=== PATIENT | male | born 1935 | race Caucasian/White ===

== ENCOUNTER 2016-09-24 05:59 | Inpatient (IN) ==
[2016-09-24] MEDS ORDERED: POTASSIUM CHLORIDE RIDER 10 MEQ in PREMIX 1 EACH IV PRN (06:03)
[2016-09-24] MEDS ORDERED: ASPIRIN 325 MG TABLET PO ONE (06:03)
[2016-09-24] MEDS ORDERED: DIAZEPAM 5 MG TABLET PO ONE (06:03)
[2016-09-24] MEDS ORDERED: MAGNESIUM SULF RIDER 2 GM in PREMIX 1 EACH IV PRN (06:03)
[2016-09-24] MEDS ORDERED: diphenhydrAMINE CAP 25 MG CAPSULE PO ONE (06:03)
[2016-09-24] MEDS ORDERED: HEPARIN/NACL 0.9% 2 UNITS/ML 1,000 ML IV ONE ×2 (06:38→06:44)
[2016-09-24] MEDS ORDERED: LIDOCAINE 1% 20 ML VIAL ONE ×2 (06:38→06:44)
[2016-09-24] MEDS ORDERED: DIAZEPAM 5 MG TABLET ONE (07:07)
[2016-09-24] MEDS ORDERED: diphenhydrAMINE CAP 25 MG CAPSULE ONE (07:07)
--- NOTE | 2016-09-24 07:09 | History and Physical Update ---
Sedation H&P Update - History and Physical H&P was reviewed, the patient examined and there: are no changes in the patients condition since last H&P was completed. - Dictation Physical: refer to scanned H&P - Physical Exam Mental Status: alert and oriented Heart: regular rate and rhythm Lung: clear to auscultation Abdomen: within normal limits Vitals: within normal limits - Sedation Plan for Sedation: moderate Patient Consent: Procedure disscussed with patient and patinet has consented., Risks and benefits were discussed with patient,including infection,, bleeding, injury to surrounding structures, seizure, temporary nerve, Patient understands and accepts potential risks/benefits and agrees to, proceed. ASA Class: II Airway Assessment: Class II: Soft palate, uvula, fauces visible
[2016-09-24] MEDS: SODIUM CHLORIDE 0.9% 1,000 ML IV SCH ×2 (07:10→17:46)
[2016-09-24] MEDS ORDERED: HYDROmorphone 2 MG/1 ML VIAL ONE (07:19)
[2016-09-24] MEDS ORDERED: MIDAZOLAM 2 MG/2 ML VIAL ONE (07:19)
[2016-09-24] MEDS ORDERED: ZALEPLON 5 MG CAPSULE PO PRN (08:12)
[2016-09-24] MEDS ORDERED: NITROGLYCERIN SL 0.4 MG TABLET SL PRN (08:12)
[2016-09-24] MEDS ORDERED: ONDANSETRON 4 MG/2 ML VIAL IV PRN (08:12)
[2016-09-24] MEDS ORDERED: ACETAMINOPHEN 325 MG TABLET PO PRN (08:12)
--- NOTE | 2016-09-24 08:12 | Cardiac Catheterization ---
Date of Procedure:: 09/24/16 Pre-op Diagnosis: Chest pain CAD Post-op diagnosis: same Procedure: Cardiac catheterization procedure note #1 left heart catheterization #2 selective coronary angiography #3 left ventriculography #4 vein graft angiography #5 KIRK angiography Omnipaque was used for the procedure Description of procedure Following sterile preparation draping of the right groin local anesthesia was achieved by infiltration with 1% Xylocaine. Using a Cook needle the right femoral artery was cannulated and a #6 sheath was inserted. A 6 Moroccan pigtail catheter introduced and advanced retrograde across aortic valve into the left ventricle and the end-diastolic pressure was recorded. Left ventricular atrophy was performed the DENNIS projection using 24 cc of contrast. A pullback recording was made across aortic valve. The pigtail catheter change for a 6 Moroccan left Kuldip catheter and left coronary angiography was performed in limited views. Catheter change for a 6 Moroccan right Amplatz catheter and right coronary angiography was performed in the HUNGARIAN projection only. The catheter change for a 6 Moroccan left coronary bypass graft catheter and vein graft angiography was performed in DENNIS and HUNGARIAN projections. The catheter change for a 6 Moroccan JENN catheter and KIRK angiography was performed in the HUNGARIAN projection only. The catheter and sheath were then removed and the femoral arteriotomy site was sealed percutaneously minx closure device with prompt cessation of bleeding and prompt return of femoral and foot pulses. The patient transferred back to telemetry in stable condition. Hemodynamic data Aortic pressure 132/54 mean of 86 LV 132/18 Selective coronary angiography the left main trunk has an ulcerated 90% distal stenosis. The LAD is densely calcified and occluded proximally. The circumflex is occluded proximally after a small OM1 takeoff. Right coronary is calcified and occluded proximally. The saphenous vein graft to the OM branch has a 90% stenosis in the midportion of the graft and a 99% stenosis at the distal anastomosis. Two moderate size OM branches extend out to the apex and are patent. The vein graft to the LAD has a ulcerated 99% proximal stenosis with slow flow. The distal LAD reaches the apex and has mild disease only. The vein graft to the distal right coronary has a 70% distal stenosis. This vessel provides right to left collaterals to several septal perforators. The JENN is a 2.5 Mazariegos non- tortuous patent vessel and excellent potential conduit for revascularization. Left ventriculography Ejection fraction is 50% with mild global hypokinesis. No mitral regurgitation under the conditions of the study. Conclusions #1 increased LVEDP 18 #2 ejection fraction 50% with mild global hypokinesis #3 no mitral regurgitation #4 no aortic valve gradient #5 left main trunk-ulcerated 90% distal stenosis #6 LAD-calcified, 100% proximal occlusion #7 circumflex-100% occlusion after small OM1 branch #8 dominant right coronary-calcified, 100% proximal occlusion #9 SVG to OM-yes sequential 90% mid and 99% distal anastomosis lesions. #10 SVG to LAD-ulcerated 99% proximal stenosis with slow flow. The distal LAD has mild disease only. #11 SVG to distal RCA-70% distal stenosis. This vessel provides right to left collaterals to several septal perforators #12 KIRK-2.5 mm non-tortuous widely patent vessel. Disposition The patient status post three-vessel CABG in 1991. 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 Significant myocardium is at risk. Dr. Harris has been counseled for redo CABG. Cine pictures were reviewed with the patient's Erick and his daughters Jessa and Liv. Continue normal saline hydration and recheck BMP in a.m. Implants: No implants Anesthesia: moderate conscious sedation Surgeon / Physician: Mark Anthony Wing Estimated blood loss: minimal Specimens: none sent Condition: stable Disposition: floor - Medications / Follow-up
[2016-09-24] MEDS: ATENOLOL 25 MG TABLET PO SCH (08:42)
[2016-09-24] MEDS ORDERED: ALFALFA PO SCH (09:00)
[2016-09-24] MEDS ORDERED: DEXTROSE 50% 25 GM/50 ML VIAL IV PRN ×2 (09:19)
[2016-09-24] MEDS ORDERED: GLUCAGON 1 MG VIAL IM PRN ×2 (09:19)
--- NOTE | 2016-09-24 09:19 | Cardiothoracic Progress Note ---
Cardiothoracic Subjective Interval history: Patient is a 80-year-old man who had coronary bypass surgery 25 years ago at which time he underwent triple-vessel grafting with saphenous vein graft to the anterior descending circumflex marginal and right coronary arteries. He had done well until recently when he has begun to have exertional chest discomfort and was admitted as an outpatient today for catheterization. Cardiac cath revealed occlusion of all 3 [place] coronary arteries with patency of his saphenous vein grafts but high-grade occlusive disease in all 3 bypass grafts. I agree that he would benefit from repeat bypass surgery and he is to be admitted for that purpose. I have scheduled surgery for Saturday morning and discussed it at length with the patient and his and daughters. Exam (Progress Note) - Constitutional Vitals: Period Temp Pulse Resp BP Sys/Lea Pulse Ox Last 24 Hr 97.9 F-97.9 F 58-58 16-16 164-164/78-78 96-97 Quality Measures - VTE Contraindication to Mechanical VTE Prophylaxis: Trauma to Legs
[2016-09-24] MEDS ORDERED: SODIUM CHLORIDE 0.9% 1,000 ML IV SCH (09:30)
[2016-09-24] MEDS ORDERED: ALBUTEROL 2.5 MG/3 ML NEB RESP TX PRN (13:00)
[2016-09-24] MEDS: LISINOPRIL/HCTZ 20-12.5 MG TABLET PO SCH (14:36)
[2016-09-24] MEDS: PANTOPRAZOLE 40 MG TABLET PO SCH (14:36)
[2016-09-24] MEDS: ROSUVASTATIN 20 MG TABLET PO SCH (21:24)
[2016-09-24] MEDS: ASPIRIN CHEW 81 MG TABLET PO SCH (21:24)
[2016-09-24] MEDS: CHLORHEXIDINE 0.12% ORAL RINSE 60 ML BOTTLE SWISH/SPIT SCH (21:25)
[2016-09-25] MEDS: SODIUM CHLORIDE 0.9% 1,000 ML IV SCH ×3 (01:50→15:27)
[2016-09-25 03:56] LABS: Allen Test Positive; Pt O2 Delivery Device Room Air
[2016-09-25 03:58] LABS: ABG HCO3 25.3 MMOL/L (20-26); ABG Oxygen Saturation 96.3 % (95-100); ABG PCO2 41.4 MM HG (35-48); ABG PH 7.403 (7.35-7.45); ABG PO2 78.2 MM HG (80-95); ABG TCO2 22.9 MMOL/L (23-27)
[2016-09-25 05:15] LABS: Basophils # 0.1 10*3/uL (0.0-0.2); Eosinophils # 0.3 10*3/uL (0.0-0.87); Eosinophils % 5.5 % (0.00-10.9); Hematocrit 37.5 VOL% (42.0-52.0); Hemoglobin 12.5 GM/DL (14.0-18.0); Immature Granulocytes % 0.6 %; Immature Granulocytes Absolute 0.03 #; Lymphocytes # 1.1 10*3/uL (1.4-4.0); Lymphocytes % 21.6 % (21.2-54.2); Mean Corpuscular HGB Conc 33.3 GM/DL (32-36); Mean Corpuscular Hemoglobin 29 PG (27-34); Mean Platelet Volume 9.3 FL (9.6-12.0); Monocytes # 0.6 10*3/uL (0.11-0.8); Monocytes % 12.1 % (1.7-12.7); Neutrophils % 59.2 % (38.7-73.9); Platelet Count 117 T/CUMM (130-400); Red Blood Count 4.36 MC/CUMM (3.8-5.5); Red Cell Distribution Width 14.5 % (9.3-17.3); White Blood Count 5.1 T/CUMM (4-12)
[2016-09-25 05:53] LABS: Albumin 2.7 G/DL (3.4-5.0); Bilirubin,Total 0.5 MG/DL (0.2-1.0); Osmolality,Calculated 280.3 MOS/KG (273-304)
--- NOTE | 2016-09-25 07:48 | EKG Report ---
Stationary ECG Study [facility] Test Date: 09/25/2016 7:47:07 AM Pat Name: JUAN BAKER Department: Room: 284 Gender: M Doctor Naturopathic: MCKENZIE : 1935 Requested by: Margarito Zepeda Order Number: [id number] Scotty MD: GHAZAL MARKHAM Intervals [place] Rate: 51 P: 62 NH: 167 QRS: 100 QRSD: 146 T: -87 QT: 462 QTc: 438 Interpretive Statements SINUS BRADYCARDIA WITH SINUS ARRHYTHMIA at 51 bpm RIGHT BUNDLE BRANCH BLOCK Electronically Signed On 09-25-16 08:25:33 CDT by GHAZAL MARKHAM [email or web address]
[2016-09-25] MEDS: LISINOPRIL/HCTZ 20-12.5 MG TABLET PO SCH (08:49)
[2016-09-25] MEDS: CHLORHEXIDINE 0.12% ORAL RINSE 60 ML BOTTLE SWISH/SPIT SCH ×2 (08:49→21:35)
[2016-09-25] MEDS: CHLORHEXIDINE 4% SOLN 118 ML BOTTLE TOP SCH ×3 (08:49→21:35)
[2016-09-25] MEDS: PANTOPRAZOLE 40 MG TABLET PO SCH (08:49)
[2016-09-25] MEDS: ATENOLOL 25 MG TABLET PO SCH (08:51)
--- NOTE | 2016-09-25 09:03 | Cardiothoracic Progress Note ---
Cardiothoracic Subjective Interval history: Patient is ready for surgery in the morning. Laboratory and x-ray studies look basically within normal limits. Patient has been pain-free since his catheterization yesterday. Exam (Progress Note) - Constitutional Vitals: Period Temp Pulse Resp BP Sys/Lea Pulse Ox Last 24 Hr 97.2 F-99.2 F 47-88 18-20 104-144/53-85 91-99 Result/EKG - Labs CBC & BMP: 09/25/16 03:25 09/25/16 03:25 Labs: Laboratory Results - last 24 hr 09/25/16 09/25/16 09/25/16 03:25 03:25 03:25 WBC 5.1 RBC 4.36 Hgb 12.5 L Hct 37.5 L MCV 86.0 L MCH 29 MCHC 33.3 RDW 14.5 Plt Count 117 L MPV 9.3 L Neut % (Auto) 59.2 Lymph % (Auto) 21.6 [place] % (Auto) 12.1 Eos % (Auto) 5.5 Baso % (Auto) 1.0 H Neut # (Auto) 3.0 Lymph # (Auto) 1.1 L [place] # (Auto) 0.6 Eos # (Auto) 0.3 Baso # (Auto) 0.1 Immature Gran % 0.6 Nucleated RBC % 0.0 Immature Gran # 0.03 Nucleated RBCs # 0.00 Immature Plt Fraction 0.0 ABG pH ABG pCO2 ABG pO2 ABG HCO3 ABG Total CO2 ABG O2 Saturation ABG Base Excess FiO2 Sodium 141 Potassium 4.0 Chloride 108 H Carbon Dioxide 27 Anion Gap 10.0 BUN 12 Creatinine 0.90 GFR Calculation 93 BUN/Creatinine Ratio 13.00 Glucose 94 Calculated Osmolality 280.3 Calcium 8.0 L Total Bilirubin 0.50 AST 16 ALT 17 Alkaline Phosphatase 51 Total Protein 5.0 L Albumin 2.7 L Globulin 2.3 Albumin/Globulin Ratio 1.1 Blood Type AB NEGATIVE Antibody Screen Negative Crossmatch See Detail 09/25/16 09/25/16 03:40 Unknown WBC RBC Hgb Hct MCV MCH MCHC RDW Plt Count MPV Neut % (Auto) Lymph % (Auto) [place] % (Auto) Eos % (Auto) Baso % (Auto) Neut # (Auto) Lymph # (Auto) [place] # (Auto) Eos # (Auto) Baso # (Auto) Immature Gran % Nucleated RBC % Immature Gran # Nucleated RBCs # Immature Plt Fraction ABG pH 7.403 ABG pCO2 41.4 ABG pO2 78.2 L ABG HCO3 25.3 ABG Total CO2 22.9 L ABG O2 Saturation 96.3 ABG Base Excess 1.0 FiO2 21.00 Sodium Potassium Chloride Carbon Dioxide Anion Gap BUN Creatinine GFR Calculation BUN/Creatinine Ratio Glucose Calculated Osmolality Calcium Total Bilirubin AST ALT Alkaline Phosphatase Total Protein Albumin Globulin Albumin/Globulin Ratio Blood Type AB NEGATIVE Antibody Screen Crossmatch Quality Measures - VTE Contraindication to Pharmacological VTE Prophylaxis: High Risk of Bleeding
--- NOTE | 2016-09-25 11:56 | XRay Report ---
XR chest 2V Indication: CAD Comparison: Chest x-ray dated March 19, 2016 Technique: Frontal and lateral views of the chest. Findings: Cardiomediastinal silhouette is stable status post sternotomy. Chronic change of the lungs without focal consolidation, pleural effusion, or pneumothorax. Continued elevation of the right hemidiaphragm. Visualized osseous and surrounding soft tissue structures appear grossly unchanged. IMPRESSION: Stable chest x-ray without acute cardiopulmonary process demonstrated. PROCEDURE INTERPRETED AT [facility] DEPARTMENT OF RADIOLOGY Final Report Signed by: Dr Feliciano Dickinson
--- NOTE | 2016-09-25 18:43 | Cardiology Progress Note ---
Shady Coreas Vanessa, RN, am scribing for, and in the presence of, Michelle Bond MD 18:42. Assessment and Plan - Time spent with patient Time spent with patient: Greater than 30 minutes (1) Hypertension Status: Chronic Assessment and plan: SEE PLAN OF CARE LISTED BELOW. Current Visit: Yes (2) CAD (coronary artery disease) Status: Chronic Assessment and plan: SEE PLAN OF CARE LISTED BELOW. Current Visit: Yes (3) CAD (coronary artery disease) of bypass graft Status: Chronic Assessment and plan: SEE PLAN OF CARE LISTED BELOW. Current Visit: Yes (4) History of coronary artery bypass graft x 3 Status: Chronic Assessment and plan: SEE PLAN OF CARE LISTED BELOW. Current Visit: Yes (5) Dyslipidemia Status: Chronic Assessment and plan: SEE PLAN OF CARE LISTED BELOW. Current Visit: Yes (6) History of carotid endarterectomy Status: Chronic Assessment and plan: SEE PLAN OF CARE LISTED BELOW. Current Visit: Yes (7) GERD (gastroesophageal reflux disease) Status: Chronic Assessment and plan: SEE PLAN OF CARE LISTED BELOW. Current Visit: Yes (8) History of carotid artery stenosis Status: Chronic Assessment and plan: SEE PLAN OF CARE LISTED BELOW. Current Visit: Yes Cardiology - PN: Subj Interval history: PRIMARY ESCAPE WHEEL TOOTH CUTTER: DR. WING SUMMARY: Mr. Goldberg is a 80 year old white male with risk factors significant for: age, hypertension, dyslipidemia, and previous history of CAD. He has never been a smoker. Patient is status post CABG x [address] Harris with SVG to LAD, SVG to OM, and SVG to PDA. He is a former patient of Dr. Hatch, and he had an abnormal but stable exercise cardiac stress test in April 2015 in the office which showed mixed inferolateral scar and ischemia with EF 55%. Patient had tolerated medical therapy well without anginal complaint. Mr. Goldberg was evaluated by Dr. Wing in clinic on September 19 as a work in for exertional chest pain with associated dyspnea and relieved with 3-5 minutes of rest. Due to clinical presentation and cardiac history, it was elected he undergo left heart catheterization to define coronary anatomy with percutaneous coronary intervention if necessary. 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 Wing. Cardiac cath revealed severe, high grade occlusive disease of all three saphenous vein grafts with significant myocardium at risk, EF 50% with mild global hypokinesis. After discussion with patient and family, Dr. Harris was consulted for redo CABG. Dr. Harris has evaluated , and patient is now scheduled to undergo coronary artery bypass grafting September 26. SEPTEMBER 25, 2016: Mr. Goldberg has been monitored overnight on telemetry unit. He is up out of bed this morning ambulating back from bathroom to bedside chair. is present with him. He is not having any anginal complaint this morning. Appetite is fair this morning with no nausea or vomiting. Right femoral artery cath site soft without hematoma, bruising, femoral bruit. Distal pulses present and palpable bilaterally. Labs reviewed and overall unremarkable with normal cell counts, electrolytes and renal function within normal limits. Sinus bradycardia, pulse rate 50, no ectopy or arrhythmia. SBP 110-130 mmHg. ASSESSMENT/PLAN: 1. CORONARY ARTERY DISEASE - Clinically stable at this time. Continue low dose ASA, JYOTSNA inhibitor, and statin. I am going to discontinue his beta-jac due to bradycardia. 2. HISTORY OF CABG - Status post saphenous vein grafting x 3 in 1991 and now has been found to have severe occlusive disease of all 3 grafts. Patient is scheduled for redo CABG on Tuesday 09/[address] Harris. 3. HYPERTENSION - Overall, fairly well controlled. Continue to monitor closely and adjust antihypertensives as medical condition indicates. 4. HYPERLIPIDEMIA - Continue rosuvastatin 20 mg PO nightly. FLP in clinic on August 10 unremarkable. 5. GERD - Continue PPI. 6. HISTORY OF CAROTID ARTERY STENOSIS - This was asymptomatic. He is now status post left CEA. No neurologic symptoms at this time. Exam (Progress Note) - Constitutional Vitals: Period Temp Pulse Resp BP Sys/Lea Pulse Ox Last 24 Hr 97.2 F-99.2 F 47-88 18-20 104-144/53-85 91-99 General appearance: normal weight, no acute distress - Head Head exam: Present: normal inspection. Absent: abrasion, contusion, hematoma, laceration - Eye Eye exam: Present: EOMI. Absent: periorbital swelling, scleral icterus Pupils: Present: ANGEL. Absent: dilated, fixed - ENT ENT exam: Present: normal external ear exam - Neck Neck exam: Present: normal inspection. Absent: tenderness - Respiratory Respiratory exam: Present: clear to auscultation bilaterally. Absent: rales, rhonchi, stridor, wheezes - Cardiovascular Cardiovascular exam: Present: bradycardia (regular rhythm), carotid bruit ( bilateral). Absent: irregular rhythm, JVD, systolic murmur, tachycardia - GI/Abdominal GI/Abdominal exam: Present: normal bowel sounds, soft. Absent: ascites, distended, firm, mass, tenderness - Extremities Exam Extremities exam: Present: normal inspection, normal capillary refill, full ROM. Absent: calf tenderness, edema - Back Exam Back exam: Present: normal inspection - Neurological Exam Neurological exam: Present: alert, oriented X3 - Psychiatric Psychiatric exam: Present: normal affect, normal mood. Absent: agitated, anxious, depressed - Skin Skin exam: Present: normal color, warm, dry, intact, other (right groin cath site dsg removed - area soft, no hematoma, bruise, bruit). Absent: abrasion, cyanosis, diaphoretic, rash Result/EKG - Labs CBC & BMP: 09/25/16 03:25 09/25/16 03:25 Lab Results: I have reviewed the past 24 hour labs Labs: Laboratory Results - last 24 hr 09/25/16 09/25/16 09/25/16 03:25 03:25 03:25 WBC 5.1 RBC 4.36 Hgb 12.5 L Hct 37.5 L MCV 86.0 L MCH 29 MCHC 33.3 RDW 14.5 Plt Count 117 L MPV 9.3 L Neut % (Auto) 59.2 Lymph % (Auto) 21.6 [place] % (Auto) 12.1 Eos % (Auto) 5.5 Baso % (Auto) 1.0 H Neut # (Auto) 3.0 Lymph # (Auto) 1.1 L [place] # (Auto) 0.6 Eos # (Auto) 0.3 Baso # (Auto) 0.1 Immature Gran % 0.6 Nucleated RBC % 0.0 Immature Gran # 0.03 Nucleated RBCs # 0.00 Immature Plt Fraction 0.0 ABG pH ABG pCO2 ABG pO2 ABG HCO3 ABG Total CO2 ABG O2 Saturation ABG Base Excess FiO2 Sodium 141 Potassium 4.0 Chloride 108 H Carbon Dioxide 27 Anion Gap 10.0 BUN 12 Creatinine 0.90 GFR Calculation 93 BUN/Creatinine Ratio 13.00 Glucose 94 Calculated Osmolality 280.3 Calcium 8.0 L Total Bilirubin 0.50 AST 16 ALT 17 Alkaline Phosphatase 51 Total Protein 5.0 L Albumin 2.7 L Globulin 2.3 Albumin/Globulin Ratio 1.1 Blood Type AB NEGATIVE Antibody Screen Negative Crossmatch See Detail 09/25/16 09/25/16 03:40 Unknown WBC RBC Hgb Hct MCV MCH MCHC RDW Plt Count MPV Neut % (Auto) Lymph % (Auto) [place] % (Auto) Eos % (Auto) Baso % (Auto) Neut # (Auto) Lymph # (Auto) [place] # (Auto) Eos # (Auto) Baso # (Auto) Immature Gran % Nucleated RBC % Immature Gran # Nucleated RBCs # Immature Plt Fraction ABG pH 7.403 ABG pCO2 41.4 ABG pO2 78.2 L ABG HCO3 25.3 ABG Total CO2 22.9 L ABG O2 Saturation 96.3 ABG Base Excess 1.0 FiO2 21.00 Sodium Potassium Chloride Carbon Dioxide Anion Gap BUN Creatinine GFR Calculation BUN/Creatinine Ratio Glucose Calculated Osmolality Calcium Total Bilirubin AST ALT Alkaline Phosphatase Total Protein Albumin Globulin Albumin/Globulin Ratio Blood Type AB NEGATIVE Antibody Screen Crossmatch - Diagnostic Findings Procedure: Chest x-ray: image reviewed by me, report reviewed by me - EKG EKG results: interpreted by me, no acute changes EKG shows: sinus rhythm Quality Measures - VTE Contraindication to Pharmacological VTE Prophylaxis: High Risk of Bleeding Varun Coreas Jennifer, MD, personally performed the services described in this documentation, ascribed by Maggie Caruso RN in my presence, and it is both accurate and complete 842 .
[2016-09-25] MEDS: ROSUVASTATIN 20 MG TABLET PO SCH (21:34)
[2016-09-25] MEDS: ASPIRIN CHEW 81 MG TABLET PO SCH (21:35)
[2016-09-26] MEDS: SODIUM CHLORIDE 0.9% 1,000 ML IV SCH ×2 (02:26→07:00)
[2016-09-26] MEDS ORDERED: CEFUROXIME INJ 1,500 MG in SODIUM CHLORIDE 0.9% 100 ML IV ONE (04:00)
[2016-09-26] MEDS ORDERED: VANCOMYCIN 1,000 MG VIAL ONE (04:42)
[2016-09-26] MEDS ORDERED: PAPAVERINE 60 MG/2 ML VIAL ONE (04:42)
[2016-09-26] MEDS ORDERED: SUFentanil 250 MCG/5 ML AMP ONE (05:50)
[2016-09-26] MEDS ORDERED: MIDAZOLAM 10 MG/2 ML VIAL ONE ×3 (05:51→12:11)
[2016-09-26] MEDS: PANTOPRAZOLE 40 MG TABLET PO SCH (06:00)
[2016-09-26] MEDS: LISINOPRIL/HCTZ 20-12.5 MG TABLET PO SCH (06:00)
[2016-09-26] MEDS: CHLORHEXIDINE 4% SOLN 118 ML BOTTLE TOP SCH ×2 (06:01→09:00)
[2016-09-26] MEDS ORDERED: AMIODARONE 150 MG/3 ML VIAL ONE (06:45)
[2016-09-26] MEDS ORDERED: VECURONIUM 10 MG VIAL IV ONE (06:45)
[2016-09-26] MEDS ORDERED: LIDOCAINE 2% 5 ML VIAL ONE (06:45)
[2016-09-26] MEDS ORDERED: FUROSEMIDE 20 MG/2 ML VIAL ONE ×2 (06:45→11:18)
[2016-09-26] MEDS ORDERED: PHENYLEPHRINE 1 MG/10 ML SYRINGE IV ONE (06:45)
[2016-09-26] MEDS ORDERED: POTASSIUM CHLORIDE RIDER 100 ML IV ONE (07:13)
[2016-09-26] MEDS ORDERED: NITROPRUSSIDE 50 MG/2 ML VIAL ONE (07:13)
[2016-09-26] MEDS ORDERED: PHENYLEPHRINE DRIP 40 MG/250 ML PREMIX IV ONE (07:13)
[2016-09-26 07:38] LABS: ABG Base Excess -0.3 MMOL/L (-2.5-2.5); ABG HCO3 24.2 MMOL/L (20-26); ABG PCO2 36.9 MM HG (35-48); ABG PH 7.418 (7.35-7.45); ABG TCO2 21.1 MMOL/L (23-27); Glucose Heart Surgery 114 MG/DL (74-106); Hematocrit Heart Surgery 36.5 PERCENT (42-52); Hemoglobin Heart Surgery 11.9 G/DL (14.0-18.0); Ionized Calcium Arterial 1.19 MMOL/L (1.21-1.46); PCO2 Patient Temp Arterial 36.9 MMHG; PH Patient Temp Arterial 7.418; Patient Temperature 37 CELCIUS; Potassium Heart/CVR 3.6 MMOL/L (3.5-5.1); Sodium Heart/CVR 137 MMOL/L (135-145)
[2016-09-26 07:42] LABS: Apearance,Urine CLEAR (Clear); Bilirubin,Urine Negative (Negative); Blood, Urine Moderate mg/dL (Negative); Glucose,Urine (UA) Negative (Negative); Ketones,Urine Negative (Negative); Nitrite,Urine Negative (Negative); Protein,Urine Negative; RBC,Urine 2 /HPF (0-4); Squamous Epithelial Cell,Urine Occasional /HPF (0-10); Urine Color Straw (Yellow); Urine Specific Gravity 1.006 (1.001-1.035); Urine Urobilinogen < 2.0 EU/DL (0.2-1.0)
[2016-09-26] MEDS: CHLORHEXIDINE 0.12% ORAL RINSE 60 ML BOTTLE SWISH/SPIT SCH ×2 (09:00→22:03)
[2016-09-26 09:22] LABS: Hemoglobin Heart Surgery 9.7 G/DL (14.0-18.0); PCO2 Patient Temp Venous 36.6 MM HG; PH Patient Temp Venous 7.435; PO2 Patient Temp Venous 36.8 MM HG; Potassium Heart/CVR 4.2 MMOL/L (3.5-5.1); VBG Base Excess 0.7 MEQ/L (0-4); VBG HCO3 24.7 MEQ/L (24-28); VBG Oxygen Saturation 81.1 %; VBG PCO2 42.3 MMHG (41-51); VBG PH 7.391; VBG PO2 45.3 MMHG (17-40)
[2016-09-26 09:53] LABS: Hematocrit Heart Surgery 29.3 PERCENT (42-52); Hemoglobin Heart Surgery 9.5 G/DL (14.0-18.0); PCO2 Patient Temp Venous 34.4 MM HG; PH Patient Temp Venous 7.47; PO2 Patient Temp Venous 32.7 MM HG; Potassium Heart/CVR 4.3 MMOL/L (3.5-5.1); VBG Base Excess 1.7 MEQ/L (0-4); VBG HCO3 25.6 MEQ/L (24-28); VBG Oxygen Saturation 78.1 %; VBG PCO2 39.7 MMHG (41-51); VBG PH 7.426; VBG PO2 40.4 MMHG (17-40)
[2016-09-26 10:25] LABS: PCO2 Patient Temp Venous 33.2 MM HG; PH Patient Temp Venous 7.481; PO2 Patient Temp Venous 34.9 MM HG; Potassium Heart/CVR 4.2 MMOL/L (3.5-5.1); VBG Base Excess 1.7 MEQ/L (0-4); VBG HCO3 25.6 MEQ/L (24-28); VBG Oxygen Saturation 80.6 %; VBG PCO2 38.4 MMHG (41-51); VBG PH 7.436
[2016-09-26] MEDS ORDERED: SODIUM BICARBONATE 50 MEQ/50 ML SYRINGE IV ONE (11:17)
[2016-09-26] MEDS ORDERED: ALBUMIN 25% 25 GM/100 ML VIAL IV ONE (11:17)
[2016-09-26] MEDS ORDERED: PROTAMINE SULFATE 250 MG/25 ML VIAL IV ONE (11:17)
[2016-09-26] MEDS ORDERED: DEXTROSE 5% KCL 20 MEQ 40 MEQ/2,000 ML BAG IV ONE (11:17)
[2016-09-26] MEDS ORDERED: PHENYLEPHRINE DRIP 20 MG/250 ML PREMIX IV ONE (11:17)
[2016-09-26] MEDS ORDERED: MAGNESIUM SULFATE 1 GM/2 ML VIAL ONE (11:18)
[2016-09-26] MEDS ORDERED: methylPREDNISolone SOD SUC 1,000 MG/8 ML VIAL ONE (11:18)
[2016-09-26] MEDS ORDERED: HEPARIN 10,000 UNIT/10 ML VIAL ONE (11:18)
[2016-09-26] MEDS ORDERED: MANNITOL 12.5 GM/50 ML VIAL IV ONE (11:18)
[2016-09-26] MEDS ORDERED: POTASSIUM CHLORIDE 20 MEQ/10 ML VIAL ONE (11:18)
[2016-09-26 11:21] LABS: ABG Base Excess -0.5 MMOL/L (-2.5-2.5); ABG PCO2 39.6 MM HG (35-48); ABG PH 7.394 (7.35-7.45); Glucose Heart Surgery 223 MG/DL (74-106); Ionized Calcium Arterial 1.27 MMOL/L (1.21-1.46); PCO2 Patient Temp Arterial 39.6 MMHG; PH Patient Temp Arterial 7.394; Patient Temperature 37 CELCIUS; Sodium Heart/CVR 136 MMOL/L (135-145)
[2016-09-26] MEDS ORDERED: NITROGLYCERIN DRIP 50 MG/250 ML BOTTLE IV SCH (12:00)
--- NOTE | 2016-09-26 12:02 | XRay Report ---
XR chest 1V portable Indication: Surgical miscount. Possible foreign body. Multiple sternal wires are present Comparison: None. Technique: Portable AP chest was performed. Findings: Curvilinear density in the lower right chest within the right cardiophrenic angle was not previously demonstrated. Wire sutures to the right of midline adjacent to right hilum remain present. Additional sternal wires are present. Bilateral chest tubes are present. Right IJ central venous catheter is present. Endotracheal tube is in place. NG tube or mediastinal drain is present. Impression: 1. Curvilinear density in the right cardiophrenic angle possibly within the posterior sulcus is of uncertain etiology. This does not appear to represent typical surgical needle. No other abnormalities are present to suggest foreign body. 09/26/2016 11:56 AM PROCEDURE INTERPRETED AT [facility] DEPARTMENT OF RADIOLOGY Final Report Signed by: Dr. Jack Acharya
[2016-09-26] MEDS ORDERED: ePHEDrine 50 MG/ML AMP ONE (12:10)
[2016-09-26] MEDS ORDERED: SUFentanil 50 MCG/ML AMP ONE (12:11)
--- NOTE | 2016-09-26 12:11 | Operative Note ---
Date of procedure: 09/26/16 Pre-op diagnosis: Recurrent coronary artery disease Post-op diagnosis: same Procedure: Procedure: Repeat coronary bypass surgery with an internal mammary graft to the circumflex marginal coronary artery saphenous vein graft to the anterior descending and right coronary arteries. Findings: Patient is a 80-year-old man who underwent bypass surgery 25 years ago at which time he had vein graft to the circumflex marginal anterior descending and right coronary arteries. He has developed recurrent chest pain and cardiac catheterization demonstrated patency of 3 coronary grafts but significant disease in all 3 grafts. Patient was advised to have repeat bypass surgery. Time of surgery left internal mammary artery was grafted to the circumflex marginal coronary artery. Saphenous vein grafts were placed to the anterior descending and right coronary arteries. Patient tolerated procedure well and returned to recovery in satisfactory condition. Procedure: Patient was brought to the operating room placed in the operating table in supine position. After satisfactory induction of general anesthesia the chest abdomen and legs were prepped and draped in sterile fashion. Greater saphenous vein was harvested from the right thigh and prepared as an arterial graft. Incision in the leg was closed with 3-0 subcuticular Monocryl and 3-0 subcutaneous Monocryl. A standard sternotomy incision was made in the previous sternal wires were removed and the sternum divided. The left internal mammary artery was dissected free from its position in the anterior chest wall prepared as an arterial graft. Heart was then dissected free from any adhesions from previous surgery and then the patient was made ready for cardiopulmonary bypass with systemic heparinization and cannulation of the ascending aorta and right atrium. Cardiopulmonary bypass was begun and the aorta was crossclamped and the heart arrested with cardioplegia solution injected into the aortic root. Heart was protected during the period of crossclamping with topical saline slush. Distal anastomoses were constructed as noted above and proximal anastomoses were constructed between the ascending aorta and the inflow ends of the saphenous vein graft. The aorta was then unclamped reestablishing cardiac action. Once the patient was rewarmed patient was weaned from cardiopulmonary bypass without difficulty. Heparin effect was reversed with protamine and decannulation carried out with a defects in the right atrium and ascending aorta closed with 3-0 Prolene. Operative field was inspected for hemostasis and this was considered adequate incision was closed with interrupted stainless steel wire and the sternum and 0 Monocryl in the presternal fascia. The skin was closed with 3-0 subcuticular Monocryl. Chest tubes were left in each hemithorax and in the anterior mediastinum and brought out through separate stab incisions. Sterile dressings were applied the patient was returned to recovery in satisfactory condition. Surgeon / Physician: Margarito Harris Estimated blood loss: other (Unable to determine because of cardiopulmonary bypass) Condition: stable Disposition: ICU Results - Labs CBC & BMP: 09/26/16 11:19 09/25/16 03:25 Discharge Plan - Discharge Medications No Action Rosuvastatin Calcium 20 mg PO BEDTIME Albuterol Inhaler [Proventil Inhaler] 2 puff INH Q4-6H PRN PRN Reason: Shortness Of Breath Omeprazole 20 mg PO DAILY Lisinopril/Hydrochlorothiazide [Lisinopril-Hctz 20-12.5 mg Tab] 1 each PO DAILY Fluticasone 50 Mcg Nasal [place] [Flonase Nasal [place]] 1 spray BOTH NARES DAILY Aspirin 81 mg PO BEDTIME [place] 1,200 mg PO DAILY Sildenafil Citrate [Viagra] 100 mg PO DAILY PRN PRN Reason: Erectile Dysfunction Atenolol 25 mg PO DAILY - Follow Up or Referral - Forms/Instructions
[2016-09-26] MEDS ORDERED: SODIUM CHLORIDE 0.9% 2,000 ML IV ONE (12:12)
[2016-09-26] MEDS ORDERED: SEVOFLURANE 1 UNIT/15 MINUTE INH ONE (12:12)
[2016-09-26] MEDS ORDERED: LACTATED RINGERS 2,000 ML IV ONE (12:12)
[2016-09-26] MEDS ORDERED: SODIUM CHLORIDE 0.9% 250 ML IV ONE (12:12)
[2016-09-26] MEDS ORDERED: PROTAMINE SULFATE 50 MG/5 ML VIAL IV ONE ×2 (12:15→12:19)
[2016-09-26] MEDS ORDERED: ACETAMINOPHEN 650 MG SUPP RECTAL PRN (12:25)
[2016-09-26] MEDS ORDERED: PHENYLEPHRINE DRIP 40 MG/250 ML PREMIX IV PRN (12:25)
[2016-09-26] MEDS ORDERED: MIDAZOLAM 10 MG/2 ML VIAL IV PRN (12:25)
[2016-09-26] MEDS ORDERED: MAGNESIUM SULF RIDER 4 GM in PREMIX 1 EACH IV PRN (12:25)
[2016-09-26] MEDS ORDERED: NITROPRUSSIDE 100 MG in DEXTROSE 5% 250 ML IV PRN (12:25)
[2016-09-26] MEDS ORDERED: CALCIUM CHLORIDE 1,000 MG/10 ML SYRINGE IV PRN (12:25)
[2016-09-26] MEDS ORDERED: VECURONIUM 10 MG VIAL IV PRN ×2 (12:25)
[2016-09-26] MEDS ORDERED: INSULIN REGULAR 100 UNIT/ML IV PRN (12:25)
[2016-09-26] MEDS ORDERED: MAGNESIUM SULF RIDER 2 GM in PREMIX 1 EACH IV PRN (12:25)
[2016-09-26] MEDS ORDERED: LACTATED RINGERS 250 ML IV PRN (12:25)
[2016-09-26] MEDS ORDERED: INSULIN REGULAR 100 UNIT/ML IV ONE (12:25)
[2016-09-26] MEDS ORDERED: DEXTROSE 50% 25 GM/50 ML SYRINGE IV PRN ×2 (12:25)
[2016-09-26] MEDS ORDERED: POTASSIUM CHLORIDE RIDER 10 MEQ in PREMIX 1 EACH IV PRN (12:25)
[2016-09-26] MEDS ORDERED: MIDAZOLAM 2 MG/2 ML VIAL IV PRN (12:25)
[2016-09-26] MEDS ORDERED: MORPHINE 10 MG/1 ML VIAL IV PRN (12:25)
[2016-09-26] MEDS ORDERED: INSULIN REGULAR DRIP 100 ML IV SCH (12:30)
[2016-09-26] MEDS ORDERED: SODIUM CHLORIDE 0.45% 1,000 ML IV SCH ×2 (12:30)
[2016-09-26 12:35] LABS: ABG Base Excess 0.4 MMOL/L (-2.5-2.5); ABG HCO3 24.8 MMOL/L (20-26); ABG PCO2 35.9 MM HG (35-48); ABG PH 7.438 (7.35-7.45); ABG TCO2 21.8 MMOL/L (23-27); Glucose Heart Surgery 178 MG/DL (74-106); Hematocrit Heart Surgery 33.4 PERCENT (42-52); Hemoglobin Heart Surgery 10.8 G/DL (14.0-18.0); Potassium Heart/CVR 3.8 MMOL/L (3.5-5.1)
[2016-09-26 12:38] LABS: Basophils % 0.2 % (0.0-0.8); Eosinophils # 0.1 10*3/uL (0.0-0.87); Eosinophils % 0.6 % (0.00-10.9); Hematocrit 31.8 VOL% (42.0-52.0); Hemoglobin 10.9 GM/DL (14.0-18.0); Immature Granulocytes % 0.9 %; Immature Granulocytes Absolute 0.07 #; Lymphocytes # 0.6 10*3/uL (1.4-4.0); Lymphocytes % 7.8 % (21.2-54.2); Mean Corpuscular HGB Conc 34.3 GM/DL (32-36); Mean Corpuscular Hemoglobin 29 PG (27-34); Mean Corpuscular Volume 84.4 FL (87-102); Mean Platelet Volume 9.1 FL (9.6-12.0); Monocytes # 0.5 10*3/uL (0.11-0.8); Monocytes % 5.7 % (1.7-12.7); Neutrophils # 6.9 10*3/uL (1.4-7.4); Neutrophils % 84.8 % (38.7-73.9); Platelet Count 95 T/CUMM (130-400); Red Blood Count 3.77 MC/CUMM (3.8-5.5); Red Cell Distribution Width 14.3 % (9.3-17.3); White Blood Count 8.1 T/CUMM (4-12)
[2016-09-26] MEDS: POTASSIUM CHLORIDE RIDER 20 MEQ in PREMIX 1 EACH IV PRN ×5 (12:45→22:02)
[2016-09-26] MEDS: KETOROLAC 30 MG/1 ML VIAL IV SCH ×2 (12:54→18:30)
--- NOTE | 2016-09-26 12:55 | Operative Note ---
Date of procedure: 09/26/16 Pre-op diagnosis: Severe coronary artery disease Post-op diagnosis: same Procedure: 1. [place] of the right great saphenous vein from the groin to the knee level. 2. Assist with coronary artery bypass graft. Details of the procedure: I made an incision from the groin crease all the way down to the knee level on the medial side. The saphenous vein was identified. It was circumferentially dissected and all the tributaries were clipped. It was then resected and reversed and tested for leaks. There was no leaks. Hemostasis was achieved. The subcutaneous tissue and the skin were closed. I then moved up to assist Dr. Harris with coronary artery bypass graft. I assisted with completion of cannulation as well as distal anastomoses of the bypass grafts. There were done successfully without any problems. Details of this procedure are dictated by Dr. Harris in a separate note. Surgeon / Physician: Sean River Results - Labs CBC & BMP: 09/26/16 12:34 09/25/16 03:25 Discharge Plan - Discharge Medications No Action Rosuvastatin Calcium 20 mg PO BEDTIME Albuterol Inhaler [Proventil Inhaler] 2 puff INH Q4-6H PRN PRN Reason: Shortness Of Breath Omeprazole 20 mg PO DAILY Lisinopril/Hydrochlorothiazide [Lisinopril-Hctz 20-12.5 mg Tab] 1 each PO DAILY Fluticasone 50 Mcg Nasal [place] [Flonase Nasal [place]] 1 spray BOTH NARES DAILY Aspirin 81 mg PO BEDTIME [place] 1,200 mg PO DAILY Sildenafil Citrate [Viagra] 100 mg PO DAILY PRN PRN Reason: Erectile Dysfunction Atenolol 25 mg PO DAILY - Follow Up or Referral - Forms/Instructions
[2016-09-26 13:20] LABS: Burr Cells 2+
[2016-09-26 13:21] LABS: Hypochromasia Slight; Platelet Estimate Decreased
[2016-09-26 13:33] LABS: Albumin 2.4 G/DL (3.4-5.0); Bilirubin,Total 1.3 MG/DL (0.2-1.0); Calcium 7.8 MG/DL (8.5-10.1); Magnesium 2.2 MG/DL (1.8-2.4); Osmolality,Calculated 285.1 MOS/KG (273-304); Potassium 3.9 MMOL/L (3.5-5.1); Total Protein 4.3 G/DL (6.4-8.3)
[2016-09-26 13:46] LABS: CKMB % 11.3 %
[2016-09-26 13:51] LABS: Troponin I Only 5.05 NG/ML (0.00-0.045)
[2016-09-26 14:18] LABS: ABG Base Excess 1.2 MMOL/L (-2.5-2.5); ABG HCO3 25.5 MMOL/L (20-26); ABG Oxygen Saturation 99.7 % (95-100); ABG PCO2 32.7 MM HG (35-48); ABG PH 7.477 (7.35-7.45); ABG TCO2 21.5 MMOL/L (23-27); Glucose Heart Surgery 153 MG/DL (74-106); Hematocrit Heart Surgery 34.7 PERCENT (42-52); Hemoglobin Heart Surgery 11.2 G/DL (14.0-18.0); Potassium Heart/CVR 4.7 MMOL/L (3.5-5.1)
[2016-09-26] MEDS: ALBUMIN 5% 12.5 GM in PREMIX 1 EACH IV PRN ×6 (14:30→20:36)
[2016-09-26 14:45] LABS: INR 1.2; PT Patient Result 13.1 SECS; Partial Thromboplastin Time 29.5 SECS (0-40)
--- NOTE | 2016-09-26 14:49 | XRay Report ---
XR chest 1V portable Indication: Line placement Comparison: AP chest 09/26/2016. Technique: Portable AP chest was performed. Findings: Interval placement of [place]-Brittany catheter has occurred the tip lying within the pulmonary artery. Otherwise the chest is stable and demonstrates little change. Impression: 1. Interval placement Pe[place]-Brittany catheter as detailed. 09/26/2016 2:46 PM PROCEDURE INTERPRETED AT [facility] DEPARTMENT OF RADIOLOGY Final Report Signed by: Dr. Jack Acharya
--- NOTE | 2016-09-26 15:30 | Cardiology Progress Note ---
Shady Coreas Vanessa, RN, am scribing for, and in the presence of, Michelle Bond MD 15:29. Assessment and Plan - Time spent with patient Time spent with patient: Greater than 30 minutes (1) Hypertension Status: Chronic Assessment and plan: SEE PLAN OF CARE LISTED BELOW. Current Visit: Yes (2) CAD (coronary artery disease) Status: Chronic Assessment and plan: SEE PLAN OF CARE LISTED BELOW. Current Visit: Yes (3) CAD (coronary artery disease) of bypass graft Status: Chronic Assessment and plan: SEE PLAN OF CARE LISTED BELOW. Current Visit: Yes (4) History of coronary artery bypass graft x 3 Status: Chronic Assessment and plan: SEE PLAN OF CARE LISTED BELOW. Current Visit: Yes (5) Dyslipidemia Status: Chronic Assessment and plan: SEE PLAN OF CARE LISTED BELOW. Current Visit: Yes (6) History of carotid endarterectomy Status: Chronic Assessment and plan: SEE PLAN OF CARE LISTED BELOW. Current Visit: Yes (7) GERD (gastroesophageal reflux disease) Status: Chronic Assessment and plan: SEE PLAN OF CARE LISTED BELOW. Current Visit: Yes (8) History of carotid artery stenosis Status: Chronic Assessment and plan: SEE PLAN OF CARE LISTED BELOW. Current Visit: Yes Cardiology - PN: Subj Interval history: PRIMARY THEORETICAL PHYSICIST: DR. WING SUMMARY: Mr. Goldberg is a 80 year old white male with risk factors significant for: age, hypertension, dyslipidemia, and previous history of CAD. He has never been a smoker. Patient is status post CABG x [address] Harris with SVG to LAD, SVG to OM, and SVG to PDA. He is a former patient of Dr. aHtch, and he had an abnormal but stable exercise cardiac stress test in April 2015 in the office which showed mixed inferolateral scar and ischemia with EF 55%. Patient had tolerated medical therapy well without anginal complaint. Mr. Goldberg was evaluated by Dr. Wing in clinic on September 19 as a work in for exertional chest pain with associated dyspnea and relieved with 3-5 minutes of rest. Due to clinical presentation and cardiac history, it was elected he undergo left heart catheterization to define coronary anatomy with percutaneous coronary intervention if necessary. Patient presented to [facility] on September 24 for elective cath per Dr. Wing. Cardiac cath revealed severe, high grade occlusive disease of all three saphenous vein grafts with significant myocardium at risk, EF 50% with mild global hypokinesis. After discussion with patient and family, Dr. Harris was consulted for redo CABG. Dr. Harris has evaluated , and patient is scheduled to undergo repeat coronary artery bypass grafting September 26. September: Patient taken to the OR per Dr. Harris and Dr. River this morning for redo CABG , and he is now status post grafting 3 with KIRK to circumflex marginal, SVG to LAD, and SVG to RCA. He is now in the CVR post procedure. Patient has intubated and sedated. Low-dose vasopressor in place and being weaned as tolerated. BP 87/60 per arterial line. Regular rate and rhythm. We will continue to follow along perioperatively. ASSESSMENT/PLAN: 1. CORONARY ARTERY DISEASE - Clinically stable at this time. Continue low dose ASA, JYOTSNA inhibitor, and statin. Bradycardia improved today after discontinuing beta jac. 2. HISTORY OF CABG - Status post saphenous vein grafting x 3 in 1991 and now has been found to have severe occlusive disease of all 3 grafts. He is now s/p redo CABG x 3 with KIRK to Cx marginal, SVG to LAD, and SVG to RCA. Continue current plan of care. 3. HYPERTENSION - Borderline hypotensive in immediate postoperative period. Low dose vasopressor being weaned as tolerated. 4. HYPERLIPIDEMIA - Continue rosuvastatin 20 mg PO nightly. FLP in clinic on August 10 unremarkable. 5. GERD - Continue PPI. 6. HISTORY OF CAROTID ARTERY STENOSIS - This was asymptomatic. He is now status post left CEA. No neurologic symptoms at this time. Exam (Progress Note) - Constitutional Vitals: Period Temp Pulse Resp BP Sys/Lea Pulse Ox Last 24 Hr 96.9 F-98.6 F 56-81 10-81 92-150/56-70 93-99 Exam: General appearance: normal weight. intubated, sedated, mechanically ventilated in CVR. - Head Head exam: Present: normal inspection. Absent: abrasion, contusion, hematoma, laceration - Eye Eye exam: Present: EOMI. Absent: periorbital swelling, scleral icterus Pupils: Present: ANGEL. Absent: dilated, fixed - ENT ENT exam: Present: normal external ear exam - Neck Neck exam: Present: normal inspection. Absent: tenderness - Respiratory Respiratory exam: Present: clear to auscultation bilaterally anteriorly. Absent : rales, rhonchi, stridor, wheezes - Cardiovascular Cardiovascular exam: Present: regular rhythm and rate, carotid bruit (bilateral) . Absent: irregular rhythm, JVD, systolic murmur, tachycardia - GI/Abdominal GI/Abdominal exam: Present: normal bowel sounds, soft. Absent: ascites, distended, firm, mass, tenderness - Extremities Exam Extremities exam: Present: normal inspection, normal capillary refill, full ROM. Absent: calf tenderness, edema - Neurological Exam Neurological exam: Present: unable to adequately assess due to sedation with mechanical ventilation. - Psychiatric Psychiatric exam: Present: unable to assess due to sedation with mechanical ventilation. - Skin Skin exam: Present: normal color, warm, dry. other (sternal incision and right lower leg incision are intact with dressings in place). Absent: abrasion, cyanosis, diaphoretic, rash Result/EKG - Labs CBC & BMP: 09/26/16 12:34 09/26/16 12:34 Lab Results: I have reviewed the past 24 hour labs Labs: Laboratory Results - last 24 hr 09/25/16 09/26/16 09/26/16 03:25 05:46 07:31 WBC RBC Hgb Hct MCV MCH MCHC RDW Plt Count 79 L D MPV Neut % (Auto) Lymph % (Auto) [place] % (Auto) Eos % (Auto) Baso % (Auto) Neut # (Auto) Lymph # (Auto) [place] # (Auto) Eos # (Auto) Baso # (Auto) Immature Gran % Nucleated RBC % Immature Gran # Nucleated RBCs # Platelet Estimate Immature Plt Fraction Hypochromasia Joni Cells Patient Temperature ABG pH ABG pH at Pt Temp ABG pCO2 ABG pCO2 at Pt Temp ABG pO2 ABG pO2 at Pt Temp ABG HCO3 ABG Total CO2 ABG O2 Saturation ABG Base Excess ABG Sodium VBG pH VBG pCO2 VBG pO2 VBG HCO3 VBG Total CO2 VBG O2 Saturation VBG Base Excess Hemoglobin Hematocrit Potassium Glucose Ionized Calcium FiO2 Sodium Chloride Carbon Dioxide Anion Gap BUN Creatinine GFR Calculation BUN/Creatinine Ratio POC Glucose 105 Calculated Osmolality Calcium Venous Ioniz Calcium Magnesium Total Bilirubin AST ALT Alkaline Phosphatase Total Protein Albumin Globulin Albumin/Globulin Ratio Urine Color Urine Appearance Urine pH Ur Specific [place] Urine Protein Urine Glucose (UA) Urine Ketones Urine Blood Urine Nitrate Urine Bilirubin Urine Urobilinogen Urine Leukocytes Urine RBC Ur Squamous Epith Cells Ur Culture Indicated? Blood Type AB NEGATIVE Antibody Screen Negative Crossmatch See Detail 09/26/16 09/26/16 09/26/16 07:31 07:37 09:20 WBC RBC Hgb Hct MCV MCH MCHC RDW Plt Count MPV Neut % (Auto) Lymph % (Auto) [place] % (Auto) Eos % (Auto) Baso % (Auto) Neut # (Auto) Lymph # (Auto) [place] # (Auto) Eos # (Auto) Baso # (Auto) Immature Gran % Nucleated RBC % Immature Gran # Nucleated RBCs # Platelet Estimate Immature Plt Fraction Hypochromasia Joni Cells Patient Temperature 37 34 ABG pH 7.418 ABG pH at Pt Temp 7.418 7.435 ABG pCO2 36.9 ABG pCO2 at Pt Temp 36.9 36.6 ABG pO2 342.0 H ABG pO2 at Pt Temp 342.0 36.8 ABG HCO3 24.2 ABG Total CO2 21.1 L ABG O2 Saturation 100.0 ABG Base Excess -0.3 ABG Sodium 137 139 VBG pH 7.391 VBG pCO2 42.3 VBG pO2 45.3 H VBG HCO3 24.7 VBG Total CO2 23.6 VBG O2 Saturation 81.1 VBG Base Excess 0.7 Hemoglobin 11.9 L 9.7 L D Hematocrit 36.5 L 30.0 L Potassium 3.6 4.2 Glucose 114 H 120 H Ionized Calcium 1.19 L FiO2 80.00 Sodium Chloride Carbon Dioxide Anion Gap BUN Creatinine GFR Calculation BUN/Creatinine Ratio POC Glucose Calculated Osmolality Calcium Venous Ioniz Calcium 1.01 L Magnesium Total Bilirubin AST ALT Alkaline Phosphatase Total Protein Albumin Globulin Albumin/Globulin Ratio Urine Color Straw Urine Appearance Clear Urine pH 6.0 Ur Specific [place] 1.006 Urine Protein Negative Urine Glucose (UA) Negative Urine Ketones Negative Urine Blood Moderate Urine Nitrate Negative Urine Bilirubin Negative Urine Urobilinogen < 2.0 H Urine Leukocytes Negative Urine RBC 2 Ur Squamous Epith Cells Occasional Ur Culture Indicated? Not indicated Blood Type Antibody Screen Crossmatch 09/26/16 09/26/16 09/26/16 09:45 10:20 11:19 WBC RBC Hgb Hct MCV MCH MCHC RDW Plt Count 55 L D MPV Neut % (Auto) Lymph % (Auto) [place] % (Auto) Eos % (Auto) Baso % (Auto) Neut # (Auto) Lymph # (Auto) [place] # (Auto) Eos # (Auto) Baso # (Auto) Immature Gran % Nucleated RBC % Immature Gran # Nucleated RBCs # Platelet Estimate Immature Plt Fraction Hypochromasia [place] Cells Patient Temperature 34 34 ABG pH ABG pH at Pt Temp 7.470 7.481 ABG pCO2 ABG pCO2 at Pt Temp 34.4 33.2 ABG pO2 ABG pO2 at Pt Temp 32.7 34.9 ABG HCO3 ABG Total CO2 ABG O2 Saturation ABG Base Excess ABG Sodium 134 L 134 L VBG pH 7.426 7.436 VBG pCO2 39.7 L 38.4 L VBG pO2 40.4 H 43.0 H VBG HCO3 25.6 25.6 VBG Total CO2 24.0 23.5 VBG O2 Saturation 78.1 80.6 VBG Base Excess 1.7 1.7 Hemoglobin 9.5 L 10.0 L Hematocrit 29.3 L 31.0 L Potassium 4.3 4.2 Glucose 258 H 290 H Ionized Calcium FiO2 80.00 80.00 Sodium Chloride Carbon Dioxide Anion Gap BUN Creatinine GFR Calculation BUN/Creatinine Ratio POC Glucose Calculated Osmolality Calcium Venous Ioniz Calcium 1.04 L 1.05 L Magnesium Total Bilirubin AST ALT Alkaline Phosphatase Total Protein Albumin Globulin Albumin/Globulin Ratio Urine Color Urine Appearance Urine pH Ur Specific [place] Urine Protein Urine Glucose (UA) Urine Ketones Urine Blood Urine Nitrate Urine Bilirubin Urine Urobilinogen Urine Leukocytes Urine RBC Ur Squamous Epith Cells Ur Culture Indicated? Blood Type Antibody Screen Crossmatch 09/26/16 09/26/16 09/26/16 11:19 12:34 12:34 WBC 8.1 D RBC 3.77 L Hgb 10.9 L Hct 31.8 L MCV 84.4 L MCH 29 MCHC 34.3 RDW 14.3 Plt Count 95 L D MPV 9.1 L Neut % (Auto) 84.8 H Lymph % (Auto) 7.8 L [place] % (Auto) 5.7 Eos % (Auto) 0.6 Baso % (Auto) 0.2 Neut # (Auto) 6.9 Lymph # (Auto) 0.6 L [place] # (Auto) 0.5 Eos # (Auto) 0.1 Baso # (Auto) 0.0 Immature Gran % 0.9 Nucleated RBC % 0.0 Immature Gran # 0.07 Nucleated RBCs # 0.00 Platelet Estimate Decreased Immature Plt Fraction 1.0 Hypochromasia Slight [place] Cells 2+ Patient Temperature 37 ABG pH 7.394 ABG pH at Pt Temp 7.394 ABG pCO2 39.6 ABG pCO2 at Pt Temp 39.6 ABG pO2 217.0 H ABG pO2 at Pt Temp 217.0 ABG HCO3 24.0 ABG Total CO2 22.0 L ABG O2 Saturation 100.0 ABG Base Excess -0.5 ABG Sodium 136 VBG pH VBG pCO2 VBG pO2 VBG HCO3 VBG Total CO2 VBG O2 Saturation VBG Base Excess Hemoglobin 10.0 L Hematocrit 31.0 L Potassium 4.0 3.9 Glucose 223 H 174 H Ionized Calcium 1.27 FiO2 Sodium 142 Chloride 109 H Carbon Dioxide 25 Anion Gap 11.9 BUN 10 Creatinine 0.90 GFR Calculation 93 BUN/Creatinine Ratio 11.00 POC Glucose Calculated Osmolality 285.1 Calcium 7.8 L Venous Ioniz Calcium Magnesium 2.2 Total Bilirubin 1.30 H AST 39 H ALT 13 L Alkaline Phosphatase 43 L Total Protein 4.3 L Albumin 2.4 L Globulin 1.9 L Albumin/Globulin Ratio 1.2 Urine Color Urine Appearance Urine pH Ur Specific [place] Urine Protein Urine Glucose (UA) Urine Ketones Urine Blood Urine Nitrate Urine Bilirubin Urine Urobilinogen Urine Leukocytes Urine RBC Ur Squamous Epith Cells Ur Culture Indicated? Blood Type Antibody Screen Crossmatch 09/26/16 12:34 WBC RBC Hgb Hct MCV MCH MCHC RDW Plt Count MPV Neut % (Auto) Lymph % (Auto) [place] % (Auto) Eos % (Auto) Baso % (Auto) Neut # (Auto) Lymph # (Auto) [place] # (Auto) Eos # (Auto) Baso # (Auto) Immature Gran % Nucleated RBC % Immature Gran # Nucleated RBCs # Platelet Estimate Immature Plt Fraction Hypochromasia [place] Cells Patient Temperature ABG pH 7.438 ABG pH at Pt Temp ABG pCO2 35.9 ABG pCO2 at Pt Temp ABG pO2 131.0 H ABG pO2 at Pt Temp ABG HCO3 24.8 ABG Total CO2 21.8 L ABG O2 Saturation 99.0 ABG Base Excess 0.4 ABG Sodium VBG pH VBG pCO2 VBG pO2 VBG HCO3 VBG Total CO2 VBG O2 Saturation VBG Base Excess Hemoglobin 10.8 L Hematocrit 33.4 L Potassium 3.8 Glucose 178 H Ionized Calcium FiO2 Sodium Chloride Carbon Dioxide Anion Gap BUN Creatinine GFR Calculation BUN/Creatinine Ratio POC Glucose Calculated Osmolality Calcium Venous Ioniz Calcium Magnesium Total Bilirubin AST ALT Alkaline Phosphatase Total Protein Albumin Globulin Albumin/Globulin Ratio Urine Color Urine Appearance Urine pH Ur Specific [place] Urine Protein Urine Glucose (UA) Urine Ketones Urine Blood Urine Nitrate Urine Bilirubin Urine Urobilinogen Urine Leukocytes Urine RBC Ur Squamous Epith Cells Ur Culture Indicated? Blood Type Antibody Screen Crossmatch - Diagnostic Findings Procedure: Chest x-ray: image reviewed by me, report reviewed by me - EKG EKG results: interpreted by me, no acute changes EKG shows: sinus rhythm Quality Measures - VTE Contraindication to Pharmacological VTE Prophylaxis: High Risk of Bleeding Varun Coreas Jennifer, MD, personally performed the services described in this documentation, ascribed by Maggie Caruso RN in my presence, and it is both accurate and complete 529 .
[2016-09-26 15:58] LABS: ABG Base Excess 0.5 MMOL/L (-2.5-2.5); ABG HCO3 24.9 MMOL/L (20-26); ABG Oxygen Saturation 99.2 % (95-100); ABG PCO2 32.1 MM HG (35-48); ABG PH 7.475 (7.35-7.45); ABG TCO2 21.4 MMOL/L (23-27); Glucose Heart Surgery 139 MG/DL (74-106); Hematocrit Heart Surgery 30.1 PERCENT (42-52); Hemoglobin Heart Surgery 9.7 G/DL (14.0-18.0); Potassium Heart/CVR 4.2 MMOL/L (3.5-5.1)
[2016-09-26] MEDS: MORPHINE 2 MG/1 ML SYRINGE IV PRN ×2 (16:20→20:38)
[2016-09-26 17:59] LABS: ABG Base Excess -0.2 MMOL/L (-2.5-2.5); ABG HCO3 24.3 MMOL/L (20-26); ABG Oxygen Saturation 98.6 % (95-100); ABG PH 7.437 (7.35-7.45); ABG PO2 93.2 MM HG (80-95); ABG TCO2 21.7 MMOL/L (23-27); Glucose Heart Surgery 151 MG/DL (74-106); Potassium Heart/CVR 4.3 MMOL/L (3.5-5.1)
[2016-09-26] MEDS ORDERED: AMIODARONE INJ 50 MG in DEXTROSE 5% 100 ML IV ONE (18:28)
[2016-09-26] MEDS ORDERED: FUROSEMIDE 40 MG/4 ML VIAL IM PRN (18:28)
[2016-09-26] MEDS ORDERED: AMIODARONE INJ 450 MG in DEXTROSE 5% 241 ML IV SCH (18:30)
[2016-09-26] MEDS ORDERED: DILTIAZEM INJ 100 MG in SODIUM CHLORIDE 0.9% 100 ML IV SCH (20:00)
[2016-09-26] MEDS ORDERED: DILTIAZEM 50 MG/10 ML VIAL IV ONE (20:00)
[2016-09-26] MEDS ORDERED: DILTIAZEM 100 MG VIAL.ADD IV ONE (20:01)
[2016-09-26] MEDS ORDERED: SODIUM CHLORIDE 0.9% 100 ML IV ONE (20:02)
[2016-09-26] MEDS: CEFUROXIME INJ 1,500 MG in SODIUM CHLORIDE 0.9% 100 ML IV SCH (20:43)
[2016-09-26 21:04] LABS: ABG Base Excess -2.6 MMOL/L (-2.5-2.5); ABG HCO3 22.3 MMOL/L (20-26); ABG Oxygen Saturation 98.9 % (95-100); ABG PCO2 34.9 MM HG (35-48); ABG PH 7.402 (7.35-7.45); ABG TCO2 19.9 MMOL/L (23-27); Glucose Heart Surgery 163 MG/DL (74-106); Hematocrit Heart Surgery 29.2 PERCENT (42-52); Hemoglobin Heart Surgery 9.4 G/DL (14.0-18.0)
[2016-09-26 21:36] LABS: CKMB % 9.1 %
[2016-09-26 21:41] LABS: Troponin I Only 6.94 NG/ML (0.00-0.045)
[2016-09-26] MEDS: ONDANSETRON 4 MG/2 ML VIAL IV PRN (22:48)
[2016-09-26 23:59] LABS: Hemoglobin Heart Surgery 9.7 G/DL (14.0-18.0); PCO2 Patient Temp Venous 36.6 MM HG; PH Patient Temp Venous 7.407; PO2 Patient Temp Venous 37.4 MM HG; Potassium Heart/CVR 4.2 MMOL/L (3.5-5.1); VBG Base Excess -1.3 MEQ/L (0-4); VBG HCO3 22.9 MEQ/L (24-28); VBG PCO2 36.6 MMHG (41-51); VBG PH 7.407; VBG PO2 37.4 MMHG (17-40)
[2016-09-27] MEDS ORDERED: FUROSEMIDE 40 MG/4 ML VIAL IV ONE (00:15)
[2016-09-27] MEDS: POTASSIUM CHLORIDE RIDER 20 MEQ in PREMIX 1 EACH IV PRN ×2 (00:15→01:35)
[2016-09-27 01:19] LABS: ABG Base Excess -2.1 MMOL/L (-2.5-2.5); ABG HCO3 22.7 MMOL/L (20-26); ABG Oxygen Saturation 98.1 % (95-100); ABG PCO2 32.3 MM HG (35-48); ABG PH 7.431 (7.35-7.45); ABG PO2 93.8 MM HG (80-95); ABG TCO2 19.4 MMOL/L (23-27); Glucose Heart Surgery 162 MG/DL (74-106); Hematocrit Heart Surgery 32.6 PERCENT (42-52); Hemoglobin Heart Surgery 10.5 G/DL (14.0-18.0); Potassium Heart/CVR 4.4 MMOL/L (3.5-5.1)
[2016-09-27] MEDS: KETOROLAC 30 MG/1 ML VIAL IV SCH ×5 (01:30→21:19)
[2016-09-27] MEDS: ONDANSETRON 4 MG/2 ML VIAL IV PRN (01:33)
[2016-09-27 02:39] LABS: ABG HCO3 22.8 MMOL/L (20-26); ABG PCO2 33.2 MM HG (35-48); ABG PH 7.424 (7.35-7.45); ABG TCO2 19.7 MMOL/L (23-27); Glucose Heart Surgery 162 MG/DL (74-106); Hematocrit Heart Surgery 31.7 PERCENT (42-52); Hemoglobin Heart Surgery 10.3 G/DL (14.0-18.0); Potassium Heart/CVR 4.7 MMOL/L (3.5-5.1)
[2016-09-27 02:51] LABS: ABG Base Excess -1.7 MMOL/L (-2.5-2.5); ABG Oxygen Saturation 99.2 % (95-100); ABG PCO2 35.5 MM HG (35-48); ABG PH 7.409 (7.35-7.45); ABG TCO2 20.3 MMOL/L (23-27); Glucose Heart Surgery 163 MG/DL (74-106); Hematocrit Heart Surgery 31.6 PERCENT (42-52); Hemoglobin Heart Surgery 10.2 G/DL (14.0-18.0); Potassium Heart/CVR 4.6 MMOL/L (3.5-5.1)
[2016-09-27] MEDS ORDERED: AMIODARONE 450 MG/9 ML VIAL IV ONE (03:00)
[2016-09-27] MEDS ORDERED: AMIODARONE INJ 450 MG in DEXTROSE 5% 241 ML IV SCH (03:45)
[2016-09-27 04:13] LABS: ABG Base Excess -2.1 MMOL/L (-2.5-2.5); ABG HCO3 22.7 MMOL/L (20-26); ABG Oxygen Saturation 98.7 % (95-100); ABG PCO2 36.7 MM HG (35-48); ABG PH 7.393 (7.35-7.45); ABG TCO2 20.3 MMOL/L (23-27); Basophils % 0.1 % (0.0-0.8); Glucose Heart Surgery 150 MG/DL (74-106); Hematocrit 30.7 VOL% (42.0-52.0); Hematocrit Heart Surgery 32.2 PERCENT (42-52); Hemoglobin 10.5 GM/DL (14.0-18.0); Hemoglobin Heart Surgery 10.4 G/DL (14.0-18.0); Immature Granulocytes % 0.4 %; Immature Granulocytes Absolute 0.05 #; Lymphocytes # 0.5 10*3/uL (1.4-4.0); Lymphocytes % 3.9 % (21.2-54.2); Mean Corpuscular HGB Conc 34.2 GM/DL (32-36); Mean Corpuscular Hemoglobin 29 PG (27-34); Mean Corpuscular Volume 84.3 FL (87-102); Mean Platelet Volume 9.4 FL (9.6-12.0); Monocytes # 0.6 10*3/uL (0.11-0.8); Monocytes % 4.5 % (1.7-12.7); Neutrophils # 12.2 10*3/uL (1.4-7.4); Neutrophils % 91.1 % (38.7-73.9); Platelet Count 102 T/CUMM (130-400); Potassium Heart/CVR 4.3 MMOL/L (3.5-5.1); Red Blood Count 3.64 MC/CUMM (3.8-5.5); Red Cell Distribution Width 14.1 % (9.3-17.3); White Blood Count 13.4 T/CUMM (4-12)
[2016-09-27 04:40] LABS: Albumin 3.7 G/DL (3.4-5.0); Bilirubin,Direct 0.3 MG/DL (0.0-0.20); Bilirubin,Total 0.9 MG/DL (0.2-1.0); Calcium 8.3 MG/DL (8.5-10.1); Osmolality,Calculated 284.1 MOS/KG (273-304); Potassium 4.4 MMOL/L (3.5-5.1); Total Protein 5.1 G/DL (6.4-8.3)
[2016-09-27 04:45] LABS: CKMB % 8.1 %
[2016-09-27 04:49] LABS: Troponin I Only 6.64 NG/ML (0.00-0.045)
[2016-09-27 04:53] LABS: Band Neutrophils 1 % (0-10); Lymphocytes 6 % (20-55); Segmented Neutrophils 90 % (50-85); Total Cells Counted 100
[2016-09-27 04:54] LABS: Acanthocytes Few; Microcytosis Slight; Ovalocytes Slight
[2016-09-27 04:55] LABS: Platelet Estimate Decreased
--- NOTE | 2016-09-27 06:23 | Cardiothoracic Progress Note ---
Cardiothoracic Subjective Interval history: Patient is awake alert and extubated. He had a fairly comfortable night and was extubated about 3:00 this morning. Vital signs have been stable although he did have a brief run of atrial fibrillation last night controlled with amiodarone and Cardizem. He remains on IV Cardizem now. He is in sinus rhythm. Cardiac output is greater than 6 L/min and cardiac enzymes are within normal limits for postoperative day #1. Arterial blood gases are satisfactory postextubation and urine output has been good with a creatinine in the normal range. Chest tube drainage is minimal at this point and his chest tubes are discontinued. We will switch him to oral amiodarone and restart some of his home medicines but I think that he can be transferred to telemetry later this morning. Exam (Progress Note) - Constitutional Vitals: Period Temp Pulse Resp BP Sys/Lea Pulse Ox Last 24 Hr 96.9 F-98.7 F 80-132 10-81 87-156/44-85 98-100 Result/EKG - Labs CBC & BMP: 09/27/16 04:00 09/27/16 04:00 Labs: Laboratory Results - last 24 hr 09/25/16 09/26/16 09/26/16 03:25 07:31 07:31 WBC RBC Hgb Hct MCV MCH MCHC RDW Plt Count 79 L D MPV Neut % (Auto) Lymph % (Auto) [place] % (Auto) Eos % (Auto) Baso % (Auto) Neut # (Auto) Lymph # (Auto) [place] # (Auto) Eos # (Auto) Baso # (Auto) Total Counted Immature Gran % Nucleated RBC % Immature Gran # Segmented Neutrophils Band Neutrophils Lymphocytes Monocytes Nucleated RBCs # Platelet Estimate Immature Plt Fraction Hypochromasia Microcytosis Ovalocytes [place] Cells Acanthocytes (Spur) INR PT Patient/Control Mix Circ Anticoag PTT Patient Temperature 37 ABG pH 7.418 ABG pH at Pt Temp 7.418 ABG pCO2 36.9 ABG pCO2 at Pt Temp 36.9 ABG pO2 342.0 H ABG pO2 at Pt Temp 342.0 ABG HCO3 24.2 ABG Total CO2 21.1 L ABG O2 Saturation 100.0 ABG Base Excess -0.3 ABG Sodium 137 VBG pH VBG pCO2 VBG pO2 VBG HCO3 VBG Total CO2 VBG O2 Saturation VBG Base Excess Hemoglobin 11.9 L Hematocrit 36.5 L Potassium 3.6 Glucose 114 H Ionized Calcium 1.19 L FiO2 Sodium Chloride Carbon Dioxide Anion Gap BUN Creatinine GFR Calculation BUN/Creatinine Ratio Calculated Osmolality Calcium Venous Ioniz Calcium Magnesium Total Bilirubin Direct Bilirubin AST ALT Alkaline Phosphatase Total Creatine Kinase CK-MB (CK-2) CK and CKMB Interp Troponin I Total Protein Albumin Globulin Albumin/Globulin Ratio Urine Color Urine Appearance Urine pH Ur Specific [place] Urine Protein Urine Glucose (UA) Urine Ketones Urine Blood Urine Nitrate Urine Bilirubin Urine Urobilinogen Urine Leukocytes Urine RBC Ur Squamous Epith Cells Ur Culture Indicated? Blood Type AB NEGATIVE Antibody Screen Negative Crossmatch See Detail 09/26/16 09/26/16 09/26/16 07:37 09:20 09:45 WBC RBC Hgb Hct MCV MCH MCHC RDW Plt Count MPV Neut % (Auto) Lymph % (Auto) [place] % (Auto) Eos % (Auto) Baso % (Auto) Neut # (Auto) Lymph # (Auto) [place] # (Auto) Eos # (Auto) Baso # (Auto) Total Counted Immature Gran % Nucleated RBC % Immature Gran # Segmented Neutrophils Band Neutrophils Lymphocytes Monocytes Nucleated RBCs # Platelet Estimate Immature Plt Fraction Hypochromasia Microcytosis Ovalocytes [place] Cells Acanthocytes (Spur) INR PT Patient/Control Mix Circ Anticoag PTT Patient Temperature 34 34 ABG pH ABG pH at Pt Temp 7.435 7.470 ABG pCO2 ABG pCO2 at Pt Temp 36.6 34.4 ABG pO2 ABG pO2 at Pt Temp 36.8 32.7 ABG HCO3 ABG Total CO2 ABG O2 Saturation ABG Base Excess ABG Sodium 139 134 L VBG pH 7.391 7.426 VBG pCO2 42.3 39.7 L VBG pO2 45.3 H 40.4 H VBG HCO3 24.7 25.6 VBG Total CO2 23.6 24.0 VBG O2 Saturation 81.1 78.1 VBG Base Excess 0.7 1.7 Hemoglobin 9.7 L D 9.5 L Hematocrit 30.0 L 29.3 L Potassium 4.2 4.3 Glucose 120 H 258 H Ionized Calcium FiO2 80.00 80.00 Sodium Chloride Carbon Dioxide Anion Gap BUN Creatinine GFR Calculation BUN/Creatinine Ratio Calculated Osmolality Calcium Venous Ioniz Calcium 1.01 L 1.04 L Magnesium Total Bilirubin Direct Bilirubin AST ALT Alkaline Phosphatase Total Creatine Kinase CK-MB (CK-2) CK and CKMB Interp Troponin I Total Protein Albumin Globulin Albumin/Globulin Ratio Urine Color Straw Urine Appearance Clear Urine pH 6.0 Ur Specific [place] 1.006 Urine Protein Negative Urine Glucose (UA) Negative Urine Ketones Negative Urine Blood Moderate Urine Nitrate Negative Urine Bilirubin Negative Urine Urobilinogen < 2.0 H Urine Leukocytes Negative Urine RBC 2 Ur Squamous Epith Cells Occasional Ur Culture Indicated? Not indicated Blood Type Antibody Screen Crossmatch 09/26/16 09/26/16 09/26/16 10:20 11:19 11:19 WBC RBC Hgb Hct MCV MCH MCHC RDW Plt Count 55 L D MPV Neut % (Auto) Lymph % (Auto) [place] % (Auto) Eos % (Auto) Baso % (Auto) Neut # (Auto) Lymph # (Auto) [place] # (Auto) Eos # (Auto) Baso # (Auto) Total Counted Immature Gran % Nucleated RBC % Immature Gran # Segmented Neutrophils Band Neutrophils Lymphocytes Monocytes Nucleated RBCs # Platelet Estimate Immature Plt Fraction Hypochromasia Microcytosis Ovalocytes [place] Cells Acanthocytes (Spur) INR PT Patient/Control Mix Circ Anticoag PTT Patient Temperature 34 37 ABG pH 7.394 ABG pH at Pt Temp 7.481 7.394 ABG pCO2 39.6 ABG pCO2 at Pt Temp 33.2 39.6 ABG pO2 217.0 H ABG pO2 at Pt Temp 34.9 217.0 ABG HCO3 24.0 ABG Total CO2 22.0 L ABG O2 Saturation 100.0 ABG Base Excess -0.5 ABG Sodium 134 L 136 VBG pH 7.436 VBG pCO2 38.4 L VBG pO2 43.0 H VBG HCO3 25.6 VBG Total CO2 23.5 VBG O2 Saturation 80.6 VBG Base Excess 1.7 Hemoglobin 10.0 L 10.0 L Hematocrit 31.0 L 31.0 L Potassium 4.2 4.0 Glucose 290 H 223 H Ionized Calcium 1.27 FiO2 80.00 Sodium Chloride Carbon Dioxide Anion Gap BUN Creatinine GFR Calculation BUN/Creatinine Ratio Calculated Osmolality Calcium Venous Ioniz Calcium 1.05 L Magnesium Total Bilirubin Direct Bilirubin AST ALT Alkaline Phosphatase Total Creatine Kinase CK-MB (CK-2) CK and CKMB Interp Troponin I Total Protein Albumin Globulin Albumin/Globulin Ratio Urine Color Urine Appearance Urine pH Ur Specific [place] Urine Protein Urine Glucose (UA) Urine Ketones Urine Blood Urine Nitrate Urine Bilirubin Urine Urobilinogen Urine Leukocytes Urine RBC Ur Squamous Epith Cells Ur Culture Indicated? Blood Type Antibody Screen Crossmatch 09/26/16 09/26/16 09/26/16 12:34 12:34 12:34 WBC 8.1 D RBC 3.77 L Hgb 10.9 L Hct 31.8 L MCV 84.4 L MCH 29 MCHC 34.3 RDW 14.3 Plt Count 95 L D MPV 9.1 L Neut % (Auto) 84.8 H Lymph % (Auto) 7.8 L [place] % (Auto) 5.7 Eos % (Auto) 0.6 Baso % (Auto) 0.2 Neut # (Auto) 6.9 Lymph # (Auto) 0.6 L [place] # (Auto) 0.5 Eos # (Auto) 0.1 Baso # (Auto) 0.0 Total Counted Immature Gran % 0.9 Nucleated RBC % 0.0 Immature Gran # 0.07 Segmented Neutrophils Band Neutrophils Lymphocytes Monocytes Nucleated RBCs # 0.00 Platelet Estimate Decreased Immature Plt Fraction 1.0 Hypochromasia Slight Microcytosis Ovalocytes Joni Cells 2+ Acanthocytes (Spur) INR PT Patient/Control Mix Circ Anticoag PTT Patient Temperature ABG pH 7.438 ABG pH at Pt Temp ABG pCO2 35.9 ABG pCO2 at Pt Temp ABG pO2 131.0 H ABG pO2 at Pt Temp ABG HCO3 24.8 ABG Total CO2 21.8 L ABG O2 Saturation 99.0 ABG Base Excess 0.4 ABG Sodium VBG pH VBG pCO2 VBG pO2 VBG HCO3 VBG Total CO2 VBG O2 Saturation VBG Base Excess Hemoglobin 10.8 L Hematocrit 33.4 L Potassium 3.9 3.8 Glucose 174 H 178 H Ionized Calcium FiO2 Sodium 142 Chloride 109 H Carbon Dioxide 25 Anion Gap 11.9 BUN 10 Creatinine 0.90 GFR Calculation 93 BUN/Creatinine Ratio 11.00 Calculated Osmolality 285.1 Calcium 7.8 L Venous Ioniz Calcium Magnesium 2.2 Total Bilirubin 1.30 H Direct Bilirubin AST 39 H ALT 13 L Alkaline Phosphatase 43 L Total Creatine Kinase CK-MB (CK-2) CK and CKMB Interp Troponin I Total Protein 4.3 L Albumin 2.4 L Globulin 1.9 L Albumin/Globulin Ratio 1.2 Urine Color Urine Appearance Urine pH Ur Specific [place] Urine Protein Urine Glucose (UA) Urine Ketones Urine Blood Urine Nitrate Urine Bilirubin Urine Urobilinogen Urine Leukocytes Urine RBC Ur Squamous Epith Cells Ur Culture Indicated? Blood Type Antibody Screen Crossmatch 09/26/16 09/26/16 09/26/16 12:34 14:07 14:18 WBC RBC Hgb Hct MCV MCH MCHC RDW Plt Count MPV Neut % (Auto) Lymph % (Auto) [place] % (Auto) Eos % (Auto) Baso % (Auto) Neut # (Auto) Lymph # (Auto) [place] # (Auto) Eos # (Auto) Baso # (Auto) Total Counted Immature Gran % Nucleated RBC % Immature Gran # Segmented Neutrophils Band Neutrophils Lymphocytes Monocytes Nucleated RBCs # Platelet Estimate Immature Plt Fraction Hypochromasia Microcytosis Ovalocytes Joni Cells Acanthocytes (Spur) INR 1.2 PT Patient/Control Mix 13.1 Circ Anticoag PTT 29.5 Patient Temperature ABG pH 7.477 H ABG pH at Pt Temp ABG pCO2 32.7 L ABG pCO2 at Pt Temp ABG pO2 197.0 H ABG pO2 at Pt Temp ABG HCO3 25.5 ABG Total CO2 21.5 L ABG O2 Saturation 99.7 ABG Base Excess 1.2 ABG Sodium VBG pH VBG pCO2 VBG pO2 VBG HCO3 VBG Total CO2 VBG O2 Saturation VBG Base Excess Hemoglobin 11.2 L Hematocrit 34.7 L Potassium 4.7 Glucose 153 H Ionized Calcium FiO2 Sodium Chloride Carbon Dioxide Anion Gap BUN Creatinine GFR Calculation BUN/Creatinine Ratio Calculated Osmolality Calcium Venous Ioniz Calcium Magnesium Total Bilirubin Direct Bilirubin AST ALT Alkaline Phosphatase Total Creatine Kinase 287 CK-MB (CK-2) 32.4 H CK and CKMB Interp 11.3 Troponin I 5.050 H Total Protein Albumin Globulin Albumin/Globulin Ratio Urine Color Urine Appearance Urine pH Ur Specific [place] Urine Protein Urine Glucose (UA) Urine Ketones Urine Blood Urine Nitrate Urine Bilirubin Urine Urobilinogen Urine Leukocytes Urine RBC Ur Squamous Epith Cells Ur Culture Indicated? Blood Type Antibody Screen Crossmatch 09/26/16 09/26/16 09/26/16 15:50 17:51 20:50 WBC RBC Hgb Hct MCV MCH MCHC RDW Plt Count MPV Neut % (Auto) Lymph % (Auto) [place] % (Auto) Eos % (Auto) Baso % (Auto) Neut # (Auto) Lymph # (Auto) [place] # (Auto) Eos # (Auto) Baso # (Auto) Total Counted Immature Gran % Nucleated RBC % Immature Gran # Segmented Neutrophils Band Neutrophils Lymphocytes Monocytes Nucleated RBCs # Platelet Estimate Immature Plt Fraction Hypochromasia Microcytosis Ovalocytes [place] Cells Acanthocytes (Spur) INR PT Patient/Control Mix Circ Anticoag PTT Patient Temperature ABG pH 7.475 H 7.437 ABG pH at Pt Temp ABG pCO2 32.1 L 35.0 ABG pCO2 at Pt Temp ABG pO2 134.0 H 93.2 ABG pO2 at Pt Temp ABG HCO3 24.9 24.3 ABG Total CO2 21.4 L 21.7 L ABG O2 Saturation 99.2 98.6 ABG Base Excess 0.5 -0.2 ABG Sodium VBG pH VBG pCO2 VBG pO2 VBG HCO3 VBG Total CO2 VBG O2 Saturation VBG Base Excess Hemoglobin 9.7 L 9.0 L Hematocrit 30.1 L 28.0 L Potassium 4.2 4.3 Glucose 139 H 151 H Ionized Calcium FiO2 Sodium Chloride Carbon Dioxide Anion Gap BUN Creatinine GFR Calculation BUN/Creatinine Ratio Calculated Osmolality Calcium Venous Ioniz Calcium Magnesium Total Bilirubin Direct Bilirubin AST ALT Alkaline Phosphatase Total Creatine Kinase 344 H CK-MB (CK-2) 31.2 H CK and CKMB Interp 9.1 Troponin I 6.940 H D Total Protein Albumin Globulin Albumin/Globulin Ratio Urine Color Urine Appearance Urine pH Ur Specific [place] Urine Protein Urine Glucose (UA) Urine Ketones Urine Blood Urine Nitrate Urine Bilirubin Urine Urobilinogen Urine Leukocytes Urine RBC Ur Squamous Epith Cells Ur Culture Indicated? Blood Type Antibody Screen Crossmatch 09/26/16 09/26/16 09/27/16 20:50 23:55 01:15 WBC RBC Hgb Hct MCV MCH MCHC RDW Plt Count MPV Neut % (Auto) Lymph % (Auto) [place] % (Auto) Eos % (Auto) Baso % (Auto) Neut # (Auto) Lymph # (Auto) [place] # (Auto) Eos # (Auto) Baso # (Auto) Total Counted Immature Gran % Nucleated RBC % Immature Gran # Segmented Neutrophils Band Neutrophils Lymphocytes Monocytes Nucleated RBCs # Platelet Estimate Immature Plt Fraction Hypochromasia Microcytosis Ovalocytes [place] Cells Acanthocytes (Spur) INR PT Patient/Control Mix Circ Anticoag PTT Patient Temperature 37 ABG pH 7.402 7.431 ABG pH at Pt Temp 7.407 ABG pCO2 34.9 L 32.3 L ABG pCO2 at Pt Temp 36.6 ABG pO2 104.0 H 93.8 ABG pO2 at Pt Temp 37.4 ABG HCO3 22.3 22.7 ABG Total CO2 19.9 L 19.4 L ABG O2 Saturation 98.9 98.1 ABG Base Excess -2.6 L -2.1 ABG Sodium 140 VBG pH 7.407 VBG pCO2 36.6 L VBG pO2 37.4 VBG HCO3 22.9 L VBG Total CO2 21.1 VBG O2 Saturation 73.0 VBG Base Excess -1.3 L Hemoglobin 9.4 L 9.7 L 10.5 L Hematocrit 29.2 L 30.0 L 32.6 L Potassium 4.0 4.2 4.4 Glucose 163 H 160 H 162 H Ionized Calcium FiO2 21.00 Sodium Chloride Carbon Dioxide Anion Gap BUN Creatinine GFR Calculation BUN/Creatinine Ratio Calculated Osmolality Calcium Venous Ioniz Calcium 1.17 L Magnesium Total Bilirubin Direct Bilirubin AST ALT Alkaline Phosphatase Total Creatine Kinase CK-MB (CK-2) CK and CKMB Interp Troponin I Total Protein Albumin Globulin Albumin/Globulin Ratio Urine Color Urine Appearance Urine pH Ur Specific [place] Urine Protein Urine Glucose (UA) Urine Ketones Urine Blood Urine Nitrate Urine Bilirubin Urine Urobilinogen Urine Leukocytes Urine RBC Ur Squamous Epith Cells Ur Culture Indicated? Blood Type Antibody Screen Crossmatch 09/27/16 09/27/16 09/27/16 02:15 02:45 04:00 WBC 13.4 H D RBC 3.64 L Hgb 10.5 L Hct 30.7 L MCV 84.3 L MCH 29 MCHC 34.2 RDW 14.1 Plt Count 102 L MPV 9.4 L Neut % (Auto) 91.1 H Lymph % (Auto) 3.9 L [place] % (Auto) 4.5 Eos % (Auto) 0.0 Baso % (Auto) 0.1 Neut # (Auto) 12.2 H Lymph # (Auto) 0.5 L [place] # (Auto) 0.6 Eos # (Auto) 0.0 Baso # (Auto) 0.0 Total Counted 100 Immature Gran % 0.4 Nucleated RBC % 0.0 Immature Gran # 0.05 Segmented Neutrophils 90 H Band Neutrophils 1 Lymphocytes 6 L Monocytes 3 Nucleated RBCs # 0.00 Platelet Estimate Decreased Immature Plt Fraction 0.0 Hypochromasia Microcytosis Slight Ovalocytes Slight [place] Cells Acanthocytes (Spur) Few INR PT Patient/Control Mix Circ Anticoag PTT Patient Temperature ABG pH 7.424 7.409 ABG pH at Pt Temp ABG pCO2 33.2 L 35.5 ABG pCO2 at Pt Temp ABG pO2 117.0 H 128.0 H ABG pO2 at Pt Temp ABG HCO3 22.8 23.0 ABG Total CO2 19.7 L 20.3 L ABG O2 Saturation 99.0 99.2 ABG Base Excess -2.0 -1.7 ABG Sodium VBG pH VBG pCO2 VBG pO2 VBG HCO3 VBG Total CO2 VBG O2 Saturation VBG Base Excess Hemoglobin 10.3 L 10.2 L Hematocrit 31.7 L 31.6 L Potassium 4.7 4.6 Glucose 162 H 163 H Ionized Calcium FiO2 Sodium Chloride Carbon Dioxide Anion Gap BUN Creatinine GFR Calculation BUN/Creatinine Ratio Calculated Osmolality Calcium Venous Ioniz Calcium Magnesium Total Bilirubin Direct Bilirubin AST ALT Alkaline Phosphatase Total Creatine Kinase CK-MB (CK-2) CK and CKMB Interp Troponin I Total Protein Albumin Globulin Albumin/Globulin Ratio Urine Color Urine Appearance Urine pH Ur Specific [place] Urine Protein Urine Glucose (UA) Urine Ketones Urine Blood Urine Nitrate Urine Bilirubin Urine Urobilinogen Urine Leukocytes Urine RBC Ur Squamous Epith Cells Ur Culture Indicated? Blood Type Antibody Screen Crossmatch 09/27/16 09/27/16 09/27/16 04:00 04:00 04:00 WBC RBC Hgb Hct MCV MCH MCHC RDW Plt Count MPV Neut % (Auto) Lymph % (Auto) [place] % (Auto) Eos % (Auto) Baso % (Auto) Neut # (Auto) Lymph # (Auto) [place] # (Auto) Eos # (Auto) Baso # (Auto) Total Counted Immature Gran % Nucleated RBC % Immature Gran # Segmented Neutrophils Band Neutrophils Lymphocytes Monocytes Nucleated RBCs # Platelet Estimate Immature Plt Fraction Hypochromasia Microcytosis Ovalocytes Joni Cells Acanthocytes (Spur) INR PT Patient/Control Mix Circ Anticoag PTT Patient Temperature ABG pH 7.393 ABG pH at Pt Temp ABG pCO2 36.7 ABG pCO2 at Pt Temp ABG pO2 112.0 H ABG pO2 at Pt Temp ABG HCO3 22.7 ABG Total CO2 20.3 L ABG O2 Saturation 98.7 ABG Base Excess -2.1 ABG Sodium VBG pH VBG pCO2 VBG pO2 VBG HCO3 VBG Total CO2 VBG O2 Saturation VBG Base Excess Hemoglobin 10.4 L Hematocrit 32.2 L Potassium 4.4 4.3 Glucose 140 H 150 H Ionized Calcium FiO2 Sodium 142 Chloride 111 H Carbon Dioxide 24 Anion Gap 11.4 BUN 13 Creatinine 1.10 GFR Calculation 75 BUN/Creatinine Ratio 11.00 Calculated Osmolality 284.1 Calcium 8.3 L Venous Ioniz Calcium Magnesium 2.0 Total Bilirubin 0.90 Direct Bilirubin 0.30 H AST 48 H ALT 16 Alkaline Phosphatase 34 L Total Creatine Kinase 389 H CK-MB (CK-2) 31.7 H CK and CKMB Interp 8.1 Troponin I 6.640 H Total Protein 5.1 L Albumin 3.7 Globulin 1.4 L Albumin/Globulin Ratio 2.6 H Urine Color Urine Appearance Urine pH Ur Specific [place] Urine Protein Urine Glucose (UA) Urine Ketones Urine Blood Urine Nitrate Urine Bilirubin Urine Urobilinogen Urine Leukocytes Urine RBC Ur Squamous Epith Cells Ur Culture Indicated? Blood Type Antibody Screen Crossmatch Quality Measures - VTE Contraindication to Pharmacological VTE Prophylaxis: High Risk of Bleeding
[2016-09-27] MEDS ORDERED: ALBUTEROL 2.5 MG/3 ML NEB RESP TX PRN (06:25)
[2016-09-27] MEDS: CEFUROXIME INJ 1,500 MG in SODIUM CHLORIDE 0.9% 100 ML IV SCH (07:05)
--- NOTE | 2016-09-27 07:40 | EKG Report ---
Stationary ECG Study [facility] Test Date: 09/27/2016 7:38:28 AM Pat Name: JUAN BAKER Department: Room: 104 Gender: M Subscription Crew Leader: MCKENZIE : [id number] Requested by: Margarito Zepeda Order Number: [id number] Scotty MD: ERIK OLIVARES Intervals [place] Rate: 80 P: -77 IA: 201 QRS: 222 QRSD: 142 T: 102 QT: 413 QTc: 449 Interpretive Statements ELECTRONIC ATRIAL PACEMAKER INDETERMINATE AXIS RIGHT BUNDLE BRANCH BLOCK Electronically Signed On 09-30-16 18:31:34 CDT by ERIK OLIVARES [email or web address]
--- NOTE | 2016-09-27 07:51 | XRay Report ---
XR chest 1V portable Indication: Chest tube removal Comparison: Chest x-ray dated September 26, 2016 at 2:12 PM Technique: Single frontal view of the chest. Findings: Interval removal [place] catheter and bilateral chest tubes. Heart is stable status post sternotomy. Right-sided central venous catheter tip projects over the distal SVC. Continued elevation of the right hemidiaphragm. No pneumothorax. Visualized osseous and surrounding soft tissue structures appear grossly unchanged. IMPRESSION: No adverse interval change. PROCEDURE INTERPRETED AT [facility] DEPARTMENT OF RADIOLOGY Final Report Signed by: Dr Feliciano Dickinson
[2016-09-27] MEDS: LISINOPRIL/HCTZ 20-12.5 MG TABLET PO SCH (08:00)
[2016-09-27] MEDS: CHLORHEXIDINE 0.12% ORAL RINSE 60 ML BOTTLE SWISH/SPIT SCH ×3 (08:00→21:19)
[2016-09-27] MEDS: AMIODARONE 200 MG TABLET PO SCH (08:00)
[2016-09-27] MEDS ORDERED: MAGNESIUM SULF RIDER 2 GM in PREMIX 1 EACH IV PRN (08:25)
[2016-09-27] MEDS ORDERED: MORPHINE 2 MG/1 ML SYRINGE IV PRN (08:25)
[2016-09-27] MEDS ORDERED: ACETAMINOPHEN 325 MG TABLET PO PRN (08:25)
[2016-09-27] MEDS ORDERED: oxyCODONE/ACETAMINOPHEN 5-325 MG TABLET PO PRN (08:25)
[2016-09-27] MEDS ORDERED: POTASSIUM CHLORIDE 20 MEQ TABLET PO PRN (08:25)
[2016-09-27] MEDS ORDERED: DEXTROSE 50% 25 GM/50 ML VIAL IV PRN ×2 (08:25)
[2016-09-27] MEDS ORDERED: MAGNESIUM SULF RIDER 4 GM in PREMIX 1 EACH IV PRN (08:25)
[2016-09-27] MEDS ORDERED: SODIUM CHLOR 0.45% KCL 20 MEQ 20 MEQ/1,000 ML BAG IV SCH (08:25)
[2016-09-27] MEDS ORDERED: ALUMINUM/MAGNES/SIMETH MAX STR 30 ML UDCUP PO PRN (08:25)
[2016-09-27] MEDS ORDERED: SILDENAFIL CITRATE 100 MG PO PRN (08:25)
[2016-09-27] MEDS ORDERED: GLUCAGON 1 MG VIAL IM PRN ×2 (08:25)
[2016-09-27] MEDS ORDERED: ONDANSETRON 4 MG/2 ML VIAL IV PRN (08:25)
[2016-09-27] MEDS: PANTOPRAZOLE 40 MG TABLET PO SCH (09:00)
[2016-09-27] MEDS: FERROUS SULFATE 325 MG TABLET PO SCH (09:00)
[2016-09-27] MEDS: DOCUSATE SODIUM 100 MG CAPSULE PO SCH (09:00)
[2016-09-27] MEDS: FLUTICASONE 50 MCG NASAL SPRAY 16 GM BOTTLE BOTH NARES SCH (09:12)
--- NOTE | 2016-09-27 12:42 | Pathology Report from [facility] ---
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 Gross only. DIAGNOSIS FOR JUAN GOLDBERG: Sternal wires, gross only. COLLECTED DATE: 09/26/2016 [facility] [place]: 09/27/2016 ELECTRONICALLY SIGNED BY: Theo Cerda M.D. 09/27/2016 - 9:21:15 [facility]
--- NOTE | 2016-09-27 15:58 | Cardiology Progress Note ---
Shady Coreas Vanessa, RN, am scribing for, and in the presence of, Michelle Bond MD 15:58. Assessment and Plan - Time spent with patient Time spent with patient: Greater than 30 minutes (1) Hypertension Status: Chronic Assessment and plan: SEE PLAN OF CARE LISTED BELOW. Current Visit: Yes (2) CAD (coronary artery disease) Status: Chronic Assessment and plan: SEE PLAN OF CARE LISTED BELOW. Current Visit: Yes (3) CAD (coronary artery disease) of bypass graft Status: Chronic Assessment and plan: SEE PLAN OF CARE LISTED BELOW. Current Visit: Yes (4) History of coronary artery bypass graft x 3 Status: Chronic Assessment and plan: SEE PLAN OF CARE LISTED BELOW. Current Visit: Yes (5) Dyslipidemia Status: Chronic Assessment and plan: SEE PLAN OF CARE LISTED BELOW. Current Visit: Yes (6) History of carotid endarterectomy Status: Chronic Assessment and plan: SEE PLAN OF CARE LISTED BELOW. Current Visit: Yes (7) GERD (gastroesophageal reflux disease) Status: Chronic Assessment and plan: SEE PLAN OF CARE LISTED BELOW. Current Visit: Yes (8) History of carotid artery stenosis Status: Chronic Assessment and plan: SEE PLAN OF CARE LISTED BELOW. Current Visit: Yes Cardiology - PN: Subj Interval history: PRIMARY TESTER VIBRATOR EQUIPMENT: DR. WING SUMMARY: Mr. Goldberg is a 80 year old white male with risk factors significant for: age, hypertension, dyslipidemia, and previous history of CAD. He has never been a smoker. Patient is status post CABG x [address] Harris with SVG to LAD, SVG to OM, and SVG to PDA. He is a former patient of Dr. Hatch, and he had an abnormal but stable exercise cardiac stress test in April 2015 in the office which showed mixed inferolateral scar and ischemia with EF 55%. Patient had tolerated medical therapy well without anginal complaint. Mr. Goldberg was evaluated by Dr. Wing in clinic on September 19 as a work in for exertional chest pain with associated dyspnea and relieved with 3-5 minutes of rest. Due to clinical presentation and cardiac history, it was elected he undergo left heart catheterization to define coronary anatomy with percutaneous coronary intervention if necessary. [facility] on September 24 for elective cath per Dr. Wing. Cardiac cath revealed severe, high grade occlusive disease of all three saphenous vein grafts with significant myocardium at risk, EF 50% with mild global hypokinesis. After discussion with patient and family, Dr. Harris was consulted for redo CABG. Dr. Harris has evaluated , and patient is scheduled to undergo repeat coronary artery bypass grafting September 26. September: Mr. Goldberg is postoperative day #1 s/p redo CABG x 3. He was extubated earlier, and he is awake and alert this morning. Denies complaint at this time. SBP 140- 160 mmHg. IV Nitroglycerin is being weaned as tolerated, and after it is discontinued and vitals remain stable, patient will be transferred to telemetry unit later this afternoon. Pacing wires intact. Surgical incisions are dry and intact. He is taking PO medicines this morning without difficulty. Labs reviewed. He did have a brief period of atrial fibrillation overnight but was controlled with IV Cardizem and IV amiodarone which has since been able to be discontinued. ASSESSMENT/PLAN: 1. CORONARY ARTERY DISEASE - Clinically stable at this time. Continue low dose ASA, JYOTSNA inhibitor, and statin. Beta jac currently being held. 2. HISTORY OF CABG - Status post saphenous vein grafting x 3 in 1991 and now has been found to have severe occlusive disease of all 3 grafts. He is now POD # 1 s/p redo CABG x 3 with KIRK to Cx marginal, SVG to LAD, and SVG to RCA. Continue current plan of care. 3. HYPERTENSION - Borderline hypotensive in immediate postoperative period. No longer requiring vasopressor. Weaning IV Nitro as BP allows. 4. HYPERLIPIDEMIA - Continue rosuvastatin 20 mg PO nightly. FLP in clinic on August 10 unremarkable. 5. GERD - Continue PPI. 6. HISTORY OF CAROTID ARTERY STENOSIS - This was asymptomatic. He is now status post left CEA. No neurologic symptoms at this time. Exam (Progress Note) - Constitutional Vitals: Period Temp Pulse Resp BP Sys/Lea Pulse Ox Last 24 Hr 96.9 F-98.7 F 80-132 10-81 87-161/44-85 96-100 Exam: General appearance: normal weight. no acute distress. pleasant and oriented x 3. - Head Head exam: Present: normal inspection. Absent: abrasion, contusion, hematoma, laceration - Eye Eye exam: Present: EOMI. Absent: periorbital swelling, scleral icterus Pupils: Present: ANGEL. Absent: dilated, fixed - ENT ENT exam: Present: normal external ear exam - Neck Neck exam: Present: normal inspection. Absent: tenderness - Respiratory Respiratory exam: Present: clear to auscultation bilaterally anteriorly. Absent : rales, rhonchi, stridor, wheezes - Cardiovascular Cardiovascular exam: Present: regular rhythm and rate, carotid bruit (bilateral) . Absent: irregular rhythm, JVD, systolic murmur, tachycardia - GI/Abdominal GI/Abdominal exam: Present: normal bowel sounds, soft. Absent: ascites, distended, firm, mass, tenderness - Extremities Exam Extremities exam: Present: normal inspection, normal capillary refill, full ROM. Absent: calf tenderness, edema - Neurological Exam Neurological exam: Present: grossly intact; no resting tremor - Psychiatric Psychiatric exam: Present: normal affect, normal mood. He does not appear anxious or depressed. - Skin Skin exam: Present: normal color, warm, dry. other (sternal incision and right lower leg incision are dry/intact with dressings in place). Absent: abrasion, cyanosis, diaphoretic, rash Result/EKG - Labs CBC & BMP: 09/27/16 04:00 09/27/16 04:00 Lab Results: I have reviewed the past 24 hour labs Labs: Laboratory Results - last 24 hr 09/25/16 09/26/16 09/26/16 03:25 09:20 09:45 WBC RBC Hgb Hct MCV MCH MCHC RDW Plt Count MPV Neut % (Auto) Lymph % (Auto) [place] % (Auto) Eos % (Auto) Baso % (Auto) Neut # (Auto) Lymph # (Auto) [place] # (Auto) Eos # (Auto) Baso # (Auto) Total Counted Immature Gran % Nucleated RBC % Immature Gran # Segmented Neutrophils Band Neutrophils Lymphocytes Monocytes Nucleated RBCs # Platelet Estimate Immature Plt Fraction Hypochromasia Microcytosis Ovalocytes Joni Cells Acanthocytes (Spur) INR PT Patient/Control Mix Circ Anticoag PTT Patient Temperature 34 34 ABG pH ABG pH at Pt Temp 7.435 7.470 ABG pCO2 ABG pCO2 at Pt Temp 36.6 34.4 ABG pO2 ABG pO2 at Pt Temp 36.8 32.7 ABG HCO3 ABG Total CO2 ABG O2 Saturation ABG Base Excess ABG Sodium 139 134 L VBG pH 7.391 7.426 VBG pCO2 42.3 39.7 L VBG pO2 45.3 H 40.4 H VBG HCO3 24.7 25.6 VBG Total CO2 23.6 24.0 VBG O2 Saturation 81.1 78.1 VBG Base Excess 0.7 1.7 Hemoglobin 9.7 L D 9.5 L Hematocrit 30.0 L 29.3 L Potassium 4.2 4.3 Glucose 120 H 258 H Ionized Calcium FiO2 80.00 80.00 Sodium Chloride Carbon Dioxide Anion Gap BUN Creatinine GFR Calculation BUN/Creatinine Ratio Calculated Osmolality Calcium Venous Ioniz Calcium 1.01 L 1.04 L Magnesium Total Bilirubin Direct Bilirubin AST ALT Alkaline Phosphatase Total Creatine Kinase CK-MB (CK-2) CK and CKMB Interp Troponin I Total Protein Albumin Globulin Albumin/Globulin Ratio Blood Type AB NEGATIVE Antibody Screen Negative Crossmatch See Detail 09/26/16 09/26/16 09/26/16 10:20 11:19 11:19 WBC RBC Hgb Hct MCV MCH MCHC RDW Plt Count 55 L D MPV Neut % (Auto) Lymph % (Auto) [place] % (Auto) Eos % (Auto) Baso % (Auto) Neut # (Auto) Lymph # (Auto) [place] # (Auto) Eos # (Auto) Baso # (Auto) Total Counted Immature Gran % Nucleated RBC % Immature Gran # Segmented Neutrophils Band Neutrophils Lymphocytes Monocytes Nucleated RBCs # Platelet Estimate Immature Plt Fraction Hypochromasia Microcytosis Ovalocytes Walsh Cells Acanthocytes (Spur) INR PT Patient/Control Mix Circ Anticoag PTT Patient Temperature 34 37 ABG pH 7.394 ABG pH at Pt Temp 7.481 7.394 ABG pCO2 39.6 ABG pCO2 at Pt Temp 33.2 39.6 ABG pO2 217.0 H ABG pO2 at Pt Temp 34.9 217.0 ABG HCO3 24.0 ABG Total CO2 22.0 L ABG O2 Saturation 100.0 ABG Base Excess -0.5 ABG Sodium 134 L 136 VBG pH 7.436 VBG pCO2 38.4 L VBG pO2 43.0 H VBG HCO3 25.6 VBG Total CO2 23.5 VBG O2 Saturation 80.6 VBG Base Excess 1.7 Hemoglobin 10.0 L 10.0 L Hematocrit 31.0 L 31.0 L Potassium 4.2 4.0 Glucose 290 H 223 H Ionized Calcium 1.27 FiO2 80.00 Sodium Chloride Carbon Dioxide Anion Gap BUN Creatinine GFR Calculation BUN/Creatinine Ratio Calculated Osmolality Calcium Venous Ioniz Calcium 1.05 L Magnesium Total Bilirubin Direct Bilirubin AST ALT Alkaline Phosphatase Total Creatine Kinase CK-MB (CK-2) CK and CKMB Interp Troponin I Total Protein Albumin Globulin Albumin/Globulin Ratio Blood Type Antibody Screen Crossmatch 09/26/16 09/26/16 09/26/16 12:34 12:34 12:34 WBC 8.1 D RBC 3.77 L Hgb 10.9 L Hct 31.8 L MCV 84.4 L MCH 29 MCHC 34.3 RDW 14.3 Plt Count 95 L D MPV 9.1 L Neut % (Auto) 84.8 H Lymph % (Auto) 7.8 L [place] % (Auto) 5.7 Eos % (Auto) 0.6 Baso % (Auto) 0.2 Neut # (Auto) 6.9 Lymph # (Auto) 0.6 L [place] # (Auto) 0.5 Eos # (Auto) 0.1 Baso # (Auto) 0.0 Total Counted Immature Gran % 0.9 Nucleated RBC % 0.0 Immature Gran # 0.07 Segmented Neutrophils Band Neutrophils Lymphocytes Monocytes Nucleated RBCs # 0.00 Platelet Estimate Decreased Immature Plt Fraction 1.0 Hypochromasia Slight Microcytosis Ovalocytes Joni Cells 2+ Acanthocytes (Spur) INR PT Patient/Control Mix Circ Anticoag PTT Patient Temperature ABG pH 7.438 ABG pH at Pt Temp ABG pCO2 35.9 ABG pCO2 at Pt Temp ABG pO2 131.0 H ABG pO2 at Pt Temp ABG HCO3 24.8 ABG Total CO2 21.8 L ABG O2 Saturation 99.0 ABG Base Excess 0.4 ABG Sodium VBG pH VBG pCO2 VBG pO2 VBG HCO3 VBG Total CO2 VBG O2 Saturation VBG Base Excess Hemoglobin 10.8 L Hematocrit 33.4 L Potassium 3.9 3.8 Glucose 174 H 178 H Ionized Calcium FiO2 Sodium 142 Chloride 109 H Carbon Dioxide 25 Anion Gap 11.9 BUN 10 Creatinine 0.90 GFR Calculation 93 BUN/Creatinine Ratio 11.00 Calculated Osmolality 285.1 Calcium 7.8 L Venous Ioniz Calcium Magnesium 2.2 Total Bilirubin 1.30 H Direct Bilirubin AST 39 H ALT 13 L Alkaline Phosphatase 43 L Total Creatine Kinase CK-MB (CK-2) CK and CKMB Interp Troponin I Total Protein 4.3 L Albumin 2.4 L Globulin 1.9 L Albumin/Globulin Ratio 1.2 Blood Type Antibody Screen Crossmatch 09/26/16 09/26/16 09/26/16 12:34 14:07 14:18 WBC RBC Hgb Hct MCV MCH MCHC RDW Plt Count MPV Neut % (Auto) Lymph % (Auto) [place] % (Auto) Eos % (Auto) Baso % (Auto) Neut # (Auto) Lymph # (Auto) [place] # (Auto) Eos # (Auto) Baso # (Auto) Total Counted Immature Gran % Nucleated RBC % Immature Gran # Segmented Neutrophils Band Neutrophils Lymphocytes Monocytes Nucleated RBCs # Platelet Estimate Immature Plt Fraction Hypochromasia Microcytosis Ovalocytes Joni Cells Acanthocytes (Spur) INR 1.2 PT Patient/Control Mix 13.1 Circ Anticoag PTT 29.5 Patient Temperature ABG pH 7.477 H ABG pH at Pt Temp ABG pCO2 32.7 L ABG pCO2 at Pt Temp ABG pO2 197.0 H ABG pO2 at Pt Temp ABG HCO3 25.5 ABG Total CO2 21.5 L ABG O2 Saturation 99.7 ABG Base Excess 1.2 ABG Sodium VBG pH VBG pCO2 VBG pO2 VBG HCO3 VBG Total CO2 VBG O2 Saturation VBG Base Excess Hemoglobin 11.2 L Hematocrit 34.7 L Potassium 4.7 Glucose 153 H Ionized Calcium FiO2 Sodium Chloride Carbon Dioxide Anion Gap BUN Creatinine GFR Calculation BUN/Creatinine Ratio Calculated Osmolality Calcium Venous Ioniz Calcium Magnesium Total Bilirubin Direct Bilirubin AST ALT Alkaline Phosphatase Total Creatine Kinase 287 CK-MB (CK-2) 32.4 H CK and CKMB Interp 11.3 Troponin I 5.050 H Total Protein Albumin Globulin Albumin/Globulin Ratio Blood Type Antibody Screen Crossmatch 09/26/16 09/26/16 09/26/16 15:50 17:51 20:50 WBC RBC Hgb Hct MCV MCH MCHC RDW Plt Count MPV Neut % (Auto) Lymph % (Auto) [place] % (Auto) Eos % (Auto) Baso % (Auto) Neut # (Auto) Lymph # (Auto) [place] # (Auto) Eos # (Auto) Baso # (Auto) Total Counted Immature Gran % Nucleated RBC % Immature Gran # Segmented Neutrophils Band Neutrophils Lymphocytes Monocytes Nucleated RBCs # Platelet Estimate Immature Plt Fraction Hypochromasia Microcytosis Ovalocytes Joni Cells Acanthocytes (Spur) INR PT Patient/Control Mix Circ Anticoag PTT Patient Temperature ABG pH 7.475 H 7.437 ABG pH at Pt Temp ABG pCO2 32.1 L 35.0 ABG pCO2 at Pt Temp ABG pO2 134.0 H 93.2 ABG pO2 at Pt Temp ABG HCO3 24.9 24.3 ABG Total CO2 21.4 L 21.7 L ABG O2 Saturation 99.2 98.6 ABG Base Excess 0.5 -0.2 ABG Sodium VBG pH VBG pCO2 VBG pO2 VBG HCO3 VBG Total CO2 VBG O2 Saturation VBG Base Excess Hemoglobin 9.7 L 9.0 L Hematocrit 30.1 L 28.0 L Potassium 4.2 4.3 Glucose 139 H 151 H Ionized Calcium FiO2 Sodium Chloride Carbon Dioxide Anion Gap BUN Creatinine GFR Calculation BUN/Creatinine Ratio Calculated Osmolality Calcium Venous Ioniz Calcium Magnesium Total Bilirubin Direct Bilirubin AST ALT Alkaline Phosphatase Total Creatine Kinase 344 H CK-MB (CK-2) 31.2 H CK and CKMB Interp 9.1 Troponin I 6.940 H D Total Protein Albumin Globulin Albumin/Globulin Ratio Blood Type Antibody Screen Crossmatch 09/26/16 09/26/16 09/27/16 20:50 23:55 01:15 WBC RBC Hgb Hct MCV MCH MCHC RDW Plt Count MPV Neut % (Auto) Lymph % (Auto) [place] % (Auto) Eos % (Auto) Baso % (Auto) Neut # (Auto) Lymph # (Auto) [place] # (Auto) Eos # (Auto) Baso # (Auto) Total Counted Immature Gran % Nucleated RBC % Immature Gran # Segmented Neutrophils Band Neutrophils Lymphocytes Monocytes Nucleated RBCs # Platelet Estimate Immature Plt Fraction Hypochromasia Microcytosis Ovalocytes Walsh Cells Acanthocytes (Spur) INR PT Patient/Control Mix Circ Anticoag PTT Patient Temperature 37 ABG pH 7.402 7.431 ABG pH at Pt Temp 7.407 ABG pCO2 34.9 L 32.3 L ABG pCO2 at Pt Temp 36.6 ABG pO2 104.0 H 93.8 ABG pO2 at Pt Temp 37.4 ABG HCO3 22.3 22.7 ABG Total CO2 19.9 L 19.4 L ABG O2 Saturation 98.9 98.1 ABG Base Excess -2.6 L -2.1 ABG Sodium 140 VBG pH 7.407 VBG pCO2 36.6 L VBG pO2 37.4 VBG HCO3 22.9 L VBG Total CO2 21.1 VBG O2 Saturation 73.0 VBG Base Excess -1.3 L Hemoglobin 9.4 L 9.7 L 10.5 L Hematocrit 29.2 L 30.0 L 32.6 L Potassium 4.0 4.2 4.4 Glucose 163 H 160 H 162 H Ionized Calcium FiO2 21.00 Sodium Chloride Carbon Dioxide Anion Gap BUN Creatinine GFR Calculation BUN/Creatinine Ratio Calculated Osmolality Calcium Venous Ioniz Calcium 1.17 L Magnesium Total Bilirubin Direct Bilirubin AST ALT Alkaline Phosphatase Total Creatine Kinase CK-MB (CK-2) CK and CKMB Interp Troponin I Total Protein Albumin Globulin Albumin/Globulin Ratio Blood Type Antibody Screen Crossmatch 09/27/16 09/27/16 09/27/16 02:15 02:45 04:00 WBC 13.4 H D RBC 3.64 L Hgb 10.5 L Hct 30.7 L MCV 84.3 L MCH 29 MCHC 34.2 RDW 14.1 Plt Count 102 L MPV 9.4 L Neut % (Auto) 91.1 H Lymph % (Auto) 3.9 L [place] % (Auto) 4.5 Eos % (Auto) 0.0 Baso % (Auto) 0.1 Neut # (Auto) 12.2 H Lymph # (Auto) 0.5 L [place] # (Auto) 0.6 Eos # (Auto) 0.0 Baso # (Auto) 0.0 Total Counted 100 Immature Gran % 0.4 Nucleated RBC % 0.0 Immature Gran # 0.05 Segmented Neutrophils 90 H Band Neutrophils 1 Lymphocytes 6 L Monocytes 3 Nucleated RBCs # 0.00 Platelet Estimate Decreased Immature Plt Fraction 0.0 Hypochromasia Microcytosis Slight Ovalocytes Slight Joni Cells Acanthocytes (Spur) Few INR PT Patient/Control Mix Circ Anticoag PTT Patient Temperature ABG pH 7.424 7.409 ABG pH at Pt Temp ABG pCO2 33.2 L 35.5 ABG pCO2 at Pt Temp ABG pO2 117.0 H 128.0 H ABG pO2 at Pt Temp ABG HCO3 22.8 23.0 ABG Total CO2 19.7 L 20.3 L ABG O2 Saturation 99.0 99.2 ABG Base Excess -2.0 -1.7 ABG Sodium VBG pH VBG pCO2 VBG pO2 VBG HCO3 VBG Total CO2 VBG O2 Saturation VBG Base Excess Hemoglobin 10.3 L 10.2 L Hematocrit 31.7 L 31.6 L Potassium 4.7 4.6 Glucose 162 H 163 H Ionized Calcium FiO2 Sodium Chloride Carbon Dioxide Anion Gap BUN Creatinine GFR Calculation BUN/Creatinine Ratio Calculated Osmolality Calcium Venous Ioniz Calcium Magnesium Total Bilirubin Direct Bilirubin AST ALT Alkaline Phosphatase Total Creatine Kinase CK-MB (CK-2) CK and CKMB Interp Troponin I Total Protein Albumin Globulin Albumin/Globulin Ratio Blood Type Antibody Screen Crossmatch 09/27/16 09/27/16 09/27/16 04:00 04:00 04:00 WBC RBC Hgb Hct MCV MCH MCHC RDW Plt Count MPV Neut % (Auto) Lymph % (Auto) [place] % (Auto) Eos % (Auto) Baso % (Auto) Neut # (Auto) Lymph # (Auto) [place] # (Auto) Eos # (Auto) Baso # (Auto) Total Counted Immature Gran % Nucleated RBC % Immature Gran # Segmented Neutrophils Band Neutrophils Lymphocytes Monocytes Nucleated RBCs # Platelet Estimate Immature Plt Fraction Hypochromasia Microcytosis Ovalocytes Walsh Cells Acanthocytes (Spur) INR PT Patient/Control Mix Circ Anticoag PTT Patient Temperature ABG pH 7.393 ABG pH at Pt Temp ABG pCO2 36.7 ABG pCO2 at Pt Temp ABG pO2 112.0 H ABG pO2 at Pt Temp ABG HCO3 22.7 ABG Total CO2 20.3 L ABG O2 Saturation 98.7 ABG Base Excess -2.1 ABG Sodium VBG pH VBG pCO2 VBG pO2 VBG HCO3 VBG Total CO2 VBG O2 Saturation VBG Base Excess Hemoglobin 10.4 L Hematocrit 32.2 L Potassium 4.4 4.3 Glucose 140 H 150 H Ionized Calcium FiO2 Sodium 142 Chloride 111 H Carbon Dioxide 24 Anion Gap 11.4 BUN 13 Creatinine 1.10 GFR Calculation 75 BUN/Creatinine Ratio 11.00 Calculated Osmolality 284.1 Calcium 8.3 L Venous Ioniz Calcium Magnesium 2.0 Total Bilirubin 0.90 Direct Bilirubin 0.30 H AST 48 H ALT 16 Alkaline Phosphatase 34 L Total Creatine Kinase 389 H CK-MB (CK-2) 31.7 H CK and CKMB Interp 8.1 Troponin I 6.640 H Total Protein 5.1 L Albumin 3.7 Globulin 1.4 L Albumin/Globulin Ratio 2.6 H Blood Type Antibody Screen Crossmatch - Diagnostic Findings Procedure: Chest x-ray: image reviewed by me, report reviewed by me - EKG EKG results: interpreted by me, no acute changes (pacing) Quality Measures - VTE Contraindication to Pharmacological VTE Prophylaxis: High Risk of Bleeding Specialty Discharge - Follow Up or Referrals IVarun Jennifer, MD, personally performed the services described in this documentation, ascribed by Maggie Caruso RN in my presence, and it is both accurate and complete [id number] .
[2016-09-27] MEDS: MAGNESIUM HYDROXIDE SUSP 30 ML UDCUP PO PRN (16:12)
[2016-09-27] MEDS: ROSUVASTATIN 20 MG TABLET PO SCH (21:19)
[2016-09-27] MEDS: ASPIRIN CHEW 81 MG TABLET PO SCH (21:19)
[2016-09-28] MEDS: KETOROLAC 30 MG/1 ML VIAL IV SCH ×4 (04:52→22:57)
[2016-09-28 05:54] LABS: Basophils % 0.1 % (0.0-0.8); Hematocrit 28.3 VOL% (42.0-52.0); Hemoglobin 9.6 GM/DL (14.0-18.0); Immature Granulocytes % 0.9 %; Immature Granulocytes Absolute 0.11 #; Lymphocytes # 0.8 10*3/uL (1.4-4.0); Lymphocytes % 6.1 % (21.2-54.2); Mean Corpuscular HGB Conc 33.9 GM/DL (32-36); Mean Corpuscular Hemoglobin 29 PG (27-34); Mean Platelet Volume 9.4 FL (9.6-12.0); Monocytes # 0.9 10*3/uL (0.11-0.8); Monocytes % 7.1 % (1.7-12.7); Neutrophils # 10.6 10*3/uL (1.4-7.4); Neutrophils % 85.8 % (38.7-73.9); Platelet Count 106 T/CUMM (130-400); Red Blood Count 3.33 MC/CUMM (3.8-5.5); Red Cell Distribution Width 14.5 % (9.3-17.3); White Blood Count 12.4 T/CUMM (4-12)
[2016-09-28] MEDS ORDERED: FUROSEMIDE 40 MG/4 ML VIAL IV ONE (06:00)
[2016-09-28 06:17] LABS: Albumin 2.9 G/DL (3.4-5.0); Bilirubin,Direct 0.2 MG/DL (0.0-0.20); Bilirubin,Indirect 1.1 MG/DL (0.0-1.0); Bilirubin,Total 1.3 MG/DL (0.2-1.0); CKMB % 2.8 %; Calcium 7.8 MG/DL (8.5-10.1); Magnesium 2.4 MG/DL (1.8-2.4); Osmolality,Calculated 284.4 MOS/KG (273-304); Potassium 4.8 MMOL/L (3.5-5.1); Total Protein 4.6 G/DL (6.4-8.3)
[2016-09-28 06:18] LABS: Troponin I Only 3.25 NG/ML (0.00-0.045)
--- NOTE | 2016-09-28 07:14 | XRay Report ---
Exam: XR chest 1V portable Date: 09/28/2016 4:00 AM Indication: Shortness of breath Comparison: 09/27/2016 Technical: AP portable Findings: Mild prominence the cardiac silhouette. Prior sternotomy A right IJ catheter is present. Elevation right hemidiaphragm is chronic. There some patchy interstitial infiltrate however suspected in the right base. No pneumothorax present. Mediastinum is otherwise intact. Impression: 1. Previous sternotomy with mild cardiac enlargement 2. Stepsister right IJ catheter 3. Question atelectatic change or infiltrate the right base with some chronic elevation right hemidiaphragm suspected in tiny effusion also felt to be present PROCEDURE INTERPRETED AT [facility] DEPARTMENT OF RADIOLOGY Final Report Signed by: Dr. Leo Love
[2016-09-28] MEDS: AMIODARONE 200 MG TABLET PO SCH (07:30)
--- NOTE | 2016-09-28 07:37 | EKG Report ---
Stationary ECG Study [facility] Test Date: 09/28/2016 7:37:47 AM Pat Name: JUAN BAKER Department: Room: 262 Gender: M [employer]er: : 1935 Requested by: Margarito Zepeda Order Number: [id number] Scotty MD: ERIK OLIVARES Intervals [place] Rate: 160 P: 999 OR: 0 QRS: 255 QRSD: 147 T: 52 QT: 323 QTc: 412 Interpretive Statements ATRIAL FIBRILLATION WITH RAPID VENTRICULAR RESPONSE MARKED RIGHT AXIS DEVIATION RIGHT BUNDLE BRANCH BLOCK POSSIBLE ANTERIOR MYOCARDIAL INFARCTION, PROBABLY OLD INTERPRETATION BASED ON A DEFAULT AGE OF 40 YEARS Electronically Signed On 09-30-16 18:40:30 CDT by ERIK OLIVARES [email or web address]
[2016-09-28] MEDS ORDERED: SODIUM CHLORIDE 0.9% 100 ML IV ONE (07:45)
[2016-09-28] MEDS ORDERED: DILTIAZEM 100 MG VIAL.ADD IV ONE (07:45)
[2016-09-28] MEDS ORDERED: DILTIAZEM 50 MG/10 ML VIAL IV ONE ×2 (07:47→08:01)
[2016-09-28] MEDS ORDERED: DILTIAZEM INJ 100 MG in SODIUM CHLORIDE 0.9% 100 ML IV SCH (08:30)
--- NOTE | 2016-09-28 09:18 | Cardiothoracic Progress Note ---
Cardiothoracic Subjective Interval history: Patient looks and feels okay this morning except he did develop recurrent atrial flutter earlier with rapid ventricular response. He is now on a Cardizem infusion which is slowly slowing down his ventricular response and I am going to rebolus him with IV amiodarone and resume an amiodarone infusion as well. His vital signs have remained stable otherwise and he is breathing comfortably. His chest x-ray looks relatively clear and his blood work is essentially okay for postoperative day 2. Given his recurrence of atrial dysrhythmia I am going to add Eliquis to his therapy at least during his period of atrial dysrhythmia. Exam (Progress Note) - Constitutional Vitals: Period Temp Pulse Resp BP Sys/Lea Pulse Ox Last 24 Hr 97.9 F-99.3 F 78-158 12-20 99-154/52-85 95-99 Result/EKG - Labs CBC & BMP: 09/28/16 05:30 09/28/16 05:30 Labs: Laboratory Results - last 24 hr 09/25/16 09/26/16 09/26/16 03:25 13:05 15:07 WBC RBC Hgb Hct MCV MCH MCHC RDW Plt Count MPV Neut % (Auto) Lymph % (Auto) [place] % (Auto) Eos % (Auto) Baso % (Auto) Neut # (Auto) Lymph # (Auto) [place] # (Auto) Eos # (Auto) Baso # (Auto) Immature Gran % Nucleated RBC % Immature Gran # Nucleated RBCs # Immature Plt Fraction Sodium Potassium Chloride Carbon Dioxide Anion Gap BUN Creatinine GFR Calculation BUN/Creatinine Ratio Glucose POC Glucose 177 H 154 H Calculated Osmolality Calcium Magnesium Total Bilirubin Direct Bilirubin Indirect Bilirubin AST ALT Alkaline Phosphatase Total Creatine Kinase CK-MB (CK-2) CK and CKMB Interp Troponin I Total Protein Albumin Globulin Albumin/Globulin Ratio Crossmatch See Detail 09/26/16 09/26/16 09/26/16 17:16 19:02 20:53 WBC RBC Hgb Hct MCV MCH MCHC RDW Plt Count MPV Neut % (Auto) Lymph % (Auto) [place] % (Auto) Eos % (Auto) Baso % (Auto) Neut # (Auto) Lymph # (Auto) [place] # (Auto) Eos # (Auto) Baso # (Auto) Immature Gran % Nucleated RBC % Immature Gran # Nucleated RBCs # Immature Plt Fraction Sodium Potassium Chloride Carbon Dioxide Anion Gap BUN Creatinine GFR Calculation BUN/Creatinine Ratio Glucose POC Glucose 141 H 167 H 164 H Calculated Osmolality Calcium Magnesium Total Bilirubin Direct Bilirubin Indirect Bilirubin AST ALT Alkaline Phosphatase Total Creatine Kinase CK-MB (CK-2) CK and CKMB Interp Troponin I Total Protein Albumin Globulin Albumin/Globulin Ratio Crossmatch 09/26/16 09/26/16 09/27/16 22:30 23:03 05:06 WBC RBC Hgb Hct MCV MCH MCHC RDW Plt Count MPV Neut % (Auto) Lymph % (Auto) [place] % (Auto) Eos % (Auto) Baso % (Auto) Neut # (Auto) Lymph # (Auto) [place] # (Auto) Eos # (Auto) Baso # (Auto) Immature Gran % Nucleated RBC % Immature Gran # Nucleated RBCs # Immature Plt Fraction Sodium Potassium Chloride Carbon Dioxide Anion Gap BUN Creatinine GFR Calculation BUN/Creatinine Ratio Glucose POC Glucose 183 H 169 H 144 H Calculated Osmolality Calcium Magnesium Total Bilirubin Direct Bilirubin Indirect Bilirubin AST ALT Alkaline Phosphatase Total Creatine Kinase CK-MB (CK-2) CK and CKMB Interp Troponin I Total Protein Albumin Globulin Albumin/Globulin Ratio Crossmatch 09/27/16 09/27/16 09/27/16 06:06 08:14 15:11 WBC RBC Hgb Hct MCV MCH MCHC RDW Plt Count MPV Neut % (Auto) Lymph % (Auto) [place] % (Auto) Eos % (Auto) Baso % (Auto) Neut # (Auto) Lymph # (Auto) [place] # (Auto) Eos # (Auto) Baso # (Auto) Immature Gran % Nucleated RBC % Immature Gran # Nucleated RBCs # Immature Plt Fraction Sodium Potassium Chloride Carbon Dioxide Anion Gap BUN Creatinine GFR Calculation BUN/Creatinine Ratio Glucose POC Glucose 128 H 143 H 203 H Calculated Osmolality Calcium Magnesium Total Bilirubin Direct Bilirubin Indirect Bilirubin AST ALT Alkaline Phosphatase Total Creatine Kinase CK-MB (CK-2) CK and CKMB Interp Troponin I Total Protein Albumin Globulin Albumin/Globulin Ratio Crossmatch 09/27/16 09/28/16 09/28/16 18:56 05:30 05:30 WBC 12.4 H RBC 3.33 L Hgb 9.6 L Hct 28.3 L MCV 85.0 L MCH 29 MCHC 33.9 RDW 14.5 Plt Count 106 L MPV 9.4 L Neut % (Auto) 85.8 H Lymph % (Auto) 6.1 L [place] % (Auto) 7.1 Eos % (Auto) 0.0 Baso % (Auto) 0.1 Neut # (Auto) 10.6 H Lymph # (Auto) 0.8 L [place] # (Auto) 0.9 H Eos # (Auto) 0.0 Baso # (Auto) 0.0 Immature Gran % 0.9 Nucleated RBC % 0.0 Immature Gran # 0.11 Nucleated RBCs # 0.00 Immature Plt Fraction 0.0 Sodium 140 Potassium 4.8 Chloride 108 H Carbon Dioxide 26 Anion Gap 10.8 BUN 24 H Creatinine 1.00 GFR Calculation 84 BUN/Creatinine Ratio 24.00 H Glucose 128 H POC Glucose 181 H Calculated Osmolality 284.4 Calcium 7.8 L Magnesium 2.4 Total Bilirubin 1.30 H Direct Bilirubin 0.20 Indirect Bilirubin 1.1 H AST 42 H ALT 16 Alkaline Phosphatase 33 L Total Creatine Kinase 363 H CK-MB (CK-2) 10.2 H D CK and CKMB Interp 2.8 Troponin I 3.250 H D Total Protein 4.6 L Albumin 2.9 L Globulin 1.7 L Albumin/Globulin Ratio 1.7 Crossmatch 09/28/16 07:25 WBC RBC Hgb Hct MCV MCH MCHC RDW Plt Count MPV Neut % (Auto) Lymph % (Auto) [place] % (Auto) Eos % (Auto) Baso % (Auto) Neut # (Auto) Lymph # (Auto) [place] # (Auto) Eos # (Auto) Baso # (Auto) Immature Gran % Nucleated RBC % Immature Gran # Nucleated RBCs # Immature Plt Fraction Sodium Potassium Chloride Carbon Dioxide Anion Gap BUN Creatinine GFR Calculation BUN/Creatinine Ratio Glucose POC Glucose 139 H Calculated Osmolality Calcium Magnesium Total Bilirubin Direct Bilirubin Indirect Bilirubin AST ALT Alkaline Phosphatase Total Creatine Kinase CK-MB (CK-2) CK and CKMB Interp Troponin I Total Protein Albumin Globulin Albumin/Globulin Ratio Crossmatch Quality Measures - VTE Contraindication to Pharmacological VTE Prophylaxis: High Risk of Bleeding Specialty Discharge - Follow Up or Referrals
[2016-09-28] MEDS ORDERED: AMIODARONE 450 MG/9 ML VIAL IV ONE (09:55)
[2016-09-28] MEDS ORDERED: AMIODARONE 150 MG/3 ML VIAL ONE (09:55)
[2016-09-28] MEDS ORDERED: AMIODARONE INJ 100 MG in DEXTROSE 5% 100 ML IV ONE (10:00)
[2016-09-28] MEDS: LISINOPRIL/HCTZ 20-12.5 MG TABLET PO SCH ×2 (10:06→10:15)
[2016-09-28] MEDS: FERROUS SULFATE 325 MG TABLET PO SCH (10:07)
[2016-09-28] MEDS: APIXABAN 2.5 MG TABLET PO SCH ×2 (10:08→22:58)
[2016-09-28] MEDS: PANTOPRAZOLE 40 MG TABLET PO SCH (10:08)
[2016-09-28] MEDS: DOCUSATE SODIUM 100 MG CAPSULE PO SCH (10:08)
[2016-09-28] MEDS: CHLORHEXIDINE 0.12% ORAL RINSE 60 ML BOTTLE SWISH/SPIT SCH ×2 (10:09→22:58)
[2016-09-28] MEDS: FLUTICASONE 50 MCG NASAL SPRAY 16 GM BOTTLE BOTH NARES SCH (10:09)
[2016-09-28] MEDS: MAGNESIUM HYDROXIDE SUSP 30 ML UDCUP PO PRN (10:10)
[2016-09-28] MEDS: AMIODARONE INJ 450 MG in DEXTROSE 5% 241 ML IV SCH (10:13)
--- NOTE | 2016-09-28 14:36 | Cardiology Progress Note ---
Shady Coreas Vanessa, RN, am scribing for, and in the presence of, Michelle Bond MD 14:36. Assessment and Plan - Time spent with patient Time spent with patient: Greater than 30 minutes (1) Hypertension Status: Chronic Assessment and plan: SEE PLAN OF CARE LISTED BELOW. Current Visit: Yes (2) CAD (coronary artery disease) Status: Chronic Assessment and plan: SEE PLAN OF CARE LISTED BELOW. Current Visit: Yes (3) CAD (coronary artery disease) of bypass graft Status: Chronic Assessment and plan: SEE PLAN OF CARE LISTED BELOW. Current Visit: Yes (4) History of coronary artery bypass graft x 3 Status: Chronic Assessment and plan: SEE PLAN OF CARE LISTED BELOW. Current Visit: Yes (5) Dyslipidemia Status: Chronic Assessment and plan: SEE PLAN OF CARE LISTED BELOW. Current Visit: Yes (6) History of carotid endarterectomy Status: Chronic Assessment and plan: SEE PLAN OF CARE LISTED BELOW. Current Visit: Yes (7) GERD (gastroesophageal reflux disease) Status: Chronic Assessment and plan: SEE PLAN OF CARE LISTED BELOW. Current Visit: Yes (8) History of carotid artery stenosis Status: Chronic Assessment and plan: SEE PLAN OF CARE LISTED BELOW. Current Visit: Yes (9) Atrial flutter with rapid ventricular response Status: Acute Assessment and plan: SEE PLAN OF CARE LISTED BELOW. Current Visit: Yes Cardiology - PN: Subj Interval history: PRIMARY FLEXIBLE NANNY: DR. WING SUMMARY: Mr. Goldberg is a 80 year old white male with risk factors significant for: age, hypertension, dyslipidemia, and previous history of CAD. He has never been a smoker. Patient is status post CABG x [address] Harris with SVG to LAD, SVG to OM, and SVG to PDA. He is a former patient of Dr. Hatch, and he had an abnormal but stable exercise cardiac stress test in April 2015 in the office which showed mixed inferolateral scar and ischemia with EF 55%. Patient had tolerated medical therapy well without anginal complaint. Mr. Goldberg was evaluated by Dr. Wing in clinic on September 19 as a work in for exertional chest pain with associated dyspnea and relieved with 3-5 minutes of rest. Due to clinical presentation and cardiac history, it was elected he undergo left heart catheterization to define coronary anatomy with percutaneous coronary intervention if necessary. Patient presented to [facility] on September 24 for elective cath per Dr. Wing. Cardiac cath revealed severe, high grade occlusive disease of all three saphenous vein grafts with significant myocardium at risk, EF 50% with mild global hypokinesis. After discussion with patient and family, Dr. Harris was consulted for redo CABG. Patient underwent redo coronary artery bypass grafting [address] Harris on September 26. September: Mr. Goldberg was transferred from ICU to telemetry yesterday afternoon. He had an uneventful overnight. This morning, however, he did develop atrial flutter with rapid ventricular response, rate 150s. He received IV Cardizem bolus and brief IV Cardizem infusion. He then received IV amiodarone bolus and infusion 0.5 mg/min. He is not having any chest pain, dyspnea, anginal complaint. He has since converted to regular rhythm, pulse 55-60. Upon exam, patient does report he has a very faint pain around right flank area extending midway down right thigh area, and cannot really describe it, and reports it waxes and wanes. BP checked at bedside upon exam, 115/58. Pacing wires intact, surgical incisions are intact and appear to be healing appropriately. Reports he has not had a bowel movement since Saturday, he is passing flatus, and he is concerned he may be a bit constipated. Labs reviewed. H&H stable. PLT 106, 000. Electrolytes within normal range. Renal function stable. Cardiac isoenzymes trending down appropriately. ASSESSMENT/PLAN: ASSESSMENT/PLAN: 1. CORONARY ARTERY DISEASE - Clinically stable at this time. Continue low dose ASA, JYOTSNA inhibitor, and statin. Beta jac currently being held due to bradycardia. 2. HISTORY OF CABG - Status post saphenous vein grafting x 3 in 1991 and now has been found to have severe occlusive disease of all 3 grafts. He is now POD # 2 s/p redo CABG x 3 with KIRK to Cx marginal, SVG to LAD, and SVG to RCA. Continue current plan of care. 3. HYPERTENSION -well controlled at this time. Continue current plan of care. 4. HYPERLIPIDEMIA - Continue rosuvastatin 20 mg PO nightly. FLP in clinic on August 10 unremarkable. 5. GERD - Continue PPI. 6. HISTORY OF CAROTID ARTERY STENOSIS - This was asymptomatic. He is now status post left CEA. No neurologic symptoms at this time. 7. ATRIAL FIB/FLUTTER WITH RVR -atrial flutter with RVR in 150s earlier this morning and receive IV Cardizem bolus with infusion. This was discontinued, and he was re-bolused with IV amiodarone and infusion started 0.5 mg/min. Currently decreased 0.25 mg/min. He did convert to regular rhythm, and pulse rate is 55. Due to recurrent paroxysms, he has also been placed on low-dose Eliquis for stroke prevention. Exam (Progress Note) - Constitutional Vitals: Period Temp Pulse Resp BP Sys/Lea Pulse Ox Last 24 Hr 97.9 F-99.3 F 78-180 16-20 99-146/55-78 95-99 Exam: General appearance: normal weight. no acute distress. pleasant and oriented x 3. - Head Head exam: Present: normal inspection. Absent: abrasion, contusion, hematoma, laceration - Eye Eye exam: Present: EOMI. Absent: periorbital swelling, scleral icterus Pupils: Present: ANGEL. Absent: dilated, fixed - ENT ENT exam: Present: normal external ear exam - Neck Neck exam: Present: normal inspection. Absent: tenderness - Respiratory Respiratory exam: Present: clear to auscultation bilaterally anteriorly. Absent : rales, rhonchi, stridor, wheezes - Cardiovascular Cardiovascular exam: Present: regular rhythm and rate, carotid bruit (bilateral) . Absent: irregular rhythm, JVD, systolic murmur, tachycardia - GI/Abdominal GI/Abdominal exam: Present: normal bowel sounds, soft. Absent: ascites, distended, firm, mass, tenderness - Extremities Exam Extremities exam: Present: normal inspection, normal capillary refill, full ROM. Absent: calf tenderness, edema - Neurological Exam Neurological exam: Present: grossly intact; no resting tremor - Psychiatric Psychiatric exam: Present: normal affect, normal mood. He does not appear anxious or depressed. - Skin Skin exam: Present: normal color, warm, dry. other (sternal incision and right lower leg incision are dry/intact with dressings in place). Absent: abrasion, cyanosis, diaphoretic, rash. Other: Pacing wires intact. Result/EKG - Labs CBC & BMP: 09/28/16 05:30 09/28/16 05:30 Lab Results: I have reviewed the past 24 hour labs Labs: Laboratory Results - last 24 hr 09/25/16 09/27/16 09/27/16 03:25 15:11 18:56 WBC RBC Hgb Hct MCV MCH MCHC RDW Plt Count MPV Neut % (Auto) Lymph % (Auto) [place] % (Auto) Eos % (Auto) Baso % (Auto) Neut # (Auto) Lymph # (Auto) [place] # (Auto) Eos # (Auto) Baso # (Auto) Immature Gran % Nucleated RBC % Immature Gran # Nucleated RBCs # Immature Plt Fraction Sodium Potassium Chloride Carbon Dioxide Anion Gap BUN Creatinine GFR Calculation BUN/Creatinine Ratio Glucose POC Glucose 203 H 181 H Calculated Osmolality Calcium Magnesium Total Bilirubin Direct Bilirubin Indirect Bilirubin AST ALT Alkaline Phosphatase Total Creatine Kinase CK-MB (CK-2) CK and CKMB Interp Troponin I Total Protein Albumin Globulin Albumin/Globulin Ratio Crossmatch See Detail 09/28/16 09/28/16 09/28/16 05:30 05:30 07:25 WBC 12.4 H RBC 3.33 L Hgb 9.6 L Hct 28.3 L MCV 85.0 L MCH 29 MCHC 33.9 RDW 14.5 Plt Count 106 L MPV 9.4 L Neut % (Auto) 85.8 H Lymph % (Auto) 6.1 L [place] % (Auto) 7.1 Eos % (Auto) 0.0 Baso % (Auto) 0.1 Neut # (Auto) 10.6 H Lymph # (Auto) 0.8 L [place] # (Auto) 0.9 H Eos # (Auto) 0.0 Baso # (Auto) 0.0 Immature Gran % 0.9 Nucleated RBC % 0.0 Immature Gran # 0.11 Nucleated RBCs # 0.00 Immature Plt Fraction 0.0 Sodium 140 Potassium 4.8 Chloride 108 H Carbon Dioxide 26 Anion Gap 10.8 BUN 24 H Creatinine 1.00 GFR Calculation 84 BUN/Creatinine Ratio 24.00 H Glucose 128 H POC Glucose 139 H Calculated Osmolality 284.4 Calcium 7.8 L Magnesium 2.4 Total Bilirubin 1.30 H Direct Bilirubin 0.20 Indirect Bilirubin 1.1 H AST 42 H ALT 16 Alkaline Phosphatase 33 L Total Creatine Kinase 363 H CK-MB (CK-2) 10.2 H D CK and CKMB Interp 2.8 Troponin I 3.250 H D Total Protein 4.6 L Albumin 2.9 L Globulin 1.7 L Albumin/Globulin Ratio 1.7 Crossmatch - EKG EKG results: interpreted by me, no acute changes EKG shows: sinus rhythm Quality Measures - VTE Contraindication to Pharmacological VTE Prophylaxis: High Risk of Bleeding Specialty Discharge - Follow Up or Referrals Varun Coreas Jennifer, MD, personally performed the services described in this documentation, ascribed by Maggie Caruso RN in my presence, and it is both accurate and complete .
[2016-09-28] MEDS: ROSUVASTATIN 20 MG TABLET PO SCH (22:58)
[2016-09-28] MEDS: ASPIRIN CHEW 81 MG TABLET PO SCH (22:58)
[2016-09-29] MEDS: KETOROLAC 30 MG/1 ML VIAL IV SCH ×4 (03:55→21:56)
[2016-09-29] MEDS: AMIODARONE INJ 450 MG in DEXTROSE 5% 241 ML IV SCH (04:57)
[2016-09-29 05:26] LABS: Basophils % 0.1 % (0.0-0.8); Eosinophils # 0.1 10*3/uL (0.0-0.87); Eosinophils % 0.5 % (0.00-10.9); Hematocrit 28.3 VOL% (42.0-52.0); Hemoglobin 9.4 GM/DL (14.0-18.0); Immature Granulocytes % 0.7 %; Immature Granulocytes Absolute 0.07 #; Lymphocytes # 1.1 10*3/uL (1.4-4.0); Lymphocytes % 11.4 % (21.2-54.2); Mean Corpuscular HGB Conc 33.2 GM/DL (32-36); Mean Corpuscular Hemoglobin 29 PG (27-34); Mean Corpuscular Volume 86.5 FL (87-102); Mean Platelet Volume 9.8 FL (9.6-12.0); Monocytes % 9.8 % (1.7-12.7); Neutrophils # 7.7 10*3/uL (1.4-7.4); Neutrophils % 77.5 % (38.7-73.9); Platelet Count 118 T/CUMM (130-400); Red Blood Count 3.27 MC/CUMM (3.8-5.5); Red Cell Distribution Width 14.6 % (9.3-17.3)
[2016-09-29 05:54] LABS: Calcium 7.6 MG/DL (8.5-10.1); Magnesium 2.7 MG/DL (1.8-2.4); Osmolality,Calculated 281.5 MOS/KG (273-304); Potassium 4.3 MMOL/L (3.5-5.1)
[2016-09-29 05:58] LABS: Albumin 2.9 G/DL (3.4-5.0); Bilirubin,Direct 0.2 MG/DL (0.0-0.20); Bilirubin,Indirect 0.6 MG/DL (0.0-1.0); Bilirubin,Total 0.8 MG/DL (0.2-1.0); Osmolality,Calculated 284.3 MOS/KG (273-304); Potassium 4.3 MMOL/L (3.5-5.1); Total Protein 4.6 G/DL (6.4-8.3)
[2016-09-29 06:07] LABS: Troponin I Only 4.53 NG/ML (0.00-0.045)
[2016-09-29] MEDS: FERROUS SULFATE 325 MG TABLET PO SCH (08:16)
[2016-09-29] MEDS: APIXABAN 2.5 MG TABLET PO SCH ×2 (08:16→21:56)
[2016-09-29] MEDS: AMIODARONE 200 MG TABLET PO SCH ×2 (08:16→21:57)
[2016-09-29] MEDS: LISINOPRIL/HCTZ 20-12.5 MG TABLET PO SCH (08:16)
[2016-09-29] MEDS: PANTOPRAZOLE 40 MG TABLET PO SCH (08:16)
[2016-09-29] MEDS: DOCUSATE SODIUM 100 MG CAPSULE PO SCH (08:16)
[2016-09-29] MEDS: FLUTICASONE 50 MCG NASAL SPRAY 16 GM BOTTLE BOTH NARES SCH (08:17)
[2016-09-29] MEDS: CHLORHEXIDINE 0.12% ORAL RINSE 60 ML BOTTLE SWISH/SPIT SCH ×2 (08:17→21:35)
--- NOTE | 2016-09-29 08:41 | Cardiothoracic Progress Note ---
Cardiothoracic Subjective Interval history: Patient looks and feels better. He converted to normal sinus rhythm yesterday shortly after the beginning of IV amiodarone. He has maintained normal sinus rhythm since then and I am going to switch him to p.o. amiodarone today. Otherwise his vital signs have been stable and he is breathing comfortably and he is ambulating without assistance. We will gradually increase his activity as tolerated. His laboratory work and chest x-ray are within normal limits for postoperative day 3. Exam (Progress Note) - Constitutional Vitals: Period Temp Pulse Resp BP Sys/Lea Pulse Ox Last 24 Hr 97.5 F-98.8 F 53-67 18-20 107-141/55-70 96-97 Result/EKG - Labs CBC & BMP: 09/29/16 04:23 09/29/16 04:23 Labs: Laboratory Results - last 24 hr 09/28/16 09/28/16 09/29/16 11:34 19:51 04:23 WBC RBC Hgb Hct MCV MCH MCHC RDW Plt Count MPV Neut % (Auto) Lymph % (Auto) [place] % (Auto) Eos % (Auto) Baso % (Auto) Neut # (Auto) Lymph # (Auto) [place] # (Auto) Eos # (Auto) Baso # (Auto) Immature Gran % Nucleated RBC % Immature Gran # Nucleated RBCs # Immature Plt Fraction Sodium 139 Potassium 4.3 Chloride 106 Carbon Dioxide 28 Anion Gap 9.3 BUN 25 H Creatinine 1.00 GFR Calculation 84 BUN/Creatinine Ratio 25.00 H Glucose 108 H POC Glucose 141 H 208 H Calculated Osmolality 281.5 Calcium 7.6 L Magnesium 2.7 H Total Bilirubin Direct Bilirubin Indirect Bilirubin AST ALT Alkaline Phosphatase Total Creatine Kinase CK-MB (CK-2) CK and CKMB Interp Troponin I Total Protein Albumin Globulin Albumin/Globulin Ratio 09/29/16 09/29/16 09/29/16 04:23 04:23 07:05 WBC 10.0 RBC 3.27 L Hgb 9.4 L Hct 28.3 L MCV 86.5 L MCH 29 MCHC 33.2 RDW 14.6 Plt Count 118 L MPV 9.8 Neut % (Auto) 77.5 H Lymph % (Auto) 11.4 L [place] % (Auto) 9.8 Eos % (Auto) 0.5 Baso % (Auto) 0.1 Neut # (Auto) 7.7 H Lymph # (Auto) 1.1 L [place] # (Auto) 1.0 H Eos # (Auto) 0.1 Baso # (Auto) 0.0 Immature Gran % 0.7 Nucleated RBC % 0.0 Immature Gran # 0.07 Nucleated RBCs # 0.00 Immature Plt Fraction 0.0 Sodium 141 Potassium 4.3 Chloride 106 Carbon Dioxide 28 Anion Gap 11.3 BUN 24 H Creatinine 1.00 GFR Calculation 84 BUN/Creatinine Ratio 24.00 H Glucose 102 POC Glucose 120 H Calculated Osmolality 284.3 Calcium 8.0 L Magnesium Total Bilirubin 0.80 Direct Bilirubin 0.20 Indirect Bilirubin 0.6 AST 45 H ALT 22 Alkaline Phosphatase 39 L Total Creatine Kinase 212 D CK-MB (CK-2) 8.4 H CK and CKMB Interp 4.0 Troponin I 4.530 H D Total Protein 4.6 L Albumin 2.9 L Globulin 1.7 L Albumin/Globulin Ratio 1.7 Quality Measures - VTE Contraindication to Pharmacological VTE Prophylaxis: High Risk of Bleeding Specialty Discharge - Follow Up or Referrals
--- NOTE | 2016-09-29 12:14 | XRay Report ---
History: Shortness of breath Date: 09/29/2016 Study: Chest x-ray AP portable Comparison exam: 09/28/2016 The right IJ central line is in stable satisfactory position. There is stable cardiomegaly. The mediastinal contours are unchanged in this patient status post prior median sternotomy. The pulmonary vasculature is not engorged. There is no pneumothorax. There is continued but slightly improved mild right basilar atelectasis. There is no new or worsening infiltrate. Exam is otherwise unchanged. Impression: Continued but slightly improved mild right basilar atelectasis. Otherwise unchanged PROCEDURE INTERPRETED AT [facility] DEPARTMENT OF RADIOLOGY Final Report Signed by: Dr. Gay Hernandez
--- NOTE | 2016-09-29 14:56 | Cardiology Progress Note ---
Assessment and Plan (1) Hypertension Status: Chronic Assessment and plan: SEE PLAN OF CARE LISTED BELOW. Current Visit: Yes (2) CAD (coronary artery disease) Status: Chronic Assessment and plan: SEE PLAN OF CARE LISTED BELOW. Current Visit: Yes (3) CAD (coronary artery disease) of bypass graft Status: Chronic Assessment and plan: SEE PLAN OF CARE LISTED BELOW. Current Visit: Yes (4) History of coronary artery bypass graft x 3 Status: Chronic Assessment and plan: SEE PLAN OF CARE LISTED BELOW. Current Visit: Yes (5) Dyslipidemia Status: Chronic Assessment and plan: SEE PLAN OF CARE LISTED BELOW. Current Visit: Yes (6) History of carotid endarterectomy Status: Chronic Assessment and plan: SEE PLAN OF CARE LISTED BELOW. Current Visit: Yes (7) GERD (gastroesophageal reflux disease) Status: Chronic Assessment and plan: SEE PLAN OF CARE LISTED BELOW. Current Visit: Yes (8) History of carotid artery stenosis Status: Chronic Assessment and plan: SEE PLAN OF CARE LISTED BELOW. Current Visit: Yes (9) Atrial flutter with rapid ventricular response Status: Acute Assessment and plan: SEE PLAN OF CARE LISTED BELOW. Current Visit: Yes Cardiology - PN: Subj Interval history: PRIMARY APPRAISER BOATS AND MARINE: DR. WING SUMMARY: Mr. Goldberg is a 80 year old white male with risk factors significant for: age, hypertension, dyslipidemia, and previous history of CAD. Patient is status post CABG x [address] Harris with SVG to LAD, SVG to OM, and SVG to PDA. Patient underwent elective cath per Dr. Wing 09/24 revealing severe, high grade occlusive disease of all three saphenous vein grafts with significant myocardium at risk, EF 50% with mild global hypokinesis. Patient underwent redo coronary artery bypass grafting [address] Harris on Saturday, September 26. He has had some postoperative paroxysmal atrial fibrillation. September 29, 2016: Overall evening was uneventful. He has converted back to sinus rhythm and has been changed to oral amiodarone. His breathing is improved, he has made 2 laps around the nurses station. He denies any chest pain. No acute complaints. ASSESSMENT/PLAN: 1. CORONARY ARTERY DISEASE - Clinically stable at this time. Continue low dose ASA, JYOTSNA inhibitor, and statin. Beta jac currently being held due to bradycardia. 2. HISTORY OF CABG - Status post saphenous vein grafting x 3 in 1991 and now has been found to have severe occlusive disease of all 3 grafts. He is now POD # 3 s/p redo CABG x 3 with KIRK to Cx marginal, SVG to LAD, and SVG to RCA. Continue current plan of care. 3. HYPERTENSION -well controlled at this time. Continue current plan of care. 4. HYPERLIPIDEMIA - Continue rosuvastatin 20 mg PO nightly. FLP in clinic on August 10 unremarkable. 5. GERD - Continue PPI. 6. HISTORY OF CAROTID ARTERY STENOSIS - This was asymptomatic. He is now status post left CEA. No neurologic symptoms at this time. 7. ATRIAL FIB/FLUTTER WITH RVR -he is now on amiodarone for rhythm control and on low-dose Eliquis for stroke prevention. Exam (Progress Note) - Constitutional Vitals: Period Temp Pulse Resp BP Sys/Lea Pulse Ox Last 24 Hr 97.5 F-98.9 F 53-67 18-20 109-153/55-70 96-97 Exam: General appearance: normal weight. no acute distress. pleasant and oriented x 3. - Head Head exam: Present: normal inspection. Absent: abrasion, contusion, hematoma, laceration - Eye Eye exam: Present: EOMI. Absent: periorbital swelling, scleral icterus Pupils: Present: ANGEL. Absent: dilated, fixed - ENT ENT exam: Present: normal external ear exam - Neck Neck exam: Present: normal inspection. Absent: tenderness - Respiratory Respiratory exam: Present: clear to auscultation bilaterally anteriorly. Absent : rales, rhonchi, stridor, wheezes - Cardiovascular Cardiovascular exam: Present: regular rhythm and rate. Absent: irregular rhythm , JVD, systolic murmur, tachycardia - GI/Abdominal GI/Abdominal exam: Present: normal bowel sounds, soft. Absent: ascites, distended, firm, mass, tenderness - Extremities Exam Extremities exam: Present: normal inspection, normal capillary refill, full ROM. Absent: calf tenderness, edema - Neurological Exam Neurological exam: Present: grossly intact; no resting tremor - Psychiatric Psychiatric exam: Present: normal affect, normal mood. He does not appear anxious or depressed. - Skin Skin exam: Present: normal color, warm, dry. other (sternal incision and right lower leg incision are dry/intact with dressings in place). Absent: abrasion, cyanosis, diaphoretic, rash. Result/EKG - Labs CBC & BMP: 09/29/16 04:23 09/29/16 04:23 Lab Results: I have reviewed the past 24 hour labs Labs: Laboratory Results - last 24 hr 09/28/16 09/29/16 09/29/16 19:51 04:23 04:23 WBC 10.0 RBC 3.27 L Hgb 9.4 L Hct 28.3 L MCV 86.5 L MCH 29 MCHC 33.2 RDW 14.6 Plt Count 118 L MPV 9.8 Neut % (Auto) 77.5 H Lymph % (Auto) 11.4 L [place] % (Auto) 9.8 Eos % (Auto) 0.5 Baso % (Auto) 0.1 Neut # (Auto) 7.7 H Lymph # (Auto) 1.1 L [place] # (Auto) 1.0 H Eos # (Auto) 0.1 Baso # (Auto) 0.0 Immature Gran % 0.7 Nucleated RBC % 0.0 Immature Gran # 0.07 Nucleated RBCs # 0.00 Immature Plt Fraction 0.0 Sodium 139 Potassium 4.3 Chloride 106 Carbon Dioxide 28 Anion Gap 9.3 BUN 25 H Creatinine 1.00 GFR Calculation 84 BUN/Creatinine Ratio 25.00 H Glucose 108 H POC Glucose 208 H Calculated Osmolality 281.5 Calcium 7.6 L Magnesium 2.7 H Total Bilirubin Direct Bilirubin Indirect Bilirubin AST ALT Alkaline Phosphatase Total Creatine Kinase CK-MB (CK-2) CK and CKMB Interp Troponin I Total Protein Albumin Globulin Albumin/Globulin Ratio 09/29/16 09/29/16 09/29/16 04:23 07:05 11:01 WBC RBC Hgb Hct MCV MCH MCHC RDW Plt Count MPV Neut % (Auto) Lymph % (Auto) [place] % (Auto) Eos % (Auto) Baso % (Auto) Neut # (Auto) Lymph # (Auto) [place] # (Auto) Eos # (Auto) Baso # (Auto) Immature Gran % Nucleated RBC % Immature Gran # Nucleated RBCs # Immature Plt Fraction Sodium 141 Potassium 4.3 Chloride 106 Carbon Dioxide 28 Anion Gap 11.3 BUN 24 H Creatinine 1.00 GFR Calculation 84 BUN/Creatinine Ratio 24.00 H Glucose 102 POC Glucose 120 H 126 H Calculated Osmolality 284.3 Calcium 8.0 L Magnesium Total Bilirubin 0.80 Direct Bilirubin 0.20 Indirect Bilirubin 0.6 AST 45 H ALT 22 Alkaline Phosphatase 39 L Total Creatine Kinase 212 D CK-MB (CK-2) 8.4 H CK and CKMB Interp 4.0 Troponin I 4.530 H D Total Protein 4.6 L Albumin 2.9 L Globulin 1.7 L Albumin/Globulin Ratio 1.7 Quality Measures - VTE Contraindication to Pharmacological VTE Prophylaxis: High Risk of Bleeding Specialty Discharge - Follow Up or Referrals
[2016-09-29] MEDS: ASPIRIN CHEW 81 MG TABLET PO SCH (21:56)
[2016-09-29] MEDS: ROSUVASTATIN 20 MG TABLET PO SCH (21:56)
[2016-09-30] MEDS: KETOROLAC 30 MG/1 ML VIAL IV SCH (03:14)
[2016-09-30 05:20] LABS: Basophils % 0.2 % (0.0-0.8); Eosinophils # 0.4 10*3/uL (0.0-0.87); Eosinophils % 4.3 % (0.00-10.9); Hemoglobin 9.7 GM/DL (14.0-18.0); Immature Granulocytes % 0.8 %; Immature Granulocytes Absolute 0.07 #; Lymphocytes # 1.3 10*3/uL (1.4-4.0); Lymphocytes % 15.5 % (21.2-54.2); Mean Corpuscular HGB Conc 33.4 GM/DL (32-36); Mean Corpuscular Hemoglobin 29 PG (27-34); Mean Corpuscular Volume 86.6 FL (87-102); Mean Platelet Volume 9.1 FL (9.6-12.0); Monocytes # 0.6 10*3/uL (0.11-0.8); Monocytes % 7.6 % (1.7-12.7); Neutrophils % 71.6 % (38.7-73.9); Platelet Count 132 T/CUMM (130-400); Red Blood Count 3.35 MC/CUMM (3.8-5.5); Red Cell Distribution Width 14.2 % (9.3-17.3); White Blood Count 8.4 T/CUMM (4-12)
[2016-09-30 05:46] LABS: Calcium 8.1 MG/DL (8.5-10.1); Magnesium 2.5 MG/DL (1.8-2.4); Osmolality,Calculated 285.1 MOS/KG (273-304); Potassium 4.5 MMOL/L (3.5-5.1)
--- NOTE | 2016-09-30 08:06 | Cardiothoracic Progress Note ---
Cardiothoracic Subjective Interval history: Patient seems to be recovering well. He has been ambulating without assistance. Vital signs are stable and he has maintained normal sinus rhythm. He is breathing comfortably. I think he probably will be ready for discharge in the next day or 2. Exam (Progress Note) - Constitutional Vitals: Period Temp Pulse Resp BP Sys/Lea Pulse Ox Last 24 Hr 97.6 F-99.7 F 56-62 12-20 119-153/57-78 94-99 Result/EKG - Labs CBC & BMP: 09/30/16 04:01 09/30/16 04:01 Labs: Laboratory Results - last 24 hr 09/29/16 09/29/16 09/29/16 11:01 15:24 21:52 WBC RBC Hgb Hct MCV MCH MCHC RDW Plt Count MPV Neut % (Auto) Lymph % (Auto) [place] % (Auto) Eos % (Auto) Baso % (Auto) Neut # (Auto) Lymph # (Auto) [place] # (Auto) Eos # (Auto) Baso # (Auto) Immature Gran % Nucleated RBC % Immature Gran # Nucleated RBCs # Immature Plt Fraction Sodium Potassium Chloride Carbon Dioxide Anion Gap BUN Creatinine GFR Calculation BUN/Creatinine Ratio Glucose POC Glucose 126 H 102 164 H Calculated Osmolality Calcium Magnesium 09/30/16 09/30/16 04:01 04:01 WBC 8.4 RBC 3.35 L Hgb 9.7 L Hct 29.0 L MCV 86.6 L MCH 29 MCHC 33.4 RDW 14.2 Plt Count 132 MPV 9.1 L Neut % (Auto) 71.6 Lymph % (Auto) 15.5 L [place] % (Auto) 7.6 Eos % (Auto) 4.3 Baso % (Auto) 0.2 Neut # (Auto) 6.0 Lymph # (Auto) 1.3 L [place] # (Auto) 0.6 Eos # (Auto) 0.4 Baso # (Auto) 0.0 Immature Gran % 0.8 Nucleated RBC % 0.0 Immature Gran # 0.07 Nucleated RBCs # 0.00 Immature Plt Fraction 0.0 Sodium 142 Potassium 4.5 Chloride 108 H Carbon Dioxide 29 Anion Gap 9.5 BUN 20 H Creatinine 0.90 GFR Calculation 96 BUN/Creatinine Ratio 22.00 H Glucose 92 POC Glucose Calculated Osmolality 285.1 Calcium 8.1 L Magnesium 2.5 H Quality Measures - VTE Contraindication to Pharmacological VTE Prophylaxis: High Risk of Bleeding Specialty Discharge - Follow Up or Referrals
[2016-09-30] MEDS: FLUTICASONE 50 MCG NASAL SPRAY 16 GM BOTTLE BOTH NARES SCH (09:27)
[2016-09-30] MEDS: AMIODARONE 200 MG TABLET PO SCH ×2 (09:27→20:16)
[2016-09-30] MEDS: FERROUS SULFATE 325 MG TABLET PO SCH (09:27)
[2016-09-30] MEDS: DOCUSATE SODIUM 100 MG CAPSULE PO SCH (09:27)
[2016-09-30] MEDS: CHLORHEXIDINE 0.12% ORAL RINSE 60 ML BOTTLE SWISH/SPIT SCH ×2 (09:27→20:26)
[2016-09-30] MEDS: PANTOPRAZOLE 40 MG TABLET PO SCH (09:27)
[2016-09-30] MEDS: LISINOPRIL/HCTZ 20-12.5 MG TABLET PO SCH (09:27)
[2016-09-30] MEDS: APIXABAN 2.5 MG TABLET PO SCH ×2 (09:27→20:16)
--- NOTE | 2016-09-30 12:46 | Cardiology Progress Note ---
Assessment and Plan (1) Hypertension Status: Chronic Assessment and plan: SEE PLAN OF CARE LISTED BELOW. Current Visit: Yes (2) CAD (coronary artery disease) Status: Chronic Assessment and plan: SEE PLAN OF CARE LISTED BELOW. Current Visit: Yes (3) CAD (coronary artery disease) of bypass graft Status: Chronic Assessment and plan: SEE PLAN OF CARE LISTED BELOW. Current Visit: Yes (4) History of coronary artery bypass graft x 3 Status: Chronic Assessment and plan: SEE PLAN OF CARE LISTED BELOW. Current Visit: Yes (5) Dyslipidemia Status: Chronic Assessment and plan: SEE PLAN OF CARE LISTED BELOW. Current Visit: Yes (6) History of carotid endarterectomy Status: Chronic Assessment and plan: SEE PLAN OF CARE LISTED BELOW. Current Visit: Yes (7) GERD (gastroesophageal reflux disease) Status: Chronic Assessment and plan: SEE PLAN OF CARE LISTED BELOW. Current Visit: Yes (8) History of carotid artery stenosis Status: Chronic Assessment and plan: SEE PLAN OF CARE LISTED BELOW. Current Visit: Yes (9) Atrial flutter with rapid ventricular response Status: Acute Assessment and plan: SEE PLAN OF CARE LISTED BELOW. Current Visit: Yes Cardiology - PN: Subj Interval history: PRIMARY PROCESS IMPROVEMENT SPECIALIST: DR. WING SUMMARY: Mr. Goldberg is a 80 year old white male with risk factors significant for: age, hypertension, dyslipidemia, and previous history of CAD. Patient is status post CABG x [address] Harris with SVG to LAD, SVG to OM, and SVG to PDA. Patient underwent elective cath per Dr. Wing 09/24 revealing severe, high grade occlusive disease of all three saphenous vein grafts with significant myocardium at risk, EF 50% with mild global hypokinesis. Patient underwent redo coronary artery bypass grafting [address] Harris on Saturday, September 26. He has had some postoperative paroxysmal atrial fibrillation. September 29, 2016: Overall evening was uneventful. He has converted back to sinus rhythm and has been changed to oral amiodarone. His breathing is improved, he has made 2 laps around the nurses station. He denies any chest pain. No acute complaints. September 30, 2016: Evening uneventful, he continues to feel well, improving, active. No chest pain or acute complaints. ASSESSMENT/PLAN: 1. CORONARY ARTERY DISEASE - Clinically stable at this time. Continue low dose ASA, JYOTSNA inhibitor, and statin. Beta jac currently being held due to bradycardia. 2. HISTORY OF CABG - Status post saphenous vein grafting x 3 in 1991 and now has been found to have severe occlusive disease of all 3 grafts. He is now POD # 3 s/p redo CABG x 3 with KIRK to Cx marginal, SVG to LAD, and SVG to RCA. Continue current plan of care. 3. HYPERTENSION -well controlled at this time. Continue current plan of care. 4. HYPERLIPIDEMIA - Continue rosuvastatin 20 mg PO nightly. FLP in clinic on August 10 unremarkable. 5. GERD - Continue PPI. 6. HISTORY OF CAROTID ARTERY STENOSIS - This was asymptomatic. He is now status post left CEA. No neurologic symptoms at this time. 7. ATRIAL FIB/FLUTTER WITH RVR -he is now on amiodarone for rhythm control and on low-dose Eliquis for stroke prevention. Currently in sinus rhythm. Exam (Progress Note) - Constitutional Vitals: Period Temp Pulse Resp BP Sys/Lea Pulse Ox Last 24 Hr 97.6 F-99.7 F 56-62 12-20 116-153/57-78 94-99 Exam: General appearance: normal weight. no acute distress. pleasant and oriented x 3. - Head Head exam: Present: normal inspection. Absent: abrasion, contusion, hematoma, laceration - Eye Eye exam: Present: EOMI. Absent: periorbital swelling, scleral icterus Pupils: Present: ANGEL. Absent: dilated, fixed - ENT ENT exam: Present: normal external ear exam - Neck Neck exam: Present: normal inspection. Absent: tenderness - Respiratory Respiratory exam: Present: clear to auscultation bilaterally anteriorly. Absent : rales, rhonchi, stridor, wheezes - Cardiovascular Cardiovascular exam: Present: regular rhythm and rate. Absent: irregular rhythm , JVD, systolic murmur, tachycardia - GI/Abdominal GI/Abdominal exam: Present: normal bowel sounds, soft. Absent: ascites, distended, firm, mass, tenderness - Extremities Exam Extremities exam: Present: normal inspection, normal capillary refill, full ROM. Absent: calf tenderness, edema - Neurological Exam Neurological exam: Present: grossly intact; no resting tremor - Psychiatric Psychiatric exam: Present: normal affect, normal mood. He does not appear anxious or depressed. - Skin Skin exam: Present: normal color, warm, dry. other (sternal incision and right lower leg incision are dry/intact with dressings in place). Absent: abrasion, cyanosis, diaphoretic, rash. Result/EKG - Labs CBC & BMP: 09/30/16 04:01 09/30/16 04:01 Lab Results: I have reviewed the past 24 hour labs Labs: Laboratory Results - last 24 hr 09/29/16 09/29/16 09/30/16 15:24 21:52 04:01 WBC 8.4 RBC 3.35 L Hgb 9.7 L Hct 29.0 L MCV 86.6 L MCH 29 MCHC 33.4 RDW 14.2 Plt Count 132 MPV 9.1 L Neut % (Auto) 71.6 Lymph % (Auto) 15.5 L [place] % (Auto) 7.6 Eos % (Auto) 4.3 Baso % (Auto) 0.2 Neut # (Auto) 6.0 Lymph # (Auto) 1.3 L [place] # (Auto) 0.6 Eos # (Auto) 0.4 Baso # (Auto) 0.0 Immature Gran % 0.8 Nucleated RBC % 0.0 Immature Gran # 0.07 Nucleated RBCs # 0.00 Immature Plt Fraction 0.0 Sodium Potassium Chloride Carbon Dioxide Anion Gap BUN Creatinine GFR Calculation BUN/Creatinine Ratio Glucose POC Glucose 102 164 H Calculated Osmolality Calcium Magnesium 09/30/16 04:01 WBC RBC Hgb Hct MCV MCH MCHC RDW Plt Count MPV Neut % (Auto) Lymph % (Auto) [place] % (Auto) Eos % (Auto) Baso % (Auto) Neut # (Auto) Lymph # (Auto) [place] # (Auto) Eos # (Auto) Baso # (Auto) Immature Gran % Nucleated RBC % Immature Gran # Nucleated RBCs # Immature Plt Fraction Sodium 142 Potassium 4.5 Chloride 108 H Carbon Dioxide 29 Anion Gap 9.5 BUN 20 H Creatinine 0.90 GFR Calculation 96 BUN/Creatinine Ratio 22.00 H Glucose 92 POC Glucose Calculated Osmolality 285.1 Calcium 8.1 L Magnesium 2.5 H Quality Measures - VTE Contraindication to Pharmacological VTE Prophylaxis: High Risk of Bleeding Specialty Discharge - Follow Up or Referrals
[2016-09-30] MEDS: ZALEPLON 5 MG CAPSULE PO PRN (20:16)
[2016-09-30] MEDS: ASPIRIN CHEW 81 MG TABLET PO SCH (20:16)
[2016-09-30] MEDS: ROSUVASTATIN 20 MG TABLET PO SCH (20:16)
[2016-10-01 04:45] LABS: Basophils % 0.2 % (0.0-0.8); Eosinophils # 0.4 10*3/uL (0.0-0.87); Eosinophils % 4.2 % (0.00-10.9); Hematocrit 30.4 VOL% (42.0-52.0); Hemoglobin 10.3 GM/DL (14.0-18.0); Immature Granulocytes % 1.1 %; Lymphocytes # 1.2 10*3/uL (1.4-4.0); Lymphocytes % 14.2 % (21.2-54.2); Mean Corpuscular HGB Conc 33.9 GM/DL (32-36); Mean Corpuscular Hemoglobin 29 PG (27-34); Mean Corpuscular Volume 85.4 FL (87-102); Mean Platelet Volume 8.6 FL (9.6-12.0); Monocytes # 0.8 10*3/uL (0.11-0.8); Monocytes % 8.6 % (1.7-12.7); Neutrophils # 6.3 10*3/uL (1.4-7.4); Neutrophils % 71.7 % (38.7-73.9); Platelet Count 152 T/CUMM (130-400); Red Blood Count 3.56 MC/CUMM (3.8-5.5); Red Cell Distribution Width 14.1 % (9.3-17.3); White Blood Count 8.8 T/CUMM (4-12)
[2016-10-01 05:12] LABS: Calcium 8.4 MG/DL (8.5-10.1); Magnesium 2.3 MG/DL (1.8-2.4); Osmolality,Calculated 279.4 MOS/KG (273-304); Potassium 4.2 MMOL/L (3.5-5.1)
[2016-10-01 05:17] LABS: Alanine Aminotransferase 25 U/L (16-61); Albumin 2.9 G/DL (3.4-5.0); Alkaline Phosphatase 51 U/L (45-117); Aspartate Amino Transferase 26 U/L (0-37); Bilirubin,Indirect 0.7 MG/DL (0.0-1.0); Blood Urea Nitrogen 16 MG/DL (7-18); Calcium 8.3 MG/DL (8.5-10.1); Glucose 94 MG/DL (74-106); Osmolality,Calculated 277.5 MOS/KG (273-304); Potassium 4.1 MMOL/L (3.5-5.1); Sodium 139 MMOL/L (136-145); Total Protein 4.8 G/DL (6.4-8.3)
--- NOTE | 2016-10-01 06:14 | Cardiothoracic Progress Note ---
Cardiothoracic Subjective Interval history: Patient does not feel quite as well this morning. He has no specific complaints other than some serosanguineous drainage from his left chest tube site. I think we will keep him for at least 1 more day in the hospital. I discontinued his pacing wires. We will encourage him to increase his activity some and I do suspect that he will be ready to go tomorrow. Exam (Progress Note) - Constitutional Vitals: Period Temp Pulse Resp BP Sys/Lea Pulse Ox Last 24 Hr 97.6 F-99.7 F 60-72 16-20 116-148/59-79 92-97 Result/EKG - Labs CBC & BMP: 10/01/16 04:15 10/01/16 04:15 Labs: Laboratory Results - last 24 hr 09/30/16 10/01/16 10/01/16 19:55 04:15 04:15 WBC 8.8 RBC 3.56 L Hgb 10.3 L Hct 30.4 L MCV 85.4 L MCH 29 MCHC 33.9 RDW 14.1 Plt Count 152 MPV 8.6 L Neut % (Auto) 71.7 Lymph % (Auto) 14.2 L [place] % (Auto) 8.6 Eos % (Auto) 4.2 Baso % (Auto) 0.2 Neut # (Auto) 6.3 Lymph # (Auto) 1.2 L [place] # (Auto) 0.8 Eos # (Auto) 0.4 Baso # (Auto) 0.0 Immature Gran % 1.1 Nucleated RBC % 0.0 Immature Gran # 0.10 Nucleated RBCs # 0.00 Immature Plt Fraction 0.0 Sodium 140 Potassium 4.2 Chloride 106 Carbon Dioxide 29 Anion Gap 9.2 BUN 16 Creatinine 0.90 GFR Calculation 96 BUN/Creatinine Ratio 17.00 Glucose 92 POC Glucose 161 H Calculated Osmolality 279.4 Calcium 8.4 L Magnesium 2.3 Total Bilirubin Direct Bilirubin Indirect Bilirubin AST ALT Alkaline Phosphatase Total Creatine Kinase CK-MB (CK-2) Troponin I Total Protein Albumin Globulin Albumin/Globulin Ratio 10/01/16 04:15 WBC RBC Hgb Hct MCV MCH MCHC RDW Plt Count MPV Neut % (Auto) Lymph % (Auto) [place] % (Auto) Eos % (Auto) Baso % (Auto) Neut # (Auto) Lymph # (Auto) [place] # (Auto) Eos # (Auto) Baso # (Auto) Immature Gran % Nucleated RBC % Immature Gran # Nucleated RBCs # Immature Plt Fraction Sodium 139 Potassium 4.1 Chloride 106 Carbon Dioxide 29 Anion Gap 8.1 BUN 16 Creatinine 0.90 GFR Calculation 96 BUN/Creatinine Ratio 17.00 Glucose 94 POC Glucose Calculated Osmolality 277.5 Calcium 8.3 L Magnesium Total Bilirubin 1.00 Direct Bilirubin 0.30 H Indirect Bilirubin 0.7 AST 26 ALT 25 Alkaline Phosphatase 51 Total Creatine Kinase 62 D CK-MB (CK-2) 1.8 D Troponin I 1.430 H D Total Protein 4.8 L Albumin 2.9 L Globulin 1.9 L Albumin/Globulin Ratio 1.5 Quality Measures - VTE Contraindication to Pharmacological VTE Prophylaxis: High Risk of Bleeding Specialty Discharge - Follow Up or Referrals
--- NOTE | 2016-10-01 08:14 | XRay Report ---
2 view chest. Indication: Shortness of breath. Comparison: September 29, 2016. The heart is normal in size. Post median sternotomy. Subcutaneous emphysema has developed over the left thorax. There is persistent elevation of the right hemidiaphragm. There are small bilateral pleural effusions. Post median sternotomy. Right IJ line is in satisfactory position. Impression: Basilar atelectasis and pleural effusion. Development of left subcutaneous emphysema. PROCEDURE INTERPRETED AT [facility] DEPARTMENT OF RADIOLOGY Final Report Signed by: Dr. Marizol Davalos
[2016-10-01] MEDS: AMIODARONE 200 MG TABLET PO SCH ×2 (09:34→20:41)
[2016-10-01] MEDS: APIXABAN 2.5 MG TABLET PO SCH ×2 (09:34→20:41)
[2016-10-01] MEDS: DOCUSATE SODIUM 100 MG CAPSULE PO SCH (09:34)
[2016-10-01] MEDS: FERROUS SULFATE 325 MG TABLET PO SCH (09:34)
[2016-10-01] MEDS: PANTOPRAZOLE 40 MG TABLET PO SCH (09:34)
[2016-10-01] MEDS: LISINOPRIL/HCTZ 20-12.5 MG TABLET PO SCH (09:34)
[2016-10-01] MEDS: FLUTICASONE 50 MCG NASAL SPRAY 16 GM BOTTLE BOTH NARES SCH (09:35)
[2016-10-01] MEDS: CHLORHEXIDINE 0.12% ORAL RINSE 60 ML BOTTLE SWISH/SPIT SCH ×2 (10:16→20:42)
[2016-10-01] MEDS: MAGNESIUM HYDROXIDE SUSP 30 ML UDCUP PO PRN (10:29)
--- NOTE | 2016-10-01 10:31 | Cardiology Progress Note ---
Shady Coreas Vanessa, RN, am scribing for, and in the presence of, Dinesh Pugh MD 10 :29. Assessment and Plan - Time spent with patient Time spent with patient: Greater than 30 minutes (1) Status post coronary artery bypass grafting Status: Acute Assessment and plan: 80-year-old white male with PMHx hypertension, dyslipidemia, CAD with previous CABG 1991. He was admitted for [facility] on 09/24 due to exertional angina and was subsequently found to have severe disease of all 3 bypass grafts. Underwent redo CABG on 09/[address] Harris. He has had some paroxysmal atrial fibrillation, atrial flutter with RVR. Has previously received IV Cardizem and IV amiodarone , converted to sinus rhythm, and is being maintained on PO amiodarone. ASSESSMENT/PLAN: 1. CORONARY ARTERY DISEASE - Clinically stable at this time. Continue low dose ASA, JYOTSNA inhibitor, and statin. Beta jac was held due to previous bradycardia in 40s-50s. 2. HISTORY OF CABG - Status post saphenous vein grafting x 3 in 1991 and now has been found to have severe occlusive disease of all 3 grafts. He is now POD # 5 s/p redo CABG x 3 with KIRK to Cx marginal, SVG to LAD, and SVG to RCA. Continue current plan of care. 3. HYPERTENSION -well controlled at this time. Continue current plan of care. 4. HYPERLIPIDEMIA - Continue rosuvastatin 20 mg PO nightly. FLP in clinic on August 10 unremarkable. 5. GERD - Continue PPI. 6. HISTORY OF CAROTID ARTERY STENOSIS - This was asymptomatic. He is now status post left CEA. No neurologic symptoms at this time. 7. ATRIAL FIB/FLUTTER WITH RVR -continue p.o. amiodarone 200 mg twice daily. Start metoprolol 50 mg twice daily. If symptomatic bradycardia limits rate/ rhythm control, he would need a dual-chamber pacemaker. Continue anticoagulation with Eliquis. Agree with low dose. Clinically, he is not symptomatic from pericarditis or tamponade. recheck EKG. Current Visit: Yes (2) Hypertension Status: Chronic Assessment and plan: SEE PLAN OF CARE LISTED ABOVE. Current Visit: Yes (3) CAD (coronary artery disease) Status: Chronic Assessment and plan: SEE PLAN OF CARE LISTED ABOVE. Current Visit: Yes (4) CAD (coronary artery disease) of bypass graft Status: Chronic Assessment and plan: SEE PLAN OF CARE LISTED ABOVE. Current Visit: Yes (5) History of coronary artery bypass graft x 3 Status: Chronic Assessment and plan: SEE PLAN OF CARE LISTED ABOVE. Current Visit: Yes (6) Dyslipidemia Status: Chronic Assessment and plan: SEE PLAN OF CARE LISTED ABOVE. Current Visit: Yes (7) History of carotid endarterectomy Status: Chronic Assessment and plan: SEE PLAN OF CARE LISTED ABOVE. Current Visit: Yes (8) GERD (gastroesophageal reflux disease) Status: Chronic Assessment and plan: SEE PLAN OF CARE LISTED ABOVE. Current Visit: Yes (9) History of carotid artery stenosis Status: Chronic Assessment and plan: SEE PLAN OF CARE LISTED ABOVE. Current Visit: Yes (10) Atrial flutter with rapid ventricular response Status: Acute Assessment and plan: SEE PLAN OF CARE LISTED ABOVE. Current Visit: Yes Cardiology - PN: Subj Interval history: PRIMARY WAREHOUSE STOCK CLERK: DR. WING SUMMARY: Mr. Goldberg is a 80 year old white male with risk factors significant for: age, hypertension, dyslipidemia, and previous history of CAD. Patient is status post CABG x [address] Harris with SVG to LAD, SVG to OM, and SVG to PDA. Patient underwent elective cath per Dr. Wing 09/24 revealing severe, high grade occlusive disease of all three saphenous vein grafts with significant myocardium at risk, EF 50% with mild global hypokinesis. Patient underwent redo coronary artery bypass grafting [address] Harris on Saturday, September 26. He has had some postoperative paroxysmal atrial fibrillation. Transferred to telemetry unit on September 27. September: On Saturday, patient developed some recurrent atrial flutter with RVR and required IV amiodarone. He has since converted to sinus rhythm and was transitioned to oral amiodarone. He was also started on low-dose Eliquis for stroke prevention. Over the weekend, he has continued have some brief self sustained episodes of atrial fib RVR with ventricular response 170-180. He has been increasing his physical activity and ambulating in the hallways. He does have some postoperative chest wall soreness but is not having chest pain or dyspnea. Reports he does not feel as well this morning as he has over the last couple days and complains of some drainage from left chest tube site since removal. Low-grade temp overnight, 99.7F max. Patient will be observed today and overnight, and tentatively planned for discharge home tomorrow. Chest x-ray shows minimal left subcutaneous emphysema. The right TLC terminates at the level of the SVC/RA junction. Cardiac contour is of normal size. Exam (Progress Note) - Constitutional Vitals: Period Temp Pulse Resp BP Sys/Lea Pulse Ox Last 24 Hr 97.6 F-99.7 F 62-72 16-20 133-148/63-79 92-97 General appearance: normal weight, no acute distress - Head Head exam: Present: normal inspection, normocephalic - Eye Eye exam: Absent: conjunctival injection, scleral icterus, laceration to eyelids Pupils: Absent: dilated - ENT ENT exam: Present: other (R TLC) - Neck Neck exam: Present: normal inspection - Respiratory Respiratory exam: Present: decreased breath sounds. Absent: rales, rhonchi - Cardiovascular Cardiovascular exam: Present: regular rate and rhythm, other (Sternal incision dry). Absent: irregular rhythm, JVD, systolic murmur - GI/Abdominal GI/Abdominal exam: Present: normal bowel sounds. Absent: distended - Extremities Exam Extremities exam: Present: normal inspection, normal capillary refill, other ( Right leg incision dry). Absent: edema - Back Exam Back exam: Present: normal inspection - Neurological Exam Neurological exam: Present: alert, oriented X3 - Psychiatric Psychiatric exam: Present: normal affect, normal mood - Skin Skin exam: Present: normal color, warm. Absent: cyanosis Result/EKG - Labs CBC & BMP: 10/01/16 04:15 10/01/16 04:15 Lab Results: I have reviewed the past 24 hour labs Labs: Laboratory Results - last 24 hr 09/30/16 10/01/16 10/01/16 19:55 04:15 04:15 WBC 8.8 RBC 3.56 L Hgb 10.3 L Hct 30.4 L MCV 85.4 L MCH 29 MCHC 33.9 RDW 14.1 Plt Count 152 MPV 8.6 L Neut % (Auto) 71.7 Lymph % (Auto) 14.2 L [place] % (Auto) 8.6 Eos % (Auto) 4.2 Baso % (Auto) 0.2 Neut # (Auto) 6.3 Lymph # (Auto) 1.2 L [place] # (Auto) 0.8 Eos # (Auto) 0.4 Baso # (Auto) 0.0 Immature Gran % 1.1 Nucleated RBC % 0.0 Immature Gran # 0.10 Nucleated RBCs # 0.00 Immature Plt Fraction 0.0 Sodium 140 Potassium 4.2 Chloride 106 Carbon Dioxide 29 Anion Gap 9.2 BUN 16 Creatinine 0.90 GFR Calculation 96 BUN/Creatinine Ratio 17.00 Glucose 92 POC Glucose 161 H Calculated Osmolality 279.4 Calcium 8.4 L Magnesium 2.3 Total Bilirubin Direct Bilirubin Indirect Bilirubin AST ALT Alkaline Phosphatase Total Creatine Kinase CK-MB (CK-2) Troponin I Total Protein Albumin Globulin Albumin/Globulin Ratio 10/01/16 10/01/16 04:15 07:13 WBC RBC Hgb Hct MCV MCH MCHC RDW Plt Count MPV Neut % (Auto) Lymph % (Auto) [place] % (Auto) Eos % (Auto) Baso % (Auto) Neut # (Auto) Lymph # (Auto) [place] # (Auto) Eos # (Auto) Baso # (Auto) Immature Gran % Nucleated RBC % Immature Gran # Nucleated RBCs # Immature Plt Fraction Sodium 139 Potassium 4.1 Chloride 106 Carbon Dioxide 29 Anion Gap 8.1 BUN 16 Creatinine 0.90 GFR Calculation 96 BUN/Creatinine Ratio 17.00 Glucose 94 POC Glucose 107 H Calculated Osmolality 277.5 Calcium 8.3 L Magnesium Total Bilirubin 1.00 Direct Bilirubin 0.30 H Indirect Bilirubin 0.7 AST 26 ALT 25 Alkaline Phosphatase 51 Total Creatine Kinase 62 D CK-MB (CK-2) 1.8 D Troponin I 1.430 H D Total Protein 4.8 L Albumin 2.9 L Globulin 1.9 L Albumin/Globulin Ratio 1.5 - Diagnostic Findings Procedure: Chest x-ray: image reviewed by me, report reviewed by me (10/01/16: By basilar atelectasis with small pleural effusion; development of left subcutaneous emphysema) - EKG EKG results: interpreted by me, no acute changes Quality Measures - VTE Contraindication to Pharmacological VTE Prophylaxis: High Risk of Bleeding Specialty Discharge - Follow Up or Referrals Lexy Coreas Attila, MD, personally performed the services described in this documentation, ascribed by Maggie Caruso RN in my presence, and it is both accurate and complete .
[2016-10-01] MEDS: METOPROLOL TARTRATE 50 MG TABLET PO SCH ×2 (11:10→20:41)
--- NOTE | 2016-10-01 12:40 | EKG Report ---
Stationary ECG Study [facility] Test Date: 10/01/2016 12:41:08 PM Pat Name: JUAN BAKER Department: Room: 262 Gender: M Aoc Operations Intelligence Officer: : 1935 Requested by: Chuy Pugh Order Number: [id number] Reading MD: CHUY PUGH Intervals [place] Rate: 56 P: 57 VA: 168 QRS: 74 QRSD: 154 T: 40 QT: 466 QTc: 459 Interpretive Statements SINUS RHYTHM RIGHT BUNDLE BRANCH BLOCK Electronically Signed On 10-01-16 14:47:01 CDT by CHUY PUGH [email or web address]
[2016-10-01] MEDS: ASPIRIN CHEW 81 MG TABLET PO SCH (20:41)
[2016-10-01] MEDS: ROSUVASTATIN 20 MG TABLET PO SCH (20:41)
[2016-10-01] MEDS: ZALEPLON 5 MG CAPSULE PO PRN (23:02)
[2016-10-02] MEDS: ZALEPLON 5 MG CAPSULE PO PRN (01:42)
[2016-10-02 06:04] LABS: Basophils % 0.3 % (0.0-0.8); Eosinophils # 0.6 10*3/uL (0.0-0.87); Eosinophils % 6.1 % (0.00-10.9); Hematocrit 29.7 VOL% (42.0-52.0); Hemoglobin 9.8 GM/DL (14.0-18.0); Immature Granulocytes % 1.8 %; Immature Granulocytes Absolute 0.17 #; Lymphocytes # 1.6 10*3/uL (1.4-4.0); Mean Corpuscular Hemoglobin 29 PG (27-34); Mean Corpuscular Volume 86.8 FL (87-102); Mean Platelet Volume 8.7 FL (9.6-12.0); Monocytes % 11.1 % (1.7-12.7); Neutrophils # 5.9 10*3/uL (1.4-7.4); Neutrophils % 63.7 % (38.7-73.9); Platelet Count 179 T/CUMM (130-400); Red Blood Count 3.42 MC/CUMM (3.8-5.5); Red Cell Distribution Width 14.3 % (9.3-17.3); White Blood Count 9.3 T/CUMM (4-12)
[2016-10-02 06:41] LABS: Alanine Aminotransferase 25 U/L (16-61); Albumin 2.7 G/DL (3.4-5.0); Alkaline Phosphatase 49 U/L (45-117); Aspartate Amino Transferase 26 U/L (0-37); Bilirubin,Indirect 1.1 MG/DL (0.0-1.0); Blood Urea Nitrogen 14 MG/DL (7-18); Calcium 8.1 MG/DL (8.5-10.1); Glucose 88 MG/DL (74-106); Magnesium 2.4 MG/DL (1.8-2.4); Osmolality,Calculated 276.5 MOS/KG (273-304); Potassium 4.3 MMOL/L (3.5-5.1); Sodium 139 MMOL/L (136-145); Total Protein 4.7 G/DL (6.4-8.3)
--- NOTE | 2016-10-02 07:31 | EKG Report ---
Stationary ECG Study [facility] Test Date: 10/02/2016 7:29:42 AM Pat Name: JUAN BAKER Department: Room: 262 Gender: M Tube Skiver: RUSTAM : 1935 Requested by: Margarito Zepeda Order Number: [id number] Reading MD: JUAN RAMON DE PAZ Intervals [place] Rate: 66 P: 51 SC: 164 QRS: 76 QRSD: 147 T: 29 QT: 456 QTc: 470 Interpretive Statements SINUS RHYTHM INDETERMINATE AXIS RIGHT BUNDLE BRANCH BLOCK Electronically Signed On 10-02-16 07:52:16 CDT by JUAN RAMON DE PAZ [email or web address]
--- NOTE | 2016-10-02 07:58 | XRay Report ---
XR chest 2V Indication: Shortness of breath Comparison: 01 October 2016 Findings: The heart and mediastinum are stable in size and configuration. Right internal jugular catheters unchanged in position. There is subcutaneous emphysema, similar to previous exam. The pulmonary vascularity is normal in caliber. No lung infiltrates, effusions, pneumothorax or other abnormality is demonstrated. Impression: No significant changes. PROCEDURE INTERPRETED AT [facility] DEPARTMENT OF RADIOLOGY Final Report Signed by: Dr. Adrian Perera
[2016-10-02 08:08] VITALS: BP 133/64
--- NOTE | 2016-10-02 08:16 | Discharge Summary ---
Hospital Course - Hospital Course Hospital Course: History of present illness: Patient is a 80-year-old man who underwent coronary bypass surgery approximately 25 years ago at which time grafts were placed to the anterior descending circumflex marginal and right coronary arteries. He had done well until recently when he began to have recurrent chest pain and underwent cardiac catheterization demonstrating critical disease and all of his bypass grafts. His [place] circulation is essentially occluded proximally and all of his cardiac circulation is provided by bypass grafts. He was referred for repeat bypass surgery. Past medical history is significant because of previous bypass surgery but otherwise the patient has been relatively free of serious medical and surgical illnesses. Remainder of his past medical history review of systems social history and family history are documented in his admission notes. Hospital course: Patient was taken to surgery and three-vessel bypass grafting was carried out with an internal mammary graft to the anterior descending coronary artery and saphenous vein graft to the circumflex marginal and right coronary arteries. Patient tolerated procedure well and his recovery was essentially uncomplicated except for periods of atrial fibrillation controlled with amiodarone. The patient was in sinus rhythm at the time of discharge but was discharged on oral amiodarone as well as Eliquis for anticoagulation. Hopefully these can be discontinued early in his postoperative course. Patient is to return for follow-up in 1 week for staple removal and his discharge medications are listed below. Specialty Discharge - Follow Up or Referrals Discharge Plan - Discharge Medications No Action Rosuvastatin Calcium 20 mg PO BEDTIME Albuterol Inhaler [Proventil Inhaler] 2 puff INH Q4-6H PRN PRN Reason: Shortness Of Breath Omeprazole 20 mg PO DAILY Lisinopril/Hydrochlorothiazide [Lisinopril-Hctz 20-12.5 mg Tab] 1 each PO DAILY Fluticasone 50 Mcg Nasal [place] [Flonase Nasal [place]] 1 spray BOTH NARES DAILY Aspirin 81 mg PO BEDTIME [place] 1,200 mg PO DAILY Sildenafil Citrate [Viagra] 100 mg PO DAILY PRN PRN Reason: Erectile Dysfunction Atenolol 25 mg PO DAILY - Follow Up or Referral - Forms/Instructions Instructions: Coronary Artery Bypass Graft (DC), Heart Healthy Diet (GEN), Sternal Precautions (GEN) Exam - Constitutional Vitals: Period Temp Pulse Resp BP Sys/Lea Pulse Ox Last 24 Hr 98.2 F-100.3 F 55-83 16-20 84-133/40-64 92-98 Discharge Results Procedures and tests throughout hospitalization: Pending Orders 09/25/16 03:25 Fresh Frozen Plasma IN AM Red Blood Cells Leuko Red IN AM Single Donor Platelets IN AM Type and Screen IN AM Labs on day of discharge: Labs from last 24 hours 10/02/16 10/02/16 10/01/16 05:26 05:26 21:09 WBC 9.3 RBC 3.42 L Hgb 9.8 L Hct 29.7 L MCV 86.8 L MCH 29 MCHC 33.0 RDW 14.3 Plt Count 179 MPV 8.7 L Neut % (Auto) 63.7 Lymph % (Auto) 17.0 L [place] % (Auto) 11.1 Eos % (Auto) 6.1 Baso % (Auto) 0.3 Neut # (Auto) 5.9 Lymph # (Auto) 1.6 [place] # (Auto) 1.0 H Eos # (Auto) 0.6 Baso # (Auto) 0.0 Immature Gran % 1.8 Nucleated RBC % 0.0 Immature Gran # 0.17 Nucleated RBCs # 0.00 Immature Plt Fraction 0.0 Sodium 139 Potassium 4.3 Chloride 105 Carbon Dioxide 28 Anion Gap 10.3 BUN 14 Creatinine 0.90 GFR Calculation 94 BUN/Creatinine Ratio 15.00 Glucose 88 POC Glucose 120 H Calculated Osmolality 276.5 Calcium 8.1 L Magnesium 2.4 Total Bilirubin 1.30 H Direct Bilirubin 0.20 Indirect Bilirubin 1.1 H AST 26 ALT 25 Alkaline Phosphatase 49 Total Creatine Kinase 39 D CK-MB (CK-2) 1.6 Troponin I 0.720 H D Total Protein 4.7 L Albumin 2.7 L Globulin 2.0 L Albumin/Globulin Ratio 1.3 10/01/16 10/01/16 15:35 11:25 WBC RBC Hgb Hct MCV MCH MCHC RDW Plt Count MPV Neut % (Auto) Lymph % (Auto) [place] % (Auto) Eos % (Auto) Baso % (Auto) Neut # (Auto) Lymph # (Auto) [place] # (Auto) Eos # (Auto) Baso # (Auto) Immature Gran % Nucleated RBC % Immature Gran # Nucleated RBCs # Immature Plt Fraction Sodium Potassium Chloride Carbon Dioxide Anion Gap BUN Creatinine GFR Calculation BUN/Creatinine Ratio Glucose POC Glucose 104 188 H Calculated Osmolality Calcium Magnesium Total Bilirubin Direct Bilirubin Indirect Bilirubin AST ALT Alkaline Phosphatase Total Creatine Kinase CK-MB (CK-2) Troponin I Total Protein Albumin Globulin Albumin/Globulin Ratio DS: Provider Date of admission: 09/24/16 09:19 Primary care physician: . No PCP Attending physician on admission: Margarito Harris MD Consults: 09/24/16 09:19 Consult to Dietitian [CONS] Routine Reason for Dietitian: Other Consult Comment: low salt, low cholesterol, diet 09/27/16 08:25 Consult to Cardiac Rehabilitation [CONS] Routine Reason for Cardiac Rehabilitation: Other Consult Comment: Post CABG/heart surgery Consult to Diabetes Center, Educator [CONS] Routine Reason for Nurse Tech: Diabetes Education Initial Insulin Education Consult Comment: insulin education Consult to Dietitian [CONS] Routine Reason for Dietitian: Dietary Consult Consult Comment: Cardiac, low salt, low cholesterol diet Consult to Physical Therapy [CONS] Routine Reason for Physical Therapy: Other Consult Comment: CV Rehab Discharging clinician: Margarito Harris MD Expected date of discharge: 10/02/16
--- NOTE | 2016-10-02 08:21 | Discharge Summary ---
Hospital Course - Hospital Course Hospital Course: History of present illness: Patient is a 80-year-old man who underwent coronary bypass surgery approximately 25 years ago at which time grafts were placed to the anterior descending circumflex marginal and right coronary arteries. He had done well until recently when he began to have recurrent chest pain and underwent cardiac catheterization demonstrating critical disease and all of his bypass grafts. His [place] circulation is essentially occluded proximally and all of his cardiac circulation is provided by bypass grafts. He was referred for repeat bypass surgery. Past medical history is significant because of previous bypass surgery but otherwise the patient has been relatively free of serious medical and surgical illnesses. Remainder of his past medical history review of systems social history and family history are documented in his admission notes. Hospital course: Patient was taken to surgery and three-vessel bypass grafting was carried out with an internal mammary graft to the anterior descending coronary artery and saphenous vein graft to the circumflex marginal and right coronary arteries. Patient tolerated procedure well and his recovery was essentially uncomplicated except for periods of atrial fibrillation controlled with amiodarone. The patient was in sinus rhythm at the time of discharge but was discharged on oral amiodarone as well as Eliquis for anticoagulation. Hopefully these can be discontinued early in his postoperative course. Patient is to return for follow-up in 1 week for staple removal and his discharge medications are listed below. Specialty Discharge - Follow Up or Referrals Follow up with: Margarito Harris MD [Physician] - 1 Week Discharge Plan - Discharge Data Disposition: Disch To Home/Self Care Condition at Discharge: Stable Discharge Diet: advance to your usual diet Activity: resume usual activities as tolerated Hygiene: no restrictions Weight Bearing at Discharge: full weight bearing Driving: not until seen by doctor - Discharge Medications New Amiodarone Tab [Cordarone Tab] 200 mg PO BID #60 tablet Apixaban [Eliquis] 2.5 mg PO BID #60 tablet oxyCODONE/ACETAMINOPHEN 5-325 [Percocet 5-325] 1 tablet PO Q4H PRN tablet PRN Reason: Pain Mild (1-3) Continue Rosuvastatin Calcium 20 mg PO BEDTIME Albuterol Inhaler [Proventil Inhaler] 2 puff INH Q4-6H PRN PRN Reason: Shortness Of Breath Omeprazole 20 mg PO DAILY Lisinopril/Hydrochlorothiazide [Lisinopril-Hctz 20-12.5 mg Tab] 1 each PO DAILY Fluticasone 50 Mcg Nasal [place] [Flonase Nasal [place]] 1 spray BOTH NARES DAILY Aspirin 81 mg PO BEDTIME [place] 1,200 mg PO DAILY Sildenafil Citrate [Viagra] 100 mg PO DAILY PRN PRN Reason: Erectile Dysfunction Atenolol 25 mg PO DAILY - Follow Up or Referral - Forms/Instructions Instructions: Coronary Artery Bypass Graft (DC), Heart Healthy Diet (GEN), Sternal Precautions (GEN) Exam - Constitutional Vitals: Period Temp Pulse Resp BP Sys/Lea Pulse Ox Last 24 Hr 98.2 F-100.3 F 55-83 16-20 84-133/40-64 92-98 Discharge Results Procedures and tests throughout hospitalization: Pending Orders 09/25/16 03:25 Fresh Frozen Plasma IN AM Red Blood Cells Leuko Red IN AM Single Donor Platelets IN AM Type and Screen IN AM Labs on day of discharge: Labs from last 24 hours 10/02/16 10/02/16 10/02/16 08:02 05:26 05:26 WBC 9.3 RBC 3.42 L Hgb 9.8 L Hct 29.7 L MCV 86.8 L MCH 29 MCHC 33.0 RDW 14.3 Plt Count 179 MPV 8.7 L Neut % (Auto) 63.7 Lymph % (Auto) 17.0 L [place] % (Auto) 11.1 Eos % (Auto) 6.1 Baso % (Auto) 0.3 Neut # (Auto) 5.9 Lymph # (Auto) 1.6 [place] # (Auto) 1.0 H Eos # (Auto) 0.6 Baso # (Auto) 0.0 Immature Gran % 1.8 Nucleated RBC % 0.0 Immature Gran # 0.17 Nucleated RBCs # 0.00 Immature Plt Fraction 0.0 Sodium 139 Potassium 4.3 Chloride 105 Carbon Dioxide 28 Anion Gap 10.3 BUN 14 Creatinine 0.90 GFR Calculation 94 BUN/Creatinine Ratio 15.00 Glucose 88 POC Glucose 110 H Calculated Osmolality 276.5 Calcium 8.1 L Magnesium 2.4 Total Bilirubin 1.30 H Direct Bilirubin 0.20 Indirect Bilirubin 1.1 H AST 26 ALT 25 Alkaline Phosphatase 49 Total Creatine Kinase 39 D CK-MB (CK-2) 1.6 Troponin I 0.720 H D Total Protein 4.7 L Albumin 2.7 L Globulin 2.0 L Albumin/Globulin Ratio 1.3 10/01/16 10/01/16 10/01/16 21:09 15:35 11:25 WBC RBC Hgb Hct MCV MCH MCHC RDW Plt Count MPV Neut % (Auto) Lymph % (Auto) [place] % (Auto) Eos % (Auto) Baso % (Auto) Neut # (Auto) Lymph # (Auto) [place] # (Auto) Eos # (Auto) Baso # (Auto) Immature Gran % Nucleated RBC % Immature Gran # Nucleated RBCs # Immature Plt Fraction Sodium Potassium Chloride Carbon Dioxide Anion Gap BUN Creatinine GFR Calculation BUN/Creatinine Ratio Glucose POC Glucose 120 H 104 188 H Calculated Osmolality Calcium Magnesium Total Bilirubin Direct Bilirubin Indirect Bilirubin AST ALT Alkaline Phosphatase Total Creatine Kinase CK-MB (CK-2) Troponin I Total Protein Albumin Globulin Albumin/Globulin Ratio DS: Provider Date of admission: 09/24/16 09:19 Primary care physician: . No PCP Attending physician on admission: Margarito Harris MD Consults: 09/24/16 09:19 Consult to Dietitian [CONS] Routine Reason for Dietitian: Other Consult Comment: low salt, low cholesterol, diet 09/27/16 08:25 Consult to Cardiac Rehabilitation [CONS] Routine Reason for Cardiac Rehabilitation: Other Consult Comment: Post CABG/heart surgery Consult to Diabetes Center, Educator [CONS] Routine Reason for Theology Teacher: Diabetes Education Initial Insulin Education Consult Comment: insulin education Consult to Dietitian [CONS] Routine Reason for Dietitian: Dietary Consult Consult Comment: Cardiac, low salt, low cholesterol diet Consult to Physical Therapy [CONS] Routine Reason for Physical Therapy: Other Consult Comment: CV Rehab Discharging clinician: Margarito Harris MD
[2016-10-02] MEDS: CHLORHEXIDINE 0.12% ORAL RINSE 60 ML BOTTLE SWISH/SPIT SCH (08:30)
[2016-10-02] MEDS: FERROUS SULFATE 325 MG TABLET PO SCH (08:30)
[2016-10-02] MEDS: FLUTICASONE 50 MCG NASAL SPRAY 16 GM BOTTLE BOTH NARES SCH (08:30)
[2016-10-02] MEDS: AMIODARONE 200 MG TABLET PO SCH (08:31)
[2016-10-02] MEDS: METOPROLOL TARTRATE 50 MG TABLET PO SCH (08:31)
[2016-10-02] MEDS: LISINOPRIL/HCTZ 20-12.5 MG TABLET PO SCH (08:31)
[2016-10-02] MEDS: APIXABAN 2.5 MG TABLET PO SCH (08:31)
[2016-10-02] MEDS: PANTOPRAZOLE 40 MG TABLET PO SCH (08:31)
[2016-10-02] MEDS: DOCUSATE SODIUM 100 MG CAPSULE PO SCH (08:31)
--- NOTE | 2016-10-02 16:53 | Cardiology Progress Note ---
Assessment and Plan (1) Status post coronary artery bypass grafting Status: Acute Assessment and plan: 80-year-old white male with PMHx hypertension, dyslipidemia, CAD with previous CABG 1991. He was admitted for [facility] on 09/24 due to exertional angina and was subsequently found to have severe disease of all 3 bypass grafts. Underwent redo CABG on 09/[address] Harris. He has had some paroxysmal atrial fibrillation, atrial flutter with RVR. Has previously received IV Cardizem and IV amiodarone , converted to sinus rhythm, and is being maintained on PO amiodarone. ASSESSMENT/PLAN: 1. CORONARY ARTERY DISEASE - Clinically stable at this time. Continue low dose ASA, JYOTSNA inhibitor, and statin. 2. HISTORY OF CABG - Status post saphenous vein grafting x 3 in 1991 and now has been found to have severe occlusive disease of all 3 grafts. He is now POD # 5 s/p redo CABG x 3 with KIRK to Cx marginal, SVG to LAD, and SVG to RCA. Continue current plan of care. 3. HYPERTENSION -well controlled at this time. Continue current plan of care. 4. HYPERLIPIDEMIA - Continue rosuvastatin 20 mg PO nightly. FLP in clinic on August 10 unremarkable. 5. GERD - Continue PPI. 6. HISTORY OF CAROTID ARTERY STENOSIS - This was asymptomatic. He is now status post left CEA. No neurologic symptoms at this time. 7. ATRIAL FIB/FLUTTER WITH RVR -continue p.o. amiodarone 200 mg twice daily. Start metoprolol 50 mg twice daily. If symptomatic bradycardia limits rate/ rhythm control, he would need a dual-chamber pacemaker. Continue anticoagulation with Eliquis. Agree with low dose. Clinically, he is not symptomatic from pericarditis or tamponade. recheck EKG. He will need to follow-up with Dr. Wing. (2) Hypertension Status: Chronic Assessment and plan: SEE PLAN OF CARE LISTED ABOVE. (3) CAD (coronary artery disease) Status: Chronic Assessment and plan: SEE PLAN OF CARE LISTED ABOVE. (4) CAD (coronary artery disease) of bypass graft Status: Chronic Assessment and plan: SEE PLAN OF CARE LISTED ABOVE. (5) History of coronary artery bypass graft x 3 Status: Chronic Assessment and plan: SEE PLAN OF CARE LISTED ABOVE. (6) Dyslipidemia Status: Chronic Assessment and plan: SEE PLAN OF CARE LISTED ABOVE. (7) History of carotid endarterectomy Status: Chronic Assessment and plan: SEE PLAN OF CARE LISTED ABOVE. (8) GERD (gastroesophageal reflux disease) Status: Chronic Assessment and plan: SEE PLAN OF CARE LISTED ABOVE. (9) History of carotid artery stenosis Status: Chronic Assessment and plan: SEE PLAN OF CARE LISTED ABOVE. (10) Atrial flutter with rapid ventricular response Status: Acute Assessment and plan: SEE PLAN OF CARE LISTED ABOVE. Cardiology - PN: Subj Interval history: This is a late note. Saw patient around 9 AM. He is feeling fine Right triple-lumen is still in place. Sinus rhythm on telemetry. Exam (Progress Note) - Constitutional Vitals: Period Temp Pulse Resp BP Sys/Lea Pulse Ox Last 24 Hr 98.2 F-100.3 F 55-83 16-20 84-133/40-64 92-98 General appearance: normal weight, no acute distress - Head Head exam: Present: normal inspection, normocephalic - Eye Eye exam: Absent: conjunctival injection, scleral icterus Pupils: Absent: normal accommodation - ENT ENT exam: Present: normal external ear exam - Neck Neck exam: Present: normal inspection - Respiratory Respiratory exam: Present: decreased breath sounds. Absent: rhonchi, wheezes - Cardiovascular Cardiovascular exam: Present: regular rate and rhythm. Absent: systolic murmur - GI/Abdominal GI/Abdominal exam: Present: normal bowel sounds, distended - Extremities Exam Extremities exam: Present: normal inspection, normal capillary refill - Back Exam Back exam: Present: normal inspection - Neurological Exam Neurological exam: Present: alert, oriented X3 - Psychiatric Psychiatric exam: Present: normal affect, normal mood - Skin Skin exam: Present: normal color, warm. Absent: cyanosis Result/EKG - Labs CBC & BMP: 10/02/16 05:26 10/02/16 05:26 Lab Results: I have reviewed the past 24 hour labs Labs: Laboratory Results - last 24 hr 10/01/16 10/02/16 10/02/16 21:09 05:26 05:26 WBC 9.3 RBC 3.42 L Hgb 9.8 L Hct 29.7 L MCV 86.8 L MCH 29 MCHC 33.0 RDW 14.3 Plt Count 179 MPV 8.7 L Neut % (Auto) 63.7 Lymph % (Auto) 17.0 L Barber % (Auto) 11.1 Eos % (Auto) 6.1 Baso % (Auto) 0.3 Neut # (Auto) 5.9 Lymph # (Auto) 1.6 Barber # (Auto) 1.0 H Eos # (Auto) 0.6 Baso # (Auto) 0.0 Immature Gran % 1.8 Nucleated RBC % 0.0 Immature Gran # 0.17 Nucleated RBCs # 0.00 Immature Plt Fraction 0.0 Sodium 139 Potassium 4.3 Chloride 105 Carbon Dioxide 28 Anion Gap 10.3 BUN 14 Creatinine 0.90 GFR Calculation 94 BUN/Creatinine Ratio 15.00 Glucose 88 POC Glucose 120 H Calculated Osmolality 276.5 Calcium 8.1 L Magnesium 2.4 Total Bilirubin 1.30 H Direct Bilirubin 0.20 Indirect Bilirubin 1.1 H AST 26 ALT 25 Alkaline Phosphatase 49 Total Creatine Kinase 39 D CK-MB (CK-2) 1.6 Troponin I 0.720 H D Total Protein 4.7 L Albumin 2.7 L Globulin 2.0 L Albumin/Globulin Ratio 1.3 10/02/16 08:02 WBC RBC Hgb Hct MCV MCH MCHC RDW Plt Count MPV Neut % (Auto) Lymph % (Auto) Barber % (Auto) Eos % (Auto) Baso % (Auto) Neut # (Auto) Lymph # (Auto) Barber # (Auto) Eos # (Auto) Baso # (Auto) Immature Gran % Nucleated RBC % Immature Gran # Nucleated RBCs # Immature Plt Fraction Sodium Potassium Chloride Carbon Dioxide Anion Gap BUN Creatinine GFR Calculation BUN/Creatinine Ratio Glucose POC Glucose 110 H Calculated Osmolality Calcium Magnesium Total Bilirubin Direct Bilirubin Indirect Bilirubin AST ALT Alkaline Phosphatase Total Creatine Kinase CK-MB (CK-2) Troponin I Total Protein Albumin Globulin Albumin/Globulin Ratio - EKG EKG results: interpreted by me Quality Measures - VTE Contraindication to Pharmacological VTE Prophylaxis: High Risk of Bleeding Specialty Discharge - Follow Up or Referrals Follow up with: Margarito Harris MD [Physician] - 10/09/16 10:15 am
== END 2016-10-02 10:48 | disposition home or self-care (01) | DRG 234 ==
LOC: N.CL 05:59 → N.TELEN 09:19 → N.CVR 09-26 07:21 → N.TELES 09-27 11:45
PROVIDERS: ATTEND Internal Medicine Cardiovascular Disease

== ENCOUNTER 2017-11-02 12:49 | Inpatient (IN) ==
[2017-11-02 13:29] LABS: Basophils # 0.1 10*3/uL (0.0-0.2); Basophils % 0.4 % (0.0-0.8); Hematocrit 41.4 VOL% (42.0-52.0); Immature Granulocytes % 0.8 %; Immature Granulocytes Absolute 0.13 #; Lymphocytes # 0.9 10*3/uL (1.4-4.0); Lymphocytes % 5.2 % (21.2-54.2); Mean Corpuscular HGB Conc 33.8 GM/DL (32-36); Mean Corpuscular Hemoglobin 29 PG (27-34); Mean Corpuscular Volume 85.5 FL (87-102); Mean Platelet Volume 8.5 FL (9.6-12.0); Monocytes # 1.6 10*3/uL (0.11-0.8); Monocytes % 9.4 % (1.7-12.7); Neutrophils # 14.2 10*3/uL (1.4-7.4); Neutrophils % 84.2 % (38.7-73.9); Platelet Count 129 T/CUMM (130-400); Red Blood Count 4.84 MC/CUMM (3.8-5.5); Red Cell Distribution Width 14.7 % (9.3-17.3); White Blood Count 16.8 T/CUMM (4-12)
[2017-11-02] MEDS ORDERED: VANCOMYCIN INJ 1,000 MG in SODIUM CHLORIDE 0.9% 250 ML IV STA (13:35)
[2017-11-02] MEDS ORDERED: SODIUM CHLORIDE 0.9% 1,000 ML IV STA ×2 (13:35→16:23)
[2017-11-02] MEDS ORDERED: VANCOMYCIN 1,000 MG VIAL ONE (13:47)
[2017-11-02 13:51] LABS: Lactic Acid 1.3 MMOL/L (0.4-2.0)
[2017-11-02 13:53] LABS: Alanine Aminotransferase 16 U/L (16-61); Albumin 3.2 G/DL (3.4-5.0); Alkaline Phosphatase 51 U/L (45-117); Aspartate Amino Transferase 20 U/L (0-37); Blood Urea Nitrogen 24 MG/DL (7-18); Calcium 8.4 MG/DL (8.5-10.1); Glucose 120 MG/DL (74-106); Osmolality,Calculated 274.1 MOS/KG (273-304); Potassium 3.9 MMOL/L (3.5-5.1); Sodium 135 MMOL/L (136-145); Total Protein 6.3 G/DL (6.4-8.3)
[2017-11-02 13:57] LABS: Troponin I 0.233 NG/ML (0.00-0.045)
[2017-11-02 14:43] LABS: Apearance,Urine CLEAR (Clear); Bilirubin,Urine Negative (Negative); Blood, Urine Negative (Negative); Glucose,Urine (UA) Negative (Negative); Ketones,Urine Negative (Negative); Mucus,Urine Occasional /LPF (Occasional); Nitrite,Urine Negative (Negative); Protein,Urine Negative; RBC,Urine 2 /HPF (0-4); Urine Color Yellow (Yellow); Urine Specific Gravity 1.016 (1.001-1.035); WBC,Urine <1 /HPF (0-6)
[2017-11-02] MEDS ORDERED: cefTRIAXone 1,000 MG in SODIUM CHLORIDE 0.9% 100 ML IV STA (16:01)
[2017-11-02] MEDS ORDERED: ONDANSETRON 4 MG/2 ML VIAL IV PRN (16:09)
[2017-11-02] MEDS ORDERED: NITROGLYCERIN SL 0.4 MG TABLET SL STA (16:12)
[2017-11-02] MEDS ORDERED: ALBUTEROL 2.5 MG/3 ML NEB RESP TX PRN (16:15)
[2017-11-02 18:05] LABS: Troponin I 0.202 NG/ML (0.00-0.045)
[2017-11-02] MEDS ORDERED: NITROGLYCERIN SL 0.4 MG TABLET SL PRN (18:36)
[2017-11-02] MEDS: SODIUM CHLORIDE 0.9% 1,000 ML IV SCH (19:08)
[2017-11-02 20:22] LABS: Troponin I 0.193 NG/ML (0.00-0.045)
[2017-11-02] MEDS: ENOXAPARIN 40 MG/0.4 ML SYRINGE SUBCUT SCH (20:58)
[2017-11-02] MEDS: ASPIRIN CHEW 81 MG TABLET PO SCH (20:58)
[2017-11-02] MEDS: ROSUVASTATIN 20 MG TABLET PO SCH (20:58)
[2017-11-02] MEDS: DOCUSATE SODIUM 100 MG CAPSULE PO SCH (20:59)
[2017-11-02 22:42] LABS: Troponin I 0.149 NG/ML (0.00-0.045)
[2017-11-03] MEDS: SODIUM CHLORIDE 0.9% 1,000 ML IV SCH ×4 (00:38→19:21)
[2017-11-03] MEDS: ACETAMINOPHEN 325 MG TABLET PO PRN ×2 (00:45→17:20)
[2017-11-03 01:47] LABS: Albumin 2.5 G/DL (3.4-5.0); Bilirubin,Total 1.2 MG/DL (0.2-1.0); Calcium 7.3 MG/DL (8.5-10.1); Osmolality,Calculated 278.7 MOS/KG (273-304); Potassium 3.6 MMOL/L (3.5-5.1); Risk Ratio 2.88; Total Protein 5.1 G/DL (6.4-8.3); VLDL CHOLESTEROL 20.4 MG/DL
[2017-11-03 01:48] LABS: Troponin I 0.111 NG/ML (0.00-0.045)
[2017-11-03] MEDS: VANCOMYCIN INJ 1,250 MG in SODIUM CHLORIDE 0.9% 250 ML IV SCH (06:25)
[2017-11-03] MEDS: DOCUSATE SODIUM 100 MG CAPSULE PO SCH ×2 (08:46→22:05)
[2017-11-03] MEDS: ATENOLOL 25 MG TABLET PO SCH (08:46)
[2017-11-03] MEDS: PANTOPRAZOLE 40 MG TABLET PO SCH (08:46)
[2017-11-03 13:43] LABS: Basophils # 0.1 10*3/uL (0.0-0.2); Basophils % 0.4 % (0.0-0.8); Eosinophils % 0.3 % (0.00-10.9); Hematocrit 37.2 VOL% (42.0-52.0); Hemoglobin 12.3 GM/DL (14.0-18.0); Immature Granulocytes % 0.5 %; Immature Granulocytes Absolute 0.06 #; Lymphocytes # 0.9 10*3/uL (1.4-4.0); Lymphocytes % 7.6 % (21.2-54.2); Mean Corpuscular HGB Conc 33.1 GM/DL (32-36); Mean Corpuscular Hemoglobin 29 PG (27-34); Mean Corpuscular Volume 86.5 FL (87-102); Mean Platelet Volume 8.6 FL (9.6-12.0); Monocytes # 0.9 10*3/uL (0.11-0.8); Monocytes % 7.5 % (1.7-12.7); Neutrophils # 9.5 10*3/uL (1.4-7.4); Neutrophils % 83.7 % (38.7-73.9); Platelet Count 119 T/CUMM (130-400); Red Cell Distribution Width 14.6 % (9.3-17.3); White Blood Count 11.4 T/CUMM (4-12)
[2017-11-03] MEDS: cefTRIAXone 1,000 MG in SYRINGE 1 EACH IV SCH (16:53)
[2017-11-03] MEDS: ENOXAPARIN 40 MG/0.4 ML SYRINGE SUBCUT SCH (22:04)
[2017-11-03] MEDS: ROSUVASTATIN 20 MG TABLET PO SCH (22:04)
[2017-11-03] MEDS: ASPIRIN CHEW 81 MG TABLET PO SCH (22:05)
[2017-11-04] MEDS: SODIUM CHLORIDE 0.9% 1,000 ML IV SCH ×4 (00:51→17:40)
[2017-11-04] MEDS: VANCOMYCIN INJ 1,250 MG in SODIUM CHLORIDE 0.9% 250 ML IV SCH ×2 (01:03→18:46)
[2017-11-04 04:47] LABS: Basophils % 0.2 % (0.0-0.8); Eosinophils # 0.1 10*3/uL (0.0-0.87); Eosinophils % 0.6 % (0.00-10.9); Hematocrit 31.1 VOL% (42.0-52.0); Hemoglobin 10.5 GM/DL (14.0-18.0); Immature Granulocytes Absolute 0.09 #; Lymphocytes # 0.8 10*3/uL (1.4-4.0); Lymphocytes % 8.7 % (21.2-54.2); Mean Corpuscular HGB Conc 33.8 GM/DL (32-36); Mean Corpuscular Hemoglobin 28 PG (27-34); Mean Corpuscular Volume 83.8 FL (87-102); Mean Platelet Volume 8.7 FL (9.6-12.0); Monocytes # 0.7 10*3/uL (0.11-0.8); Monocytes % 7.5 % (1.7-12.7); Neutrophils # 7.3 10*3/uL (1.4-7.4); Platelet Count 100 T/CUMM (130-400); Red Blood Count 3.71 MC/CUMM (3.8-5.5); Red Cell Distribution Width 14.5 % (9.3-17.3); White Blood Count 8.9 T/CUMM (4-12)
[2017-11-04 05:08] LABS: Burr Cells Slight; Microcytosis Slight; Platelet Estimate Decreased
[2017-11-04 05:23] LABS: Osmolality,Calculated 288.6 MOS/KG (273-304); Potassium 2.8 MMOL/L (3.5-5.1)
[2017-11-04 05:27] LABS: Calcium 5.5 MG/DL (8.5-10.1)
[2017-11-04] MEDS: ACETAMINOPHEN 325 MG TABLET PO PRN (05:36)
[2017-11-04] MEDS: POTASSIUM CHLORIDE 20 MEQ TABLET PO PRN ×4 (06:59→18:49)
[2017-11-04] MEDS ORDERED: MAGNESIUM SULF RIDER 2 GM in PREMIX 1 EACH IV PRN (07:53)
[2017-11-04] MEDS ORDERED: MAGNESIUM SULF RIDER 4 GM in PREMIX 1 EACH IV PRN (07:53)
[2017-11-04] MEDS: LISINOPRIL 10 MG TABLET PO SCH (08:52)
[2017-11-04] MEDS: PANTOPRAZOLE 40 MG TABLET PO SCH (08:52)
[2017-11-04] MEDS: ATENOLOL 25 MG TABLET PO SCH (08:52)
[2017-11-04] MEDS: DOCUSATE SODIUM 100 MG CAPSULE PO SCH ×2 (10:00→21:31)
[2017-11-04] MEDS ORDERED: LIDOCAINE 1%/EPI INJ 20 ML VIAL ONE (15:22)
[2017-11-04] MEDS ORDERED: BUPIVACAINE 0.25% /EPI 10 ML VIAL ONE (15:38)
[2017-11-04] MEDS ORDERED: SEVOFLURANE 1 UNIT/15 MINUTE INH ONE (15:59)
[2017-11-04] MEDS ORDERED: PROPOFOL 200 MG/20 ML VIAL IV ONE (15:59)
[2017-11-04] MEDS ORDERED: MIDAZOLAM 2 MG/2 ML VIAL ONE (15:59)
[2017-11-04] MEDS: cefTRIAXone 1,000 MG in SYRINGE 1 EACH IV SCH (17:15)
[2017-11-04] MEDS: ASPIRIN CHEW 81 MG TABLET PO SCH (21:31)
[2017-11-04] MEDS: ENOXAPARIN 40 MG/0.4 ML SYRINGE SUBCUT SCH (21:31)
[2017-11-04] MEDS: ROSUVASTATIN 20 MG TABLET PO SCH (21:31)
[2017-11-05] MEDS: SODIUM CHLORIDE 0.9% 1,000 ML IV SCH (00:26)
[2017-11-05] MEDS: VANCOMYCIN INJ 1,250 MG in SODIUM CHLORIDE 0.9% 250 ML IV SCH ×2 (05:06→17:29)
[2017-11-05 05:34] LABS: Basophils % 0.6 % (0.0-0.8); Eosinophils # 0.2 10*3/uL (0.0-0.87); Eosinophils % 2.6 % (0.00-10.9); Hematocrit 32.2 VOL% (42.0-52.0); Hemoglobin 11.1 GM/DL (14.0-18.0); Immature Granulocytes % 1.1 %; Immature Granulocytes Absolute 0.07 #; Lymphocytes # 0.8 10*3/uL (1.4-4.0); Lymphocytes % 11.7 % (21.2-54.2); Mean Corpuscular HGB Conc 34.5 GM/DL (32-36); Mean Corpuscular Hemoglobin 29 PG (27-34); Mean Corpuscular Volume 83.6 FL (87-102); Mean Platelet Volume 9.1 FL (9.6-12.0); Monocytes # 0.5 10*3/uL (0.11-0.8); Monocytes % 7.9 % (1.7-12.7); Neutrophils % 76.1 % (38.7-73.9); Platelet Count 122 T/CUMM (130-400); Red Blood Count 3.85 MC/CUMM (3.8-5.5); Red Cell Distribution Width 14.6 % (9.3-17.3); White Blood Count 6.6 T/CUMM (4-12)
[2017-11-05 05:48] LABS: Calcium 7.6 MG/DL (8.5-10.1); Osmolality,Calculated 276.5 MOS/KG (273-304); Potassium 4.3 MMOL/L (3.5-5.1)
[2017-11-05] MEDS: ATENOLOL 25 MG TABLET PO SCH (08:02)
[2017-11-05] MEDS: LISINOPRIL 10 MG TABLET PO SCH (08:02)
[2017-11-05] MEDS: PANTOPRAZOLE 40 MG TABLET PO SCH (08:02)
[2017-11-05] MEDS: DOCUSATE SODIUM 100 MG CAPSULE PO SCH ×2 (08:03→20:45)
[2017-11-05] MEDS: cefTRIAXone 1,000 MG in SYRINGE 1 EACH IV SCH (15:28)
[2017-11-05] MEDS: ROSUVASTATIN 20 MG TABLET PO SCH (20:43)
[2017-11-05] MEDS: ASPIRIN CHEW 81 MG TABLET PO SCH (20:44)
[2017-11-05] MEDS: ENOXAPARIN 40 MG/0.4 ML SYRINGE SUBCUT SCH (20:45)
[2017-11-06 04:26] LABS: Basophils % 0.7 % (0.0-0.8); Eosinophils # 0.3 10*3/uL (0.0-0.87); Eosinophils % 5.5 % (0.00-10.9); Hematocrit 32.9 VOL% (42.0-52.0); Hemoglobin 11.1 GM/DL (14.0-18.0); Immature Granulocytes % 0.7 %; Immature Granulocytes Absolute 0.04 #; Lymphocytes # 0.7 10*3/uL (1.4-4.0); Lymphocytes % 12.7 % (21.2-54.2); Mean Corpuscular HGB Conc 33.7 GM/DL (32-36); Mean Corpuscular Hemoglobin 28 PG (27-34); Mean Corpuscular Volume 82.9 FL (87-102); Mean Platelet Volume 8.5 FL (9.6-12.0); Monocytes # 0.5 10*3/uL (0.11-0.8); Monocytes % 9.3 % (1.7-12.7); Neutrophils # 3.9 10*3/uL (1.4-7.4); Neutrophils % 71.1 % (38.7-73.9); Platelet Count 136 T/CUMM (130-400); Red Blood Count 3.97 MC/CUMM (3.8-5.5); Red Cell Distribution Width 14.5 % (9.3-17.3); White Blood Count 5.5 T/CUMM (4-12)
[2017-11-06 05:00] LABS: Calcium 7.7 MG/DL (8.5-10.1); Osmolality,Calculated 275.7 MOS/KG (273-304); Potassium 4.1 MMOL/L (3.5-5.1)
[2017-11-06] MEDS: VANCOMYCIN INJ 1,250 MG in SODIUM CHLORIDE 0.9% 250 ML IV SCH (05:05)
[2017-11-06] MEDS ORDERED: CIPROFLOXACIN INJ 400 MG in PREMIX 1 EACH IV SCH (08:00)
[2017-11-06] MEDS ORDERED: MIDAZOLAM 2 MG/2 ML VIAL ONE (08:19)
[2017-11-06] MEDS: DOCUSATE SODIUM 100 MG CAPSULE PO SCH ×3 (08:41→22:32)
[2017-11-06] MEDS: LISINOPRIL 10 MG TABLET PO SCH (08:41)
[2017-11-06] MEDS: ATENOLOL 25 MG TABLET PO SCH (08:41)
[2017-11-06] MEDS: PANTOPRAZOLE 40 MG TABLET PO SCH (08:41)
[2017-11-06] MEDS: OXACILLIN 2,000 MG in SODIUM CHLORIDE 0.9% 100 ML IV SCH ×3 (14:28→22:28)
[2017-11-06] MEDS ORDERED: traMADol 50 MG TABLET PO PRN (21:27)
[2017-11-06] MEDS ORDERED: KETOROLAC 15 MG/1 ML VIAL IM PRN (21:29)
[2017-11-06] MEDS: ACETAMINOPHEN 325 MG TABLET PO PRN (22:23)
[2017-11-06] MEDS: ENOXAPARIN 40 MG/0.4 ML SYRINGE SUBCUT SCH (22:27)
[2017-11-06] MEDS: ASPIRIN CHEW 81 MG TABLET PO SCH (22:27)
[2017-11-06] MEDS: ROSUVASTATIN 20 MG TABLET PO SCH (22:27)
[2017-11-07] MEDS: OXACILLIN 2,000 MG in SODIUM CHLORIDE 0.9% 100 ML IV SCH ×4 (01:20→12:23)
[2017-11-07 04:23] LABS: Basophils # 0.1 10*3/uL (0.0-0.2); Basophils % 1.1 % (0.0-0.8); Eosinophils # 0.2 10*3/uL (0.0-0.87); Eosinophils % 4.9 % (0.00-10.9); Hematocrit 32.2 VOL% (42.0-52.0); Hemoglobin 10.7 GM/DL (14.0-18.0); Immature Granulocytes % 0.6 %; Immature Granulocytes Absolute 0.03 #; Lymphocytes % 20.4 % (21.2-54.2); Mean Corpuscular HGB Conc 33.2 GM/DL (32-36); Mean Corpuscular Hemoglobin 29 PG (27-34); Mean Corpuscular Volume 86.1 FL (87-102); Mean Platelet Volume 8.9 FL (9.6-12.0); Monocytes # 0.7 10*3/uL (0.11-0.8); Neutrophils # 2.8 10*3/uL (1.4-7.4); Platelet Count 129 T/CUMM (130-400); Red Blood Count 3.74 MC/CUMM (3.8-5.5); Red Cell Distribution Width 14.3 % (9.3-17.3); White Blood Count 4.7 T/CUMM (4-12)
[2017-11-07 04:40] LABS: Calcium 7.8 MG/DL (8.5-10.1); Osmolality,Calculated 273.7 MOS/KG (273-304); Potassium 4.2 MMOL/L (3.5-5.1)
[2017-11-07] MEDS: DOCUSATE SODIUM 100 MG CAPSULE PO SCH (08:31)
[2017-11-07] MEDS: PANTOPRAZOLE 40 MG TABLET PO SCH (08:31)
[2017-11-07] MEDS: LISINOPRIL 10 MG TABLET PO SCH (08:31)
[2017-11-07] MEDS: ATENOLOL 25 MG TABLET PO SCH (08:32)
[2017-11-07] MEDS ORDERED: SODIUM HYPOCHLORITE 0.25% IRRIG 473 ML BOTTLE TOP SCH (09:00)
[2017-11-07 12:27] VITALS: BP 178/76
== END 2017-11-07 14:45 | disposition home health service (06) | DRG 603 ==
LOC: N.ED 12:49 → N.EDINP 16:09 → N.TELEN 16:48
PROVIDERS: ADMIT Family Medicine; ATTEND Family Medicine